=== PATIENT | male | born 1955 | race Caucasian/White ===

== ENCOUNTER 2020-08-22 10:14 | Emergency (ER) | payer MEDICARE, MEDICAID, SELFPAY ==
[2020-08-22 10:22] VITALS: BP 129/76; PULSE 95; RESP 18; TEMP 37.1; O2SAT 95; BMI 20.4
--- NOTE | 2020-08-22 10:44 | ED_ITS ---
HPI - Male Genitourinary General Chief complaint: Urogenital-Male Stated complaint: urinary problems Time Seen by Provider: 08/22/20 10:36 Source: patient Mode of arrival: ambulatory Limitations: other (poor historian ) History of Present Illness HPI Narrative: 65 y/o male presenting with acute on chronic urinary in continence. He states he has had issues with being incontinent for years but his brother brought him in for evaluation because he keeps accidentally urinating at night at it is soaking into his mattress. He denies dysuria, urinary frequency, hematuria, urinary hestinancy or incomplete emptying. Denies fever, chills, abdominal pain. MD Complaint: other (urinary incontinence ) Related Data Previous Rx's Medication Instructions Recorded levofloxacin 250 mg PO DAILY #3 tab 08/22/20 Allergies Allergy/AdvReac Type Severity Reaction Status Date / Time No Known Allergies Allergy Verified 08/22/20 10:43 Review of Systems Review of Systems: Constitutional: No Fever, No Chills ENT/Mouth: No sore throat, No Rhinorrhea, No Swallowing Difficulty Eyes: No Eye Pain, No Swelling, No Redness Cardiovascular: No Chest Pain, No SOB, No Orthopnea, No Edema Respiratory: No Cough, No Sputum, No Wheezing, No dyspnea Gastrointestinal: No Nausea, No Vomiting, No Diarrhea, No abdominal Pain, No Hematochezia, No Melena Genitourinary: No Dysuria, No Urinary Frequency, No Hematuria, + urinary frequency Musculoskeletal: No joint pain, No Myalgias Skin: No Skin Lesions, + rash (chronic) Neuro: No Weakness, No Numbness, No Dizziness, No Headache Psych: + Anxiety/Panic, No Depression Heme/Lymph: No Bruising, No Lymphadenopathy Endocrine: No Polyuria, No [facility]ydipsia [facility] Past Medical History Attestation statement: The following information was validated with the patient. Medical History Hernia Poor historian Social History Social History Alcohol intake: current Alcohol intake frequency: a few times a week Smoking Status: Current every day smoker Smoked in Last 30 Days: Yes Use of substances other than those prescribed or required for medical reasons: No Advance Directives: No Advance Directives Information Provided: Yes Physical Exam Vital Signs: Vital Signs: Vital Signs Temp Pulse Resp BP Pulse Ox 08/22/20 14:30 98.3 F 80 18 141/88 H 96 08/22/20 14:26 80 141/88 H 96 08/22/20 10:22 98.7 F 95 18 129/76 95 Body Mass Index 20.4 Appearance: Alert. Oriented X3. No acute distress. Eyes: Pupils equal, round and reactive to light. ENT: Pharynx normal. Neck: Normal inspection. Neck supple. CVS: Normal heart rate and rhythm. Pulses normal. Respiratory: No respiratory distress. Breath sounds normal. Abdomen: Soft and nontender. large non-tender mass central abdomen, non- pulsitile, not reducible, no skin changes. +BS x4 Skin: Skin warm and dry. Normal skin color. Normal skin turgor. No rashes. Extremities: mild LE edema, toe with onychomycosis Neuro: Oriented X 3. No motor deficit. No sensory deficit. Repeating questions without comprehending why he is in the ER. Course Course Course Narrative: 65 y/o here with chronic urinary incontinence - will f/u UTI. palpable mass in abd could be full bladder and significant urinary retention although it is not tender. He has a history of a hernia but is a very poor hi sotiran and not sure if fullness in his abdomen is new or old, it does not bother him. bladder scan pending. Reevaluation(s) Reevaluation #1: Bladder scan showing >999 cc in bladder. Unsuccessul catheterization attempted by nurse, manoj as well as Dr. Lee. Different size catheters and coude attempted without success. Now small amount of urethral bleeding. Dr. Tucker has been contacted at 11:51am who will come in to attempt after his next procedure. CT scan abd/pelvis ordered to assess for possible obstructing tumor. Reevaluation #2: Dr. Tucker was able to place a Madsen catheter with wire guidance. recommending follow up in 10 days in the office. Patient does not seem to comprehend or understand his diagnosis of BPH and urinary retention. Frequently agitated and repeating the same questions over and over. Question cognitive impairment. Do not feel he will be able to be adequately managed at home. Case management consult placed and PT consult placed as well for possible rehab placement. Reevaluation #3: Plan for evaluation tomorrow for possible SNF placement. Empirically treating for UTI given instrumentation today. Multiple WBC but this can be contaminant from blood. Consultations Consultation #1: Urology - Dr. Tucker MDM - Male Genitourinary Lab Data Result diagrams: 08/22/20 14:37 08/22/20 14:38 Labs: Lab Results 08/22/20 08/22/20 08/22/20 Range/Units 14:34 14:37 14:38 WBC 11.6 H (4.8-10.8) X10*3/uL RBC 3.75 L (4.60-5.80) X10*6/uL Hgb 11.8 L (14.0-18.0) g/dl Hct 37.1 L (42-52) % MCV 98.9 H (80-98) fL MCH 31.5 (27.0-33.0) pg MCHC 31.8 (31.0-36.0) g/dl RDW 14.6 (11.0-16.0) % Plt Count 313 (160-400) X10*3/uL MPV 8.8 L (9.4-12.4) fL Immature Gran % (Auto) 0.4 (0.0-0.4) % Neut % (Auto) 80.0 H (45-73) % Lymph % (Auto) 10.2 L (20-40) % [place] % (Auto) 8.4 (2-11) % Eos % (Auto) 0.7 (0-4) % Baso % (Auto) 0.3 (0-2) % Lymph # (Auto) 1.2 (1.2-4.9) X10*3/uL [place] # (Auto) 1.0 (0.1-1.2) X10*3/uL Eos # (Auto) 0.1 (0.0-0.4) X10*3/uL Baso # (Auto) 0.0 (0.0-0.2) X10*3/uL Abs Immat Gran (auto) 0.05 H (0.00-0.03) X10*3/uL Absolute Neuts (auto) 9.3 H (2.0-8.3) X10*3/uL Absolute Nucleated RBC 0.000 (0.0-0.012) X10*3/uL Nucleated RBC % (auto) 0.0 (0.0-0.2) /100WBC Sodium 143 (135-145) mmol/L Potassium 4.2 (3.3-5.1) mmol/l Chloride 108 (96-108) mmol/L Carbon Dioxide 27 (22-29) mmol/L Anion Gap 12 (12-20) BUN 20 H (9-16) mg/dL Creatinine 1.44 H (0.5-1.4) mg/dL Estim Creat Clear Calc 42.8 Estimated GFR 49 Random Glucose 95 (60-115) mg/dL Calcium 8.9 (8.4-10.2) mg/dL Urine Color PINK Urine Appearance CLOUDY Urine pH 6.0 (5.0-8.0) Ur Specific [place] 1.015 (1.005-1.025) Urine Protein TRACE (NEG-TRACE) MG/DL Urine Glucose (UA) NEG (NEG) MG/DL Urine Ketones NEG (NEG) MG/DL Urine Blood 3+ H (NEG) Urine Nitrite NEG (NEG) Ur Leukocyte Esterase 3+ H (NEG) Urine RBC TNTC H (0) /HPF Urine WBC 76-150 H (0-4) /HPF Ur Squamous Epith Cells NONE /LPF Urine Bacteria 1+ /LPF Discharge Plan Discharge Clinical Impression: Acute urinary retention, Enlarged prostate, Obstructive uropathy, LYNN (acute kidney injury) Prescriptions: New levofloxacin 250 mg tablet 250 mg PO DAILY Qty: 3 RF: 0
[2020-08-22] MEDS: Lidocaine HCl 2 % Urojet 10 ML JEL.PF.APP TOPICAL ×2 (11:28→14:56)
--- NOTE | 2020-08-22 11:45 | PC.NURSE ---
Addendum entered by Naomi Valentino 08/22/20 11:48: PT ATTEMPTED TO URINATE ON OWN, BUT UNABLE Original Note: PT'S BLADDER DISTENDED. BLADDER SCAN SHOWS >999ML. PROVIDER MADE AWARE AND DIRECTED THIS RN TO STRAIGHT CATH. THIS RN, HEALTHCARE FACILITY ADMINISTRATORARSLAN STAFFORD, PROVIDER KWADWO, AND DR CUELLAR ALL UNABLE TO INSERT HUERTA D/T RESISTANCE. BRIGHT RED BLEEDING FROM TIP OF PENIS. BLEEDING NOW CONTROLLED. UROLOGY CONSULTED
--- NOTE | 2020-08-22 11:52 | CT_ITS ---
EXAMINATION: CT ABDOMEN AND PELVIS WITHOUT CONTRAST CLINICAL INFORMATION: Urinary retention. Prostatomegaly. COMPARISON: None TECHNIQUE: Multidetector volumetric imaging was performed from the superior aspect of the liver through the pubic symphysis. Sagittal And coronal reformatted images were obtained on the technologist's workstation. This CT examination was performed using dose optimization techniques as appropriate, variously including the following: *Automated exposure control *Adjustment of mA and/or kV according to patient size (this includes techniques or standardized protocols for targeted exams where dose is matched to indication/reason for exam; i.e. extremities or head) *Use of iterative reconstruction technique DLP: 318 mGy-cm FINDINGS: LUNG BASES: There is some interstitial fibrosis seen about the lung bases bilaterally. No pleural effusion. There is a small pericardial effusion. Coronary artery calcifications noted. LIVER, GALLBLADDER, AND BILIARY TREE: The liver is normal in size, shape, and attenuation. No biliary ductal dilatation is present. There is a subcentimeter low-density lesion seen within segment 3 of the liver likely representing a cyst. The gallbladder is unremarkable with no evidence of radiopaque gallstones, gallbladder wall thickening, or obvious pericholecystic inflammatory changes. PANCREAS: Unremarkable. No focal mass is identified. No ductal dilatation. SPLEEN: Unremarkable. ADRENAL GLANDS: Unremarkable. KIDNEYS AND URETERS and bladder: There is moderate to severe bilateral hydronephrosis. No renal calculi are identified. Hydroureter is seen bilaterally down to a very distended urinary bladder. No definite bladder mass is seen. No significant bladder wall thickening is evident. No calcifications within the bladder are seen. GASTROINTESTINAL TRACT: No dilated loops of large or small bowel are seen. No free air or free fluid is noted. There is a large amount of stool seen throughout the colon. No evidence of acute appendicitis or acute diverticulitis. ABDOMINAL WALL: There is a left inguinal hernia containing a portion of descending colon. No evidence of strangulation. LYMPH NODES: No lymphadenopathy is appreciated. VASCULAR: There is mild calcific plaque within the aortoiliac arterial system. No abdominal aortic aneurysm. PELVIC VISCERA: The prostate gland is enlarged measuring approximately 5.8 x 6.8 x 5.5 cm in size. Prostatic calcifications are present. OSSEOUS STRUCTURES: No suspicious destructive bony lesions are identified. There is an old healed right posterior 10th rib fracture. There is multilevel degenerative disc disease seen throughout the lumbar spine. IMPRESSION: Obstructive uropathy with large prostate gland and distended urinary bladder with bilateral hydroureter and moderate to severe hydronephrosis. No definite intrinsic bladder lesion is seen on this noncontrast study. Small pericardial effusion. Small left inguinal hernia with knuckle of descending colon. This has the appearance of a direct inguinal hernia.
--- NOTE | 2020-08-22 12:26 | PC.NURSE ---
PT OFF TO CT
--- NOTE | 2020-08-22 13:20 | PC.NURSE ---
DR. MEJIA ABLE TO PLACE HUERTA CATHETER. HUERTA DRAINED 1800 ML RED TINTED URINE.
[2020-08-22 14:26] VITALS: BP 141/88; PULSE 80; O2SAT 96
--- NOTE | 2020-08-22 14:27 | PC.NURSE ---
PHYSICAL THERAPIST AT BEDSIDE FOR EVALUATION
[2020-08-22 14:30] VITALS: BP 141/88; PULSE 80; RESP 18; TEMP 36.8; O2SAT 96
[2020-08-22 14:42] LABS: MANUAL DIFF FLAG NO
[2020-08-22 14:46] LABS: Basophils Percent Auto 0.3 % (0-2); Eosinophils Absolute Auto 0.1 X10*3/uL (0.0-0.4); Eosinophils Percent Auto 0.7 % (0-4); Hematocrit 37.1 % (42-52); Hemoglobin 11.8 g/dl (14.0-18.0); Imm Gran Abs Auto 0.05 X10*3/uL (0.00-0.03); Imm Gran Pct Auto 0.4 % (0.0-0.4); Lymphocytes Absolute Auto 1.2 X10*3/uL (1.2-4.9); Lymphocytes Percent Auto 10.2 % (20-40); Mean Corpuscular HGB Conc 31.8 g/dl (31.0-36.0); Mean Corpuscular Hemoglobin 31.5 pg (27.0-33.0); Mean Corpuscular Volume 98.9 fL (80-98); Mean Platelet Volume 8.8 fL (9.4-12.4); Monocytes Percent Auto 8.4 % (2-11); Neutrophils Absolute Auto 9.3 X10*3/uL (2.0-8.3); Platelet Count 313 X10*3/uL (160-400); Red Blood Count 3.75 X10*6/uL (4.60-5.80); Red Cell Distribution Width 14.6 % (11.0-16.0); White Blood Count 11.6 X10*3/uL (4.8-10.8)
[2020-08-22 14:49] LABS: Glucose Urine UA NEG (NEG); Leukocyte Esterase Urine 3+ (NEG); Nitrite Urine NEG (NEG); Specific Gravity - Urine 1.015 (1.005-1.025); Urine Blood 3+ (NEG); Urine Ketones NEG (NEG); Urine Protein TRACE MG/DL (NEG-TRACE)
[2020-08-22 14:50] LABS: Appearance Urine CLOUDY; Color Urine PINK
[2020-08-22 14:57] LABS: Bacteria Urine 1+ /LPF; RBC Urine TNTC /HPF (0)
[2020-08-22 15:05] LABS: Anion Gap 12 (12-20); Blood Urea Nitrogen 20 mg/dL (9-16); Calcium 8.9 mg/dL (8.4-10.2); Carbon Dioxide 27 mmol/L (22-29); Chloride 108 mmol/L (96-108); Creatinine Clr Calc Pharmacy 42.8; Estimated Glomerular Filt Rate 49; Glucose Random 95 mg/dL (60-115); Potassium 4.2 mmol/l (3.3-5.1); Sodium 143 mmol/L (135-145)
[2020-08-22] MEDS: levoFLOXacin 500 MG TABLET PO (16:45)
--- NOTE | 2020-08-22 17:33 | MHC.CM.ED ---
[facility]VERSATION WITH SISTER IN LAW. FACILITY FEELS PATIENT HAS NO SKILL TO ADMIT. PHONE CONVERSATION WITH LIAISON RESULTED IN A REVIEW TOMORROW AND A TALK WITH FACILITY DON. PATIENT IS UNABLE TO BE TAUGHT CATH CARE. FAMILY IS UNABLE TO ASSIST WITH CATH CARE. PATIENT COULD BENEFIT FROM SKILLED P.T. SERVICES WELL.
--- NOTE | 2020-08-22 17:47 | MHC.CM.ED ---
MESSAGE LEFT @ [phone] (BROTHERMARLON) TO RETURN CALL TO THIS GAS OPERATOR WITH UPDATES. NO CALL BACK OF THIS NOTE.
[2020-08-22 21:54] VITALS: BP 133/85; PULSE 95; RESP 20; TEMP 37.6; O2SAT 99
[2020-08-23] VITALS (8 sets, daily range): BP systolic 99–123; BP diastolic 59–81; PULSE 71–89; RESP 14–18; TEMP 36.3–36.9; O2SAT 95–98
--- NOTE | 2020-08-23 00:13 | PC.NURSE ---
PT GIVEN A SANDWHICH AND GINGERALE AND CRACKERS. PT HAS MOMENTS OF TALKING OUT LOUD. NEEDS MET AT BEDSIDE. PT DENIES PAIN AND STATES HE FEELS OK.
--- NOTE | 2020-08-23 06:37 | PC.NURSE ---
fernando emptied for 1100 cc of blood tinged urine, no clots present, pt denies pain, abd soft flat and nontender.
--- NOTE | 2020-08-23 07:00 | PC.NURSE ---
PT SLEEPING RESP EVEN AND UNLABORBED. HOB UP, PT REPOSITIONED
--- NOTE | 2020-08-23 08:36 | PM.OP ---
Brief Operative Note Date of procedure: 08/23/20 Pre-op diagnosis: Difficult fernando catheter placement Post-op diagnosis: same Procedure: Difficult fernando catheter placement Surgeon: Aurelio Tucker MD Anesthesia: none Estimated blood loss (mL): 0 Pathology: none sent Condition: stable Disposition: same day
--- NOTE | 2020-08-23 08:37 | W.PM.OPN ---
Operative Note Operative Note Narrative: PreOperative Diagnosis: Difficult Catheter Placement Post Operative Diagnosis: Difficult Catheter Placement Procedure: Madsen catheter placement Surgeon: Dr Aurelio Tucker Anesthesia: Local Indications for procedure: hospital staff unable to place Madesn catheter Prw in outpatiente: penis prepped Lidocaine jelly placed per urethra Sensor guidewire placed Twenty Chinese coude catheter placed 10 cc placed in the balloon Good urine output 1250 cc in bag Can follow in outpatient
--- NOTE | 2020-08-23 08:55 | PC.NURSE ---
pt seen by case management (susan) pt aware of plan of care.
[2020-08-23] MEDS: levoFLOXacin 750 MG TABLET PO (09:57)
[2020-08-23 13:21] LABS: SARS COV2 PCR INHOUSE NEGATIVE (Negative)
[2020-08-23] MEDS: Nicotine 14 MG PATCH.TD24 TRANSDERMA (13:28)
--- NOTE | 2020-08-23 14:22 | MHC.CM.ED ---
pt has requested to go to [facility], ref. has been, patient accepted. pt is leaving [facility] at 330 pm. family notified of dc plan and time. all e.d. staff made aware of dc plan and time. cm to cont. to follow.
--- NOTE | 2020-08-23 14:26 | PC.NURSE ---
pt fernando cath is patent and draining oli red blood no clots noted. sue (mlp) at bedside. pt aware of plan of care.
--- NOTE | 2020-08-23 14:38 | PC.NURSE ---
PT'S HUERTA CATH EMPTIED FOR 1000ML JANEE RED BLOOD OF URINE, ANGELES (MLP) AT BEDSIDE, PT STATES THAT HE MAY HAVE PULLED AT HUERTA BECAUSE EARLIER ON HUERTA CATH CONTENTS WERE PINK IN COLOR.
--- NOTE | 2020-08-23 14:39 | PC.NURSE ---
NO BLOOD CLOTS NOT FROM HUERTA CATHANGELES (MLP) AWARE/.
--- NOTE | 2020-08-23 15:10 | MHC.CM.ED ---
pt's dc is cancelled d/t hematuria. dr. burt to see pt in the e.d. dc to snf may happen tomorrow. all e.d. staff aware of this new information. pt's family called to notify of dc. cm to cont. to follow.
--- NOTE | 2020-08-23 15:22 | PC.NURSE ---
REPORT FROM AGNES BARRERA
--- NOTE | 2020-08-23 16:09 | PC.NURSE ---
HUERTA DRAINING BLOODY URINE, NO CLOTS NOTED IRRIGATED WITH EASE, NO CLOTS PT YELLING AND SWEARING AT STAFF BECAUSE HE IS NOTE GOING TO THE SNF
--- NOTE | 2020-08-23 17:43 | PC.NURSE ---
BLOODY URINE NOTED, NO CLOTS PT SLEEPING, RESPIRATIONS EASY AND EVEN
--- NOTE | 2020-08-23 18:54 | PC.NURSE ---
100% OF DINNER TAKEN WELL PT IS VERY COOPERATIVE
--- NOTE | 2020-08-23 23:50 | PC.NURSE ---
RECIVED REPORT FROM HOLLY ALBERTO PT IS CURRENTLY ASLEEP, RESPIRATIONS EVEN AND UNLABORED, IN NO APPARENT DISTRESS AT THIS TIME
--- NOTE | 2020-08-24 00:10 | PC.NURSE ---
PT IS CURRENTLY ASLEEP, RESPIRATIONS EVEN AND UNLABORED, HUERTA IN PLACE, DRAINING MEDIUM CRANBERRY IN COLOR, SPOKE TO DR BEE ABOUT THE HEMATURIA, THIS RN RECOMMENDED THAT WE REPEAT LABD, H+H AND KIDNEY FUNCTIONS AND MAYBE CONSULT WITH DR. MEJIA WELL. THIS RN WAS REPORTED THAT SNIFF TRANSFER WAS PUT ON HOLD DUE TO THE HEMATURIA. HUERTA DARNING AROUND 1600CC
[2020-08-24 00:54] VITALS: BP 115/67; PULSE 75; RESP 16; O2SAT 95
--- NOTE | 2020-08-24 02:05 | PC.NURSE ---
pt continuos on sleeping, respirations even and unlabored, fernando emptied of 1500cc of red blood urin
[2020-08-24 02:19] VITALS: RESP 16
[2020-08-24 05:50] VITALS: BP 126/78; PULSE 68; RESP 14; O2SAT 93
[2020-08-24 06:04] LABS: MANUAL DIFF FLAG NO
[2020-08-24 06:14] LABS: Basophils Percent Auto 0.2 % (0-2); Eosinophils Absolute Auto 0.4 X10*3/uL (0.0-0.4); Eosinophils Percent Auto 3.2 % (0-4); Hematocrit 37.1 % (42-52); Imm Gran Abs Auto 0.06 X10*3/uL (0.00-0.03); Imm Gran Pct Auto 0.5 % (0.0-0.4); Lymphocytes Absolute Auto 1.2 X10*3/uL (1.2-4.9); Lymphocytes Percent Auto 9.2 % (20-40); Mean Corpuscular HGB Conc 32.3 g/dl (31.0-36.0); Mean Corpuscular Hemoglobin 32.1 pg (27.0-33.0); Mean Corpuscular Volume 99.2 fL (80-98); Mean Platelet Volume 9.1 fL (9.4-12.4); Monocytes Absolute Auto 1.3 X10*3/uL (0.1-1.2); Monocytes Percent Auto 10.2 % (2-11); Neutrophils Absolute Auto 9.9 X10*3/uL (2.0-8.3); Neutrophils Percent Auto 76.7 % (45-73); Platelet Count 291 X10*3/uL (160-400); Red Blood Count 3.74 X10*6/uL (4.60-5.80); Red Cell Distribution Width 14.6 % (11.0-16.0); White Blood Count 12.9 X10*3/uL (4.8-10.8)
[2020-08-24 06:34] LABS: Alanine Aminotransferase 7 U/L (0-40); Alkaline Phosphatase 96 U/L (39-117); Anion Gap 11 (12-20); Aspartate Amino Transferase 10 U/L (5-37); Bilirubin Total 0.3 mg/dL (0.0-1.0); Blood Urea Nitrogen 21 mg/dL (9-16); Carbon Dioxide 26 mmol/L (22-29); Chloride 105 mmol/L (96-108); Creatinine Clr Calc Pharmacy 52.7; Estimated Glomerular Filt Rate > 60; Glucose Random 107 mg/dL (60-115); Potassium 4.2 mmol/l (3.3-5.1); Sodium 138 mmol/L (135-145); Total Protein 5.9 g/dL (6.5-8.0)
[2020-08-24 08:41] VITALS: BP 126/79; PULSE 79; RESP 18
--- NOTE | 2020-08-24 08:50 | MHC.CM.ED ---
pt has a bed at [facility] , however pt is not medically cleared at this time. pa has a call into urology to address hematuria. once urology sees pt then he can be medically cleared and go to str or require further attention here. cm is on hold waiting for direction from wilmar XIE . cm is cont. to follow patient.
[2020-08-24] MEDS: levoFLOXacin 750 MG TABLET PO (09:13)
[2020-08-24 10:10] VITALS: BP 111/60; PULSE 111; RESP 22
--- NOTE | 2020-08-24 12:02 | PC.NURSE ---
provider ordering another consult with dr messina
--- NOTE | 2020-08-24 13:42 | MHC.CM.ED ---
pt has been seen by urologist today. pa has medically cleared patient. he is dc'ing to [facility] today at 330 pm . all e.d. staff is aware of this dc plan. cm to cont. to follow.
[2020-08-24 17:52] VITALS: BP 105/81; PULSE 84; RESP 16
--- NOTE | 2020-08-24 17:53 | PC.NURSE ---
patient to go to [facility], Transportation is behind (action).
== END 2020-08-24 18:51 ==
PROVIDERS: Physician Assistant; Student in an Organized Health Care Education/Training Program; Emergency Provider Emergency Medicine
DX: R33.9 Retention of urine, unspecified (principal); Z20.828 Contact with and (suspected) exposure to other viral communicable diseases; N40.0 Benign prostatic hyperplasia without lower urinary tract symptoms; N13.9 Obstructive and reflux uropathy, unspecified; N17.9 Acute kidney failure, unspecified
CPT/HCPCS: 51702; 36415; 51798; 74176; 80048; 80053; 81001; 85025; 87086; 87088; 87186; 87635; 97162; 99285

== ENCOUNTER → 2020-09-04 10:19 | Outpatient (BNVA) | payer MEDICARE, MEDICAID, SELFPAY | PROVIDERS: Visit Provider Urology | DX: Z76.89 Persons encountering health services in other specified circumstances (principal) | CPT/HCPCS: 51701; 99212 ==

== ENCOUNTER 2020-09-21 18:06 | Inpatient (IN) | payer MEDICARE, MEDICAID, SELFPAY ==
[2020-09-21 19:10] VITALS: BP 99/80; PULSE 106; RESP 20; TEMP 36.5; O2SAT 98; BMI 20.1
--- NOTE | 2020-09-21 19:16 | PC.NURSE ---
CRAB BUTCHER at bedside for primary eval. Plan for UA, labwork and fernando change.
--- NOTE | 2020-09-21 19:20 | XR_ITS ---
EXAMINATION: XR CHEST CLINICAL INFORMATION: Baseline COMPARISON: None TECHNIQUE: Frontal view of the chest was obtained. 7:27 PM FINDINGS: Lungs are clear. No pulmonary vascular congestion. There is no pleural effusion. The heart size is normal. The cardiac and mediastinal contours are normal. There are multilevel degenerative changes of dorsal spine. XR/XR chest 1V IMPRESSION: Unremarkable examination.
--- NOTE | 2020-09-21 19:20 | ECG_ITS ---
Test Reason : AMS Blood Pressure : / mmHG Vent. Rate : 088 BPM Atrial Rate : 088 BPM P-R Int : 158 ms QRS Dur : 098 ms QT Int : 402 ms P-R-T Axes : 061 -17 060 degrees QTc Int : 486 ms Sinus rhythm with Premature atrial complexes Intra-ventricular conduction delay Abnormal ECG No previous ECGs available Referred By: Regina Delvalle Electronically Signed By:JANEE MOSQUEDA MD
--- NOTE | 2020-09-21 19:24 | PC.NURSE ---
PT ARRIVES TO ED VIA AMBULANCE FROM [facility] HE PRESENTS WITH NO FACILITY REPORT, AND NO EMS PATCH. HE IS IN NO OUTWARD DISTRESS AND IS ABLE TO STATE HIS NAME AND WHERE HE WAS. HE ALSO STATES HIS BROTHER IS HIS GUARDIAN AND THAT HE MOVED HIM HERE TO [facility]-HIS BROTHER IS IN [place] CURRENTLY. THIS RN CALLED AND SPOKE TO MARY BARRERA AT [facility] AND SHE STATES THE SOCIAL WORK TEAM AT [facility] HAD ARRANGED FOR HIS TRANSPORT BACK TO THIS ED, FOR PLACEMENT REQUESTED BY HIS BROTHER. INCLUDED IN HIS PAPERS IS THE PERMANENT DECREE OF GUARDIANSHIP STATING HIS BROTHER IN[employer] FOOTE IS HIS LEGALLY APPOINTED GUARDIAN. HE WAS ADMITTED ON 08/24/20 TO [facility] FROM THIS FACILITY. NURSING GAS CHECK PAD MAKER IS AWARE OF THIS PT AND ORTHOPEDIC SHOES SALESPERSON YOLANDA HINES WAS CONTACTED AND AWARE WELL,.ACCORDING TO THE REPORT BACK,THE HOSPITAL ADMINISTRATION IS AWARE OF THIS CASE AND PLAN IS TO HOLD HIM HERE FOR THE WEEKEND AND THE SITUATION WILL BE ADDRESSED FURTHER ON THURSDAY PROVIDER LIEN ORDONEZ IS AWARE AND PT WILL BE MEDICALLY CLEARED WHILE HOLDING IN ED.
--- NOTE | 2020-09-21 19:33 | PC.NURSE ---
XRay at bedside.
--- NOTE | 2020-09-21 19:53 | PC.NURSE ---
IV established, all labs including BCX x 2 and lactic obtained and sent. Urine obtained and sent. shampoo technician at bedside for EKG and fernando change. Awaiting labwork results.
--- NOTE | 2020-09-21 19:53 | ED.GENADULT ---
HPI - General Adult General Chief complaint: General Medical Stated complaint: PSYCH EVAL Time Seen by Provider: 09/21/20 19:20 Source: EMS Mode of arrival: EMS Limitations: altered mental status History of Present Illness HPI narrative: 65-year-old male with altered mental status, chronic Madsen presents for evaluation. Patient was transported to this facility from [facility] via EMS for his brother's request. Brother is the guardian, in [place] at this time, guardian is dissatisfied with [facility], and wants him placed in a different facility. Patient's urine is blood tinged with sediment, he is pleasantly confused, compliant with care, and does not have any complaints at this time. Onset (ago): unknown Related Data Previous Rx's Medication Instructions Recorded levofloxacin 250 mg PO DAILY #3 tab 08/22/20 Allergies Allergy/AdvReac Type Severity Reaction Status Date / Time No Known Allergies Allergy Verified 08/22/20 10:43 Review of Systems Review of Systems: ROS unable to be obtained due to altered mental status Yes all other systems are reviewed and are negative [facility] Past Medical History Source: old records reviewed Medical History Hernia Poor historian Social History Social History Alcohol intake: current Alcohol intake frequency: a few times a week Smoking Status: Current every day smoker Advance Directives: No Advance Directives Information Provided: No Physical Exam Vital Signs: Vital Signs: Last Vital Signs Temp 97.8 F 09/22/20 00:00 Pulse 75 09/22/20 00:00 Resp 18 09/22/20 00:00 BP 114/64 09/22/20 00:00 Pulse Ox 97 09/22/20 00:00 Body Mass Index 20.1 Appearance: Alert. Oriented To self. No acute distress. Eyes: Pupils equal, round and reactive to light. ENT: Pharynx normal. Neck: Normal inspection. Neck supple. CVS: Normal heart rate and rhythm. Pulses normal. Respiratory: No respiratory distress. Breath sounds normal. Abdomen: Soft and nontender. : chronic Madsen with sediment and blood tinged urine. Skin: Skin warm and dry. Normal skin color. Normal skin turgor. Extremities: No lower extremity edema. Neuro: No motor deficit. No sensory deficit. Course Course Course Narrative: 65-year-old male under guardianship of his brother, presents for a social insurance specialist hold. He was patient in this facility on 08/22/2020 and was placed at [facility]. His brother, who is guardian, found out that he was at this facility, brother disapproval of this facility and requested that patient be transferred to [facility]. This patient had a [facility] order in place however does not have 1 at present. Our case management Sylvester Robertson is aware of this situation, nursing telephone order supervisor was updated by charge nurse upon patient's arrival. [facility]'s legal team will meet on Thursday for placement of this patient. Given the condition of patient's Madsen, will order urinalysis, Madsen change, CBC, Chem 7, EKG, troponin. urinalysis positive for UTI, order for IV ceftriaxone. BUN mildly elevated at 17, however patient is eating and drinking without difficulty. Plan of care is for case management social insurance specialist for placement. Medical Decision Making Differential Diagnosis Differential Diagnosis: UTI, urinary retention Medical Records Medical records reviewed: Yes I reviewed the patient's medical records. Lab Data Lab results reviewed: Yes I reviewed the patient's lab results. Result diagrams: 09/21/20 19:47 09/21/20 19:47 Labs: Lab Results 09/21/20 09/21/20 09/21/20 Range/Units 19:47 19:47 19:47 WBC 9.1 (4.8-10.8) X10*3/uL RBC 3.80 L (4.60-5.80) X10*6/uL Hgb 12.0 L (14.0-18.0) g/dl Hct 37.2 L (42-52) % MCV 97.9 (80-98) fL MCH 31.6 (27.0-33.0) pg MCHC 32.3 (31.0-36.0) g/dl RDW 13.6 (11.0-16.0) % Plt Count 381 (160-400) X10*3/uL MPV 8.8 L (9.4-12.4) fL Immature Gran % (Auto) 0.5 H (0.0-0.4) % Neut % (Auto) 76.6 H (45-73) % Lymph % (Auto) 10.2 L (20-40) % Freestone % (Auto) 8.5 (2-11) % Eos % (Auto) 4.0 (0-4) % Baso % (Auto) 0.2 (0-2) % Lymph # (Auto) 0.9 L (1.2-4.9) X10*3/uL Freestone # (Auto) 0.8 (0.1-1.2) X10*3/uL Eos # (Auto) 0.4 (0.0-0.4) X10*3/uL Baso # (Auto) 0.0 (0.0-0.2) X10*3/uL Abs Immat Gran (auto) 0.05 H (0.00-0.03) X10*3/uL Absolute Neuts (auto) 7.0 (2.0-8.3) X10*3/uL Absolute Nucleated RBC 0.000 (0.0-0.012) X10*3/uL Nucleated RBC % (auto) 0.0 (0.0-0.2) /100WBC PT 12.5 (10.8-13.0) SEC INR 1.1 (0.9-1.1) APTT 37.0 (24.1-38.0) SEC Sodium 141 (135-145) mmol/L Potassium 4.0 (3.3-5.1) mmol/l Chloride 104 (96-108) mmol/L Carbon Dioxide 27 (22-29) mmol/L Anion Gap 14 (12-20) BUN 17 H (9-16) mg/dL Creatinine 0.76 (0.5-1.4) mg/dL Estim Creat Clear Calc 77.7 Estimated GFR > 60 Random Glucose 101 (60-115) mg/dL Lactic Acid (0.5-2.0) mmol/L Calcium 8.4 (8.4-10.2) mg/dL Magnesium 2.0 (1.6-2.6) mg/dL Troponin I High Sens (<3.5-35.0) ng/L Urine Color Urine Appearance Urine pH (5.0-8.0) Ur Specific Woodbury (1.005-1.025) Urine Protein (NEG-TRACE) MG/DL Urine Glucose (UA) (NEG) MG/DL Urine Ketones (NEG) MG/DL Urine Blood (NEG) Urine Nitrite (NEG) Ur Leukocyte Esterase (NEG) Urine RBC (0) /HPF Urine WBC (0-4) /HPF Ur Squamous Epith Cells /LPF Triple Phos Crystals /LPF Urine Bacteria /LPF 09/21/20 09/21/20 09/21/20 Range/Units 19:47 19:47 19:48 WBC (4.8-10.8) X10*3/uL RBC (4.60-5.80) X10*6/uL Hgb (14.0-18.0) g/dl Hct (42-52) % MCV (80-98) fL MCH (27.0-33.0) pg MCHC (31.0-36.0) g/dl RDW (11.0-16.0) % Plt Count (160-400) X10*3/uL MPV (9.4-12.4) fL Immature Gran % (Auto) (0.0-0.4) % Neut % (Auto) (45-73) % Lymph % (Auto) (20-40) % Freestone % (Auto) (2-11) % Eos % (Auto) (0-4) % Baso % (Auto) (0-2) % Lymph # (Auto) (1.2-4.9) X10*3/uL Freestone # (Auto) (0.1-1.2) X10*3/uL Eos # (Auto) (0.0-0.4) X10*3/uL Baso # (Auto) (0.0-0.2) X10*3/uL Abs Immat Gran (auto) (0.00-0.03) X10*3/uL Absolute Neuts (auto) (2.0-8.3) X10*3/uL Absolute Nucleated RBC (0.0-0.012) X10*3/uL Nucleated RBC % (auto) (0.0-0.2) /100WBC PT (10.8-13.0) SEC INR (0.9-1.1) APTT (24.1-38.0) SEC Sodium (135-145) mmol/L Potassium (3.3-5.1) mmol/l Chloride (96-108) mmol/L Carbon Dioxide (22-29) mmol/L Anion Gap (12-20) BUN (9-16) mg/dL Creatinine (0.5-1.4) mg/dL Estim Creat Clear Calc Estimated GFR Random Glucose (60-115) mg/dL Lactic Acid 1.5 (0.5-2.0) mmol/L Calcium (8.4-10.2) mg/dL Magnesium (1.6-2.6) mg/dL Troponin I High Sens < 3.5 (<3.5-35.0) ng/L Urine Color MAGDALENA Urine Appearance CLOUDY Urine pH >= 9.0 H (5.0-8.0) Ur Specific Woodbury <= 1.005 (1.005-1.025) Urine Protein 3+ H (NEG-TRACE) MG/DL Urine Glucose (UA) NEG (NEG) MG/DL Urine Ketones NEG (NEG) MG/DL Urine Blood 3+ H (NEG) Urine Nitrite POS H (NEG) Ur Leukocyte Esterase 3+ H (NEG) Urine RBC 50-75 H (0) /HPF Urine WBC 5-9 H (0-4) /HPF Ur Squamous Epith Cells NONE /LPF Triple Phos Crystals 1+ /LPF Urine Bacteria 3+ /LPF Imaging Data Chest x-ray: Attestation: I personally reviewed and interpreted this imaging study as follows: Radiologist's impression: EXAMINATION: XR CHEST CLINICAL INFORMATION: Baseline COMPARISON: None TECHNIQUE: Frontal view of the chest was obtained. 7:27 PM FINDINGS: Lungs are clear. No pulmonary vascular congestion. There is no pleural effusion. The heart size is normal. The cardiac and mediastinal contours are normal. There are multilevel degenerative changes of dorsal spine. XR/XR chest 1V IMPRESSION: Unremarkable examination. ECG Data Attestation: I personally reviewed and interpreted this ECG as follows: Prior ECG tracings: not available for review Interpretation: Vent. Rate : 088 BPM Atrial Rate : 088 BPM P-R Int : 158 ms QRS Dur : 098 ms QT Int : 402 ms P-R-T Axes : 061 -17 060 degrees QTc Int : 486 ms Sinus rhythm with Premature atrial complexes Prolonged QT Abnormal ECG No previous ECGs available date 09/21/2020 time 7:53 p.m. Discharge Plan Discharge Prescriptions: No Action levofloxacin 250 mg tablet 250 mg PO DAILY Qty: 3 RF: 0
[2020-09-21 19:56] LABS: MANUAL DIFF FLAG NO
[2020-09-21 19:58] LABS: Glucose Urine UA NEG (NEG); Leukocyte Esterase Urine 3+ (NEG); Nitrite Urine POS (NEG); PH >= 9.0 (5.0-8.0); Specific Gravity - Urine <= 1.005 (1.005-1.025); Urine Blood 3+ (NEG); Urine Ketones NEG (NEG)
[2020-09-21 19:59] LABS: Appearance Urine CLOUDY; Color Urine AMBER; Urine Protein 3+ MG/DL (NEG-TRACE)
[2020-09-21 20:00] LABS: Basophils Percent Auto 0.2 % (0-2); Eosinophils Absolute Auto 0.4 X10*3/uL (0.0-0.4); Hematocrit 37.2 % (42-52); Imm Gran Abs Auto 0.05 X10*3/uL (0.00-0.03); Imm Gran Pct Auto 0.5 % (0.0-0.4); Lymphocytes Absolute Auto 0.9 X10*3/uL (1.2-4.9); Lymphocytes Percent Auto 10.2 % (20-40); Mean Corpuscular HGB Conc 32.3 g/dl (31.0-36.0); Mean Corpuscular Hemoglobin 31.6 pg (27.0-33.0); Mean Corpuscular Volume 97.9 fL (80-98); Mean Platelet Volume 8.8 fL (9.4-12.4); Monocytes Absolute Auto 0.8 X10*3/uL (0.1-1.2); Monocytes Percent Auto 8.5 % (2-11); Neutrophils Percent Auto 76.6 % (45-73); Platelet Count 381 X10*3/uL (160-400); Red Cell Distribution Width 13.6 % (11.0-16.0); White Blood Count 9.1 X10*3/uL (4.8-10.8)
[2020-09-21 20:02] LABS: INTERNATIONAL NORM RATIO 1.1 (0.9-1.1); Prothrombin Time 12.5 SEC (10.8-13.0)
[2020-09-21 20:05] LABS: Bacteria Urine 3+ /LPF; RBC Urine 50-75 /HPF (0); Triple Phosphate Crystal Urine 1+ /LPF
--- NOTE | 2020-09-21 20:20 | PC.NURSE ---
Pt requesting food, given a sandwich and jello. Sitter at bedside.
[2020-09-21 20:24] LABS: Lactic Acid 1.5 mmol/L (0.5-2.0)
[2020-09-21 20:28] LABS: Anion Gap 14 (12-20); Blood Urea Nitrogen 17 mg/dL (9-16); Calcium 8.4 mg/dL (8.4-10.2); Carbon Dioxide 27 mmol/L (22-29); Chloride 104 mmol/L (96-108); Creatinine Clr Calc Pharmacy 77.7; Estimated Glomerular Filt Rate > 60; Glucose Random 101 mg/dL (60-115); Sodium 141 mmol/L (135-145)
[2020-09-21 20:35] LABS: Troponin-I High Sensitivity < 3.5 ng/L (<3.5-35.0)
--- NOTE | 2020-09-21 20:40 | PC.NURSE ---
Pt transferred into hospital bed with tech via drawsheet, into POC.
[2020-09-21] MEDS: cefTRIAXone sodium 1 GM in 0.9 % Sodium Chloride 50 ML IV (20:50)
--- NOTE | 2020-09-21 20:50 | PC.NURSE ---
Pt medicated per EMAR. Pt resting in bed, watching TV.
[2020-09-21 20:51] VITALS: BP 136/79; PULSE 80; RESP 16; O2SAT 98
[2020-09-21 23:08] VITALS: BP 124/74; PULSE 74; RESP 16
--- NOTE | 2020-09-21 23:41 | PC.NURSE ---
CALL PLACED TO [facility]. NO COPY OF CURRENT MED LIST OR MAR IS ON CHART TO COMPLETE MED REC. STAFF WILL ATTEMPT TO FAX TO US.
[2020-09-22] VITALS (12 sets, daily range): BP systolic 112–136; BP diastolic 64–86; PULSE 70–90; RESP 16–18; TEMP 36.4–36.9; O2SAT 96–100
--- NOTE | 2020-09-22 05:58 | PC.NURSE ---
Addendum entered by Elsa Keen 09/22/20 05:59: Pt scheduled for ABX q24h. Original Note: This RN discussing treatment for UTI with MD due to CM throughout the weekend. Pt scheduled for ABX q12h.
--- NOTE | 2020-09-22 06:14 | PC.NURSE ---
Pt awake and alert, requesting PO. Pt provided with crackers and apple juice per request, awaiting breakfast, watching TV. VSS. 1000 ml of urine emptied from fernando bag. Continue to monitor.
[2020-09-22] MEDS: cefTRIAXone sodium 1 GM in 0.9 % Sodium Chloride 50 ML IV (08:40)
[2020-09-22] MEDS: Tamsulosin HCL 0.4 MG CAPSULE PO (11:12)
[2020-09-22] MEDS: Nicotine 14 MG PATCH.TD24 TRANSDERMA (11:12)
[2020-09-22] MEDS: Baclofen 10 MG TABLET PO ×2 (11:12→21:19)
[2020-09-22] MEDS: Atorvastatin Calcium 10 MG TABLET PO (11:12)
--- NOTE | 2020-09-22 11:37 | PC.NURSE ---
patient woke to verbal stimulus, vitals obtained, pt medicated per order-swallows pills whole, fernando cath patient/draining, will continue to monitor.
--- NOTE | 2020-09-22 14:20 | PC.NURSE ---
pt currently sleeping, will continue to monitor
--- NOTE | 2020-09-22 15:39 | MHC.CM.ED ---
Pt from [facility]: [facility] [place] but will require [facility] legal intervention on Thursday, 09/24 to address his [facility] order for the administration of psych medications. Director of and associated senior management personnel aware of pt's situation. Pt will hold in our ED until Thursday, 09/24 when risk/legal can assist CM with Gram[facility] order/placement issues. ED staff aware of pt's hold
--- NOTE | 2020-09-22 16:39 | PC.NURSE ---
patient is currently sleeping, rr 18, will continue to monitor and obtain a set of vitals when he wakes
--- NOTE | 2020-09-22 20:19 | PC.NURSE ---
PT ATE DINNER 100% AND NOW RESTING QUIETLY AND DENIES ANY COMPLAINTS. WILL CONTINUE TO MONITOR PT.
--- NOTE | 2020-09-22 21:19 | SUR.OPER ---
PT SLEEPING IN STRETCHER, WAKES TO VERBAL STIMULI, RESPIRATIONS EASY, N/L. PT MEDICATED PER EMAR. WILL CONTINUE TO MONITOR PT.
[2020-09-23] VITALS (10 sets, daily range): BP systolic 102–136; BP diastolic 63–86; PULSE 75–97; RESP 16–18; O2SAT 97–99
--- NOTE | 2020-09-23 03:48 | PC.NURSE ---
PT SLEEPING, WAKES TO VERBAL STIMULI, RESPIRATIONS EASY, N/L. PT AWAITING FOR BED PLACEMENT.
--- NOTE | 2020-09-23 06:03 | PC.NURSE ---
PT REMAINS SLEEPING, PT YELLS OUT DURING HIS SLEEP. PT WAKES TO VERBAL STIMULI. EMPTIED 600ML OF YELLOW URINE FROM [facility]A. WILL CONTINUE TO MONITOR PT.
[2020-09-23] MEDS: levoFLOXacin 250 MG TABLET PO (08:23)
[2020-09-23] MEDS: Tamsulosin HCL 0.4 MG CAPSULE PO (08:24)
[2020-09-23] MEDS: Nicotine 14 MG PATCH.TD24 TRANSDERMA (08:24)
[2020-09-23] MEDS: Baclofen 10 MG TABLET PO ×2 (08:24→22:13)
--- NOTE | 2020-09-23 10:17 | PC.NURSE ---
Pt alert/oriented x 3. Will ask questions about plan and at times can be abrupt but then apologetic. Will shout phrases and statements not related to current situation but easily redirected. Has indwelling cath, dark yellow urine noted, fernando is patent. Ceftriaxone D/C'd and will continue on PO Levaquin for ordered course for chronic UTI. Pt denies pain/discomfort. Able to adjust self in bed. Vitals are stable. Ate breakfast well without assist. Able to make needs known. Call bernardo within reach.
--- NOTE | 2020-09-23 21:18 | PC.NURSE ---
PATIENT BABBLING TO SELF REGARDING VARIOUS TOPICS. DENIES COMPLAINTS AT THIS TIME. WILL CONTINUE TO MONITOR.
[2020-09-23] MEDS: cloZAPine 100 MG TABLET 400 MG PO (22:13)
--- NOTE | 2020-09-23 22:14 | PC.NURSE ---
PATIENT MEDICATED WITH SCHEDULED MEDICATIONS. DENIES COMPLAINTS AT THIS TIME. WILL CONTINUE TO MONITOR.
[2020-09-24] VITALS (9 sets, daily range): BP systolic 98–148; BP diastolic 69–82; PULSE 78–107; RESP 14–20; TEMP 36.3–36.9; O2SAT 96–99
--- NOTE | 2020-09-24 | PC.NURSE ---
PATIENT REQUESTED AND GIVEN WATER. NO ACUTE DISTRESS NOTED. CALL MACARIO WITHIN REACH. LARGE BOWEL MOVEMENT IN BEDSIDE COMMODE. WILL CONTINUE TO MONITOR. CASE MANAGEMENT IN THE MORNING PLANNED.
--- NOTE | 2020-09-24 04:36 | PC.NURSE ---
PATIENT SLEEPING AT THIS TIME. RESPIRATIONS EVEN & UNLABORED. SKIN PINK WARM & DRY. NO ACUTE DISTRESS NOTED AT THIS TIME. WILL CONTINUE TO MONITOR.
[2020-09-24] MEDS: Baclofen 10 MG TABLET PO ×2 (09:00→21:46)
[2020-09-24] MEDS: levoFLOXacin 250 MG TABLET PO (09:00)
[2020-09-24] MEDS: Nicotine 14 MG PATCH.TD24 TRANSDERMA (09:01)
[2020-09-24] MEDS: Tamsulosin HCL 0.4 MG CAPSULE PO (09:01)
--- NOTE | 2020-09-24 09:29 | PC.NURSE ---
Report received form HOLLY John. Pt is alert/oriented x 3, speaks in full sentences, skin is pwdi, and he is nad. Medicated per emar with AM scheduled meds, and provided with a bed bath. He offers no complaints at this time. Plan at this time is for case management to coordinate next steps. Will continue to monitor.
--- NOTE | 2020-09-24 10:14 | MHC.CM.PN ---
This typewriter repairer placed call to additional petitioner on patient's guardianship- Viry Summers. She confirmed that she lives with Beto Summers and Hair Summers prior to his admission to [facility]. She also stated that pt has been prescribed antipsychotics for several years due to PTSD from his years of service. She reports Beto Summers will be returning from [facility] on ThursdaySeptember 27. Beto is not aware that the pt is currently at [facility] [place] to [place] out of the [place] with no form of contact, Viry has also confirmed there is no way to contact Beto. In discussion with the Senior team, we have discussed a plan to bring the patient to the medical floor for a social admission. Paulina Patterson, [facility] immigration attorney, has been notified to initiate process for petitioning the courts for a stephanie's order. Once Beto returns we will discuss the next steps for discharge planning for the patient.
[2020-09-24 11:25] LABS: IDNOW Serial# 9DD0AD1C
[2020-09-24 11:26] LABS: COVID-19 Test Negative (Negative)
--- NOTE | 2020-09-24 11:29 | PC.NURSE ---
Plan is to admit pt. Pre-admission rapid covid swab performed as ordered.
--- NOTE | 2020-09-24 13:49 | P.HPHOSP_ITS ---
History of Present Illness Date of Service: 09/24/20 Chief Complaint: Social issue , placement problem a 65 years old male with PMH of psychiatric disorder under guardianship of his brother presents to the hospital from a facility for social issue. The patient was primarily sent to [facility] on August 22. Upon reviewing his status last week the facility noticed that the patient has a guardianship who day contacted and requested them to send the patient back to the hospital as he does not want him to be at [facility]. The patient was sent back from the facility and has been staying in the emergency since then. Found to have urine infection treated with oral antibiotics. After discussing with high school social science teacher and medical imaging technologist decision was to admit the patient until placement issue is fixed. Review of Systems Review of Systems: No fever, chills or weakness No chest pain, palpitation No shortness of breath or coughing No abdominal pain, nausea or vomiting chronic Madsen's catheter No any rash or wounds PMFSH Medical History Hernia Poor historian Social History Alcohol intake: current Alcohol intake frequency: does not drink Smoking Status: Current every day smoker Use of substances other than those prescribed or required for medical reasons: No Advance Directives: No Advance Directives Information Provided: No Meds Allergies Allergy/AdvReac Type Severity Reaction Status Date / Time No Known Allergies Allergy Verified 08/22/20 10:43 Home Medications Medication Instructions Recorded Confirmed Type baclofen 10 mg PO BID 09/22/20 09/22/20 History bisacodyl [Dulcolax (bisacodyl)] 10 mg MO DAILY PRN 09/22/20 09/22/20 History clotrimazole [Clotrimazole 1 applic TOPICAL TID PRN 09/22/20 09/22/20 History Anti-Fungal] clozapine 400 mg PO BEDTIME 09/22/20 09/22/20 History magnesium hydroxide [Milk of 30 ml PO DAILY PRN 09/22/20 09/22/20 History Magnesia] nicotine [Nicoderm CQ] 1 patch TRANSDERMAL DAILY 09/22/20 09/22/20 History simvastatin 10 mg PO DAILY 09/22/20 09/22/20 History tamsulosin [Flomax] 0.4 mg PO DAILY 09/22/20 09/22/20 History Physical Exam Vital Signs and Narrative: Vital Signs: Last Vital Signs Temp 97.3 F 09/24/20 08:58 Pulse 107 H 09/24/20 12:23 Resp 14 09/24/20 12:23 BP 107/76 09/24/20 12:23 Pulse Ox 98 09/24/20 12:23 Body Mass Index 20.1 Constitutional : Alert, oriented to place only, not in distress Neck : Normal inspection, Supple Cardiovascular : RRR, S1 S2, no lower extremity edema Respiratory : Good bilateral air entry, no crackles, wheezes or rhonchi Gastrointestinal: soft, lax, Normal bowel sounds, Non tender Skin : Warm/Dry, No rash Neurological : Alert & oriented to place only, No focal deficit Results Labs CBC and Chem 7: 09/21/20 19:47 09/21/20 19:47 Labs: Laboratory Results - last 24 hr 09/24/20 10:58 COVID-19 (ZAN) Negative COVID-19 Clin Com See Note Assessment and Plan (1) Social problem: Status: Acute (2) Urinary tract infection: Status: Acute a 65 years old male with PMH of psychiatric disorder under guardianship of his brother presents to the hospital from a facility for social issue. UTI Urine culture growing sensitive bacteria next Lyme continue Levaquin for 3 more days Social problem Guardianship under his brother, brother in [place] at this point Will come back on Thursday Looking for placement [facility] Psychiatry problem Continue clozapine BPH continue tamsulosin On chronic Madsen at this point Supposed to follow up with Dr. Tucker in the office as outpatient DVT PPX Lovenox
--- NOTE | 2020-09-24 15:03 | PC.NURSE ---
Call placed to give report on pt transferring to the floor. Awaiting RN call back.
[2020-09-24] MEDS: Enoxaparin Sodium 40 MG/0.4 ML SYRINGE SUBCUT (17:33)
[2020-09-24] MEDS: 0.9 % Sodium Chloride Flush 3 ML SYRINGE IVFLUSH ×2 (17:35→21:47)
[2020-09-24] MEDS: cloZAPine 100 MG TABLET 400 MG PO (21:46)
[2020-09-25 03:47] VITALS: BP 115/79; PULSE 92; RESP 19; TEMP 36.4; O2SAT 100
[2020-09-25 07:08] LABS: Hematocrit 39.9 % (42-52); Hemoglobin 12.6 g/dl (14.0-18.0); Mean Corpuscular HGB Conc 31.6 g/dl (31.0-36.0); Mean Corpuscular Hemoglobin 30.9 pg (27.0-33.0); Mean Corpuscular Volume 97.8 fL (80-98); Platelet Count 411 X10*3/uL (160-400); Red Blood Count 4.08 X10*6/uL (4.60-5.80); Red Cell Distribution Width 13.9 % (11.0-16.0)
[2020-09-25 07:39] LABS: Anion Gap 14 (12-20); Blood Urea Nitrogen 24 mg/dL (9-16); Calcium 8.9 mg/dL (8.4-10.2); Carbon Dioxide 27 mmol/L (22-29); Chloride 104 mmol/L (96-108); Estimated Glomerular Filt Rate > 60; Glucose Random 103 mg/dL (60-115); Potassium 4.5 mmol/l (3.3-5.1); Sodium 140 mmol/L (135-145)
[2020-09-25 08:00] VITALS: BP 111/84; PULSE 72; RESP 18; TEMP 36.1; O2SAT 100
[2020-09-25] MEDS: 0.9 % Sodium Chloride Flush 3 ML SYRINGE IVFLUSH ×3 (09:18→23:35)
[2020-09-25] MEDS: Tamsulosin HCL 0.4 MG CAPSULE PO (09:18)
[2020-09-25] MEDS: levoFLOXacin 250 MG TABLET PO (09:18)
[2020-09-25] MEDS: Baclofen 10 MG TABLET PO ×2 (09:19→19:38)
[2020-09-25] MEDS: Nicotine 14 MG PATCH.TD24 TRANSDERMA (09:19)
--- NOTE | 2020-09-25 09:55 | P.CDIC_ITS ---
CDI Concurrent Query Service Date: 09/25/20 Documentation Clarification: Please clarify if you are treating a proba ble/suspected/likely or confirmed: Urinary tract infection Urinary tract infection due to chronic fernando catheter Please specify if known Provider Response: Other Other Diagnosis: UTI on chronic fernando. PLEASE DO NOT DELETE/MODIFY EXISTING CONTENT Additional information is needed in order to code to the highest accuracy and appropriate Severity of Illness (SOI). Please clarify the information noted below in your progress notes and discharge summary. Risk Factors/Clinical Indicators/Treatments UTI - urine culture growing sensitive bacteria next Lyme continue Levaquin for 3 more days. History of UTI Chronic fernando catheter BPH CDS: Cami Michel CCS, CDIS Contact Number: [phone] Please Review the information above and exercise your independent professional judgment in responding to the query. If you concur, pleas document in the PROGRESS NOTES and DISCHARGE SUMMARY. If you do not agree with the query, please document in the query above. THIS QUERY IS PART OF THE PERMANENT MEDICAL RECORD
--- NOTE | 2020-09-25 10:25 | HO.PM.IMPN ---
Subjective Subjective Date of Service: 09/25/20 Interval History: the patient was seen and evaluated this morning Laying in bed, feels comfortable Denies any fever, chills or shortness of breath No reported other overnight events. Systemic review: No fever, chills or weakness No chest pain, palpitation No shortness of breath or coughing No abdominal pain, nausea or vomiting No urinary symptoms, Fernando in place No any rash or wounds Physical Exam Vital Signs: Vital Signs: Last Vital Signs Temp 97.0 F 09/25/20 08:00 Pulse 72 09/25/20 08:00 Resp 18 09/25/20 08:00 BP 111/84 09/25/20 08:00 Pulse Ox 100 09/25/20 08:00 Body Mass Index 20.1 Constitutional : Alert, oriented to self and place, not in distress Neck : Normal inspection, Supple Cardiovascular : RRR, S1 S2, no lower extremity edema Respiratory : Good bilateral air entry, no crackles, wheezes or rhonchi Gastrointestinal: soft, lax, Normal bowel sounds, Non tender Skin : Warm/Dry, No rash, fernando in place Neurological : Alert & oriented x3, No focal deficit Objective Data Current Medications Generic Name Dose Route Start Last Admin Trade Name Freq PRN Reason Stop Dose Admin Acetaminophen 650 mg 09/24/20 15:40 Acetaminophen 325 Mg Tablet PO Q6H PRN Pain, Mild (Pain Scale 1-3) Al Hydroxide/Mg Hydroxide 30 ml 09/24/20 15:40 Magnesium Hydrox/Alum Hydrox 30 Ml Oral.Susp PO Q4H PRN Heartburn/Nausea Baclofen 10 mg 09/22/20 10:30 09/25/20 09:19 Baclofen 10 Mg Tablet PO 10 mg BID BARBIE Administration Bisacodyl 10 mg 09/22/20 10:28 Bisacodyl 10 Mg Supp.Rect AK DAILY PRN Constipation Clotrimazole 1 appl 09/22/20 10:28 Clotrimazole 1 % Cream 15 Gm Tube TOPICAL TID PRN Rash Clozapine 400 mg 09/22/20 21:00 09/24/20 21:46 Clozapine 100 Mg Tablet PO 400 mg BEDTIME BARBIE Administration Enoxaparin Sodium 40 mg 09/24/20 18:00 09/24/20 17:33 Enoxaparin Sodium 40 Mg/0.4 Ml Syringe SUBCUT 40 mg Q24H BARBIE Administration Levofloxacin 250 mg 09/23/20 09:00 09/25/20 09:18 Levofloxacin 250 Mg Tablet PO 09/27/20 09:01 250 mg DAILY BARBIE Administration Magnesium Hydroxide 30 ml 09/22/20 10:28 Milk Of Magnesia 30 Ml Oral.Susp PO DAILY PRN Constipation Nicotine 14 mg 09/22/20 11:00 09/25/20 09:19 Nicotine 14 Mg Patch.Td24 TRANSDERMA 14 mg DAILY BARBIE Administration Ondansetron HCl 4 mg 09/24/20 15:40 Ondansetron Hcl 4 Mg/2 Ml Vial IVPUSH Q8H PRN Nausea and Vomiting Sodium Chloride 3 ml 09/24/20 16:00 09/25/20 09:18 0.9 % Sodium Chloride Flush 3 Ml Syringe IVFLUSH 3 ml QSHIFT BARBIE Administration Tamsulosin HCl 0.4 mg 09/22/20 10:30 09/25/20 09:18 Tamsulosin Hcl 0.4 Mg Capsule PO 0.4 mg DAILY BARBIE Administration Labs CBC & Chem 7: 09/25/20 06:30 09/25/20 06:30 Microbiology Microbiology Results: Microbiology 09/21/20 20:01 Urine clean catch - Clean Catch Midstream Urine Culture - Final Providencia rettgeri 09/21/20 19:47 Blood - Venous Blood Culture - Preliminary No growth after 48 hours. 09/21/20 19:47 Blood - Venous Blood Culture - Preliminary No growth after 48 hours. Assessment and Plan (1) Social problem: Status: Acute (2) Urinary tract infection: Status: Acute Assessment and Plan: a 65 years old male with PMH of psychiatric disorder under guardianship of his brother presents to the hospital from a facility for social issue. UTI Urine culture growing sensitive bacteria continue Levaquin for 2 more days Social problem Guardianship under his brother, brother in [place] at this point will come back on Thursday Looking for placement by CM Psychiatry problem Continue clozapine BPH continue tamsulosin On chronic Fernando at this point Supposed to follow up with Dr. Tucker in the office as outpatient DVT PPX Lovenox
[2020-09-25 11:57] VITALS: BP 107/78; PULSE 84; RESP 18; TEMP 36.2; O2SAT 99
--- NOTE | 2020-09-25 13:34 | MHC.CM.PN ---
Addendum entered by Summer Martin 09/25/20 14:55: Beto, brother and guardian out of the country until Thursday. Spoke to Beto's ex- about needing to contact him about the IMM, his brothers rights under Medicare. Will mail IMM to her emailing address, at [place], [address], [facility] [place]. [id number]. State mail is constantly stolen at [address] in [place]. IMM sent today 09/15 at 1500 by certified mail Original Note: Met with pt. Somewhat cooperative. Orientated to person and place. Has guardian, who is his brother, Beto ([phone]) who is out of the country and unreachable. [place] to [place]. Unable to complete IMM at this time.
[2020-09-25 16:00] VITALS: BP 106/73; PULSE 82; RESP 17; TEMP 36.3; O2SAT 99
[2020-09-25] MEDS: Enoxaparin Sodium 40 MG/0.4 ML SYRINGE SUBCUT (17:31)
[2020-09-25 19:39] VITALS: BP 100/68; PULSE 93; RESP 18; TEMP 36.1; O2SAT 98
[2020-09-25] MEDS: cloZAPine 100 MG TABLET 400 MG PO (19:39)
[2020-09-25 23:11] VITALS: BP 101/72; PULSE 99; RESP 19; TEMP 36.7; O2SAT 97
[2020-09-26 04:00] VITALS: BP 113/74; PULSE 83; RESP 19; TEMP 36.7; O2SAT 98
[2020-09-26] MEDS: Nicotine 14 MG PATCH.TD24 TRANSDERMA (07:53)
[2020-09-26] MEDS: Tamsulosin HCL 0.4 MG CAPSULE PO (07:54)
[2020-09-26] MEDS: Baclofen 10 MG TABLET PO ×2 (07:55→20:43)
[2020-09-26] MEDS: levoFLOXacin 250 MG TABLET PO (07:55)
[2020-09-26] MEDS: 0.9 % Sodium Chloride Flush 3 ML SYRINGE IVFLUSH ×3 (07:59→20:43)
[2020-09-26 08:00] VITALS: BP 126/83; PULSE 95; RESP 19; TEMP 36.6; O2SAT 97
[2020-09-26 11:51] VITALS: BP 118/76; PULSE 90; RESP 18; TEMP 36.8; O2SAT 99
--- NOTE | 2020-09-26 13:27 | HO.PM.IMPN ---
Subjective Subjective Date of Service: 09/26/20 Interval History: the patient was seen and evaluated this morning Laying in bed, feels comfortable Denies any fever, chills or shortness of breath No reported other overnight events. Systemic review: No fever, chills or weakness No chest pain, palpitation No shortness of breath or coughing No abdominal pain, nausea or vomiting No urinary symptoms, Madsen in place No any rash or wounds Physical Exam Vital Signs: Vital Signs: Last Vital Signs Temp 98.2 F 09/26/20 11:51 Pulse 90 09/26/20 11:51 Resp 18 09/26/20 11:51 BP 118/76 09/26/20 11:51 Pulse Ox 99 09/26/20 11:51 Body Mass Index 20.1 Constitutional : Alert, oriented to self and place, not in distress Neck : Normal inspection, Supple Cardiovascular : RRR, S1 S2, no lower extremity edema Respiratory : Good bilateral air entry, no crackles, wheezes or rhonchi Gastrointestinal: soft, lax, Normal bowel sounds, Non tender Skin : Warm/Dry, No rash Neurological : Alert & oriented to self, No focal deficit Objective Data Current Medications Generic Name Dose Route Start Last Admin Trade Name Freq PRN Reason Stop Dose Admin Acetaminophen 650 mg 09/24/20 15:40 Acetaminophen 325 Mg Tablet PO Q6H PRN Pain, Mild (Pain Scale 1-3) Al Hydroxide/Mg Hydroxide 30 ml 09/24/20 15:40 Magnesium Hydrox/Alum Hydrox 30 Ml Oral.Susp PO Q4H PRN Heartburn/Nausea Baclofen 10 mg 09/22/20 10:30 09/26/20 07:55 Baclofen 10 Mg Tablet PO 10 mg BID BARBIE Administration Bisacodyl 10 mg 09/22/20 10:28 Bisacodyl 10 Mg Supp.Rect SD DAILY PRN Constipation Clotrimazole 1 appl 09/22/20 10:28 Clotrimazole 1 % Cream 15 Gm Tube TOPICAL TID PRN Rash Clozapine 400 mg 09/22/20 21:00 09/25/20 19:39 Clozapine 100 Mg Tablet PO 400 mg BEDTIME BARBIE Administration Enoxaparin Sodium 40 mg 09/24/20 18:00 09/25/20 17:31 Enoxaparin Sodium 40 Mg/0.4 Ml Syringe SUBCUT 40 mg Q24H BARBIE Administration Levofloxacin 250 mg 09/23/20 09:00 09/26/20 07:55 Levofloxacin 250 Mg Tablet PO 09/27/20 09:01 250 mg DAILY BARBIE Administration Magnesium Hydroxide 30 ml 09/22/20 10:28 Milk Of Magnesia 30 Ml Oral.Susp PO DAILY PRN Constipation Nicotine 14 mg 09/22/20 11:00 09/26/20 07:53 Nicotine 14 Mg Patch.Td24 TRANSDERMA 14 mg DAILY BARBIE Administration Ondansetron HCl 4 mg 09/24/20 15:40 Ondansetron Hcl 4 Mg/2 Ml Vial IVPUSH Q8H PRN Nausea and Vomiting Sodium Chloride 3 ml 09/24/20 16:00 09/26/20 07:59 0.9 % Sodium Chloride Flush 3 Ml Syringe IVFLUSH 3 ml QSHIFT BARBIE Administration Tamsulosin HCl 0.4 mg 09/22/20 10:30 09/26/20 07:54 Tamsulosin Hcl 0.4 Mg Capsule PO 0.4 mg DAILY BARBIE Administration Labs CBC & Chem 7: 09/25/20 06:30 09/25/20 06:30 Microbiology Microbiology Results: Microbiology 09/21/20 20:01 Urine clean catch - Clean Catch Midstream Urine Culture - Final Providencia rettgeri 09/21/20 19:47 Blood - Venous Blood Culture - Preliminary No growth after 48 hours. 09/21/20 19:47 Blood - Venous Blood Culture - Preliminary No growth after 48 hours. Assessment and Plan (1) Social problem: Status: Acute (2) Urinary tract infection: Status: Acute Assessment and Plan: a 65 years old male with PMH of psychiatric disorder under guardianship of his brother presents to the hospital from a facility for social issue. UTI Urine culture growing sensitive bacteria continue Levaquin for 1 more day Social problem Guardianship under his brother, brother in [place] at this point will come back on Thursday Looking for placement by CM Psychiatry problem Continue clozapine BPH continue tamsulosin On chronic Madsen at this point Supposed to follow up with Dr. Tucker in the office as outpatient DVT PPX Lovenox
--- NOTE | 2020-09-26 13:52 | MHC.CM.PN ---
Pt continues as a social admission pending brotherBeto (guardian), [place] to [place] Thursday. Will need [facility] order for pt to return to SNF. Will follow for d/c needs
[2020-09-26 15:31] VITALS: BP 101/62; PULSE 78; RESP 18; TEMP 36.9; O2SAT 95
[2020-09-26] MEDS: Enoxaparin Sodium 40 MG/0.4 ML SYRINGE SUBCUT (17:28)
[2020-09-26 19:59] VITALS: BP 92/60; PULSE 83; RESP 17; TEMP 36.6; O2SAT 97
[2020-09-26] MEDS: cloZAPine 100 MG TABLET 400 MG PO (20:43)
[2020-09-26 23:24] VITALS: BP 107/77; PULSE 87; RESP 19; TEMP 36.7; O2SAT 97
[2020-09-27 03:31] VITALS: BP 113/65; PULSE 84; RESP 19; TEMP 37; O2SAT 94
[2020-09-27 08:00] VITALS: BP 97/83; PULSE 101; RESP 18; TEMP 36.5; O2SAT 100
[2020-09-27] MEDS: Baclofen 10 MG TABLET PO ×2 (08:22→19:58)
[2020-09-27] MEDS: Tamsulosin HCL 0.4 MG CAPSULE PO (08:22)
[2020-09-27] MEDS: levoFLOXacin 250 MG TABLET PO (08:23)
[2020-09-27] MEDS: Nicotine 14 MG PATCH.TD24 TRANSDERMA (08:23)
[2020-09-27] MEDS: 0.9 % Sodium Chloride Flush 3 ML SYRINGE IVFLUSH ×2 (08:25→15:58)
[2020-09-27 11:48] VITALS: BP 105/75; PULSE 92; RESP 16; TEMP 36.1; O2SAT 97
--- NOTE | 2020-09-27 12:02 | P.PNIM_ITS ---
Subjective Subjective Date of Service: 09/27/20 Interval History: the patient was seen and evaluated this morning Laying in bed, feels comfortable Denies any fever, chills or shortness of breath No reported other overnight events. Systemic review: No fever, chills or weakness No chest pain, palpitation No shortness of breath or coughing No abdominal pain, nausea or vomiting No urinary symptoms No any rash or wounds Physical Exam 2 Vital Signs: Vital Signs: Last Vital Signs Temp 96.9 F 09/27/20 11:48 Pulse 92 09/27/20 11:48 Resp 16 09/27/20 11:48 BP 105/75 09/27/20 11:48 Pulse Ox 97 09/27/20 11:48 Body Mass Index 20.1 Constitutional : Alert, oriented, not in distress Neck : Normal inspection, Supple Cardiovascular : RRR, S1 S2, no lower extremity edema Respiratory : Good bilateral air entry, no crackles, wheezes or rhonchi Gastrointestinal: soft, lax, Normal bowel sounds, Non tender Skin : Warm/Dry, No rash Neurological : Alert & oriented x3, No focal deficit Objective Data Current Medications Generic Name Dose Route Start Last Admin Trade Name Freq PRN Reason Stop Dose Admin Acetaminophen 650 mg 09/24/20 15:40 Acetaminophen 325 Mg Tablet PO Q6H PRN Pain, Mild (Pain Scale 1-3) Al Hydroxide/Mg Hydroxide 30 ml 09/24/20 15:40 Magnesium Hydrox/Alum Hydrox 30 Ml Oral.Susp PO Q4H PRN Heartburn/Nausea Baclofen 10 mg 09/22/20 10:30 09/27/20 08:22 Baclofen 10 Mg Tablet PO 10 mg BID BARBIE Administration Bisacodyl 10 mg 09/22/20 10:28 Bisacodyl 10 Mg Supp.Rect [place] DAILY PRN Constipation Clotrimazole 1 appl 09/22/20 10:28 Clotrimazole 1 % Cream 15 Gm Tube TOPICAL TID PRN Rash Clozapine 400 mg 09/22/20 21:00 09/26/20 20:43 Clozapine 100 Mg Tablet PO 400 mg BEDTIME BARBIE Administration Enoxaparin Sodium 40 mg 09/24/20 18:00 09/26/20 17:28 Enoxaparin Sodium 40 Mg/0.4 Ml Syringe SUBCUT 40 mg Q24H BARBIE Administration Magnesium Hydroxide 30 ml 11/21/20 10:28 Milk Of Magnesia 30 Ml Oral.Susp PO DAILY PRN Constipation Nicotine 14 mg 09/22/20 11:00 09/27/20 08:23 Nicotine 14 Mg Patch.Td24 TRANSDERMA 14 mg DAILY BARBIE Administration Ondansetron HCl 4 mg 09/24/20 15:40 Ondansetron Hcl 4 Mg/2 Ml Vial IVPUSH Q8H PRN Nausea and Vomiting Sodium Chloride 3 ml 09/24/20 16:00 09/27/20 08:25 0.9 % Sodium Chloride Flush 3 Ml Syringe IVFLUSH 3 ml QSHIFT BARBIE Administration Tamsulosin HCl 0.4 mg 09/22/20 10:30 09/27/20 08:22 Tamsulosin Hcl 0.4 Mg Capsule PO 0.4 mg DAILY BARBIE Administration Labs CBC & Chem 7: 09/25/20 06:30 09/25/20 06:30 Microbiology Microbiology Results: Microbiology 09/21/20 19:47 Blood - Venous Blood Culture - Final No growth after 5 days. 09/21/20 19:47 Blood - Venous Blood Culture - Final No growth after 5 days. 09/21/20 20:01 Urine clean catch - Clean Catch Midstream Urine Culture - Final Providencia rettgeri Assessment and Plan (1) Social problem: Status: Acute (2) Urinary tract infection: Status: Acute Assessment and Plan: a 65 years old male with PMH of psychiatric disorder under guardianship of his brother presents to the hospital from a facility for social issue. UTI Urine culture growing sensitive bacteria Continue Ceftin for 2 more days Social problem Guardianship under his brother, brother in [place] at this point will come back on Thursday Looking for placement by CM Psychiatry problem Continue clozapine BPH continue tamsulosin On chronic Madsen at this point Supposed to follow up with Dr. Tucker in the office as outpatient DVT PPX Lovenox
[2020-09-27 15:36] VITALS: BP 107/65; PULSE 95; RESP 18; TEMP 36.6; O2SAT 97
[2020-09-27] MEDS: Enoxaparin Sodium 40 MG/0.4 ML SYRINGE SUBCUT (19:57)
[2020-09-27] MEDS: cloZAPine 100 MG TABLET 400 MG PO (19:57)
[2020-09-27 20:00] VITALS: BP 97/63; PULSE 84; RESP 18; TEMP 36.5; O2SAT 97
[2020-09-27 23:36] VITALS: BP 104/65; PULSE 94; RESP 16; TEMP 36.6; O2SAT 97
[2020-09-28] MEDS: 0.9 % Sodium Chloride Flush 3 ML SYRINGE IVFLUSH ×3 (00:46→16:43)
[2020-09-28 04:00] VITALS: BP 98/64; PULSE 86; RESP 16; TEMP 36.2; O2SAT 95
[2020-09-28 07:28] VITALS: BP 113/80; PULSE 89; RESP 18; TEMP 36.1; O2SAT 98
[2020-09-28] MEDS: Baclofen 10 MG TABLET PO ×2 (08:03→20:25)
[2020-09-28] MEDS: Tamsulosin HCL 0.4 MG CAPSULE PO (08:04)
[2020-09-28] MEDS: Nicotine 14 MG PATCH.TD24 TRANSDERMA (08:04)
[2020-09-28 11:31] VITALS: BP 114/72; PULSE 90; RESP 18; TEMP 36.4; O2SAT 98
--- NOTE | 2020-09-28 11:50 | P.PNIM_ITS ---
Subjective Subjective Date of Service: 09/28/20 Interval History: the patient was seen and evaluated this morning Laying in bed, feels comfortable Denies any fever, chills or shortness of breath No reported other overnight events. Systemic review: No fever, chills or weakness No chest pain, palpitation No shortness of breath or coughing No abdominal pain, nausea or vomiting No urinary symptoms No any rash or wounds Physical Exam 2 Vital Signs: Vital Signs: Last Vital Signs Temp 97.6 F 09/28/20 11:31 Pulse 90 09/28/20 11:31 Resp 18 09/28/20 11:31 BP 114/72 09/28/20 11:31 Pulse Ox 98 09/28/20 11:31 Body Mass Index 20.1 Constitutional : Alert, oriented, not in distress Neck : Normal inspection, Supple Cardiovascular : RRR, S1 S2, no lower extremity edema Respiratory : Good bilateral air entry, no crackles, wheezes or rhonchi Gastrointestinal: soft, lax, Normal bowel sounds, Non tender Skin : Warm/Dry, No rash Urinary, Madsen catheter in place Neurological : Alert & oriented x3, No focal deficit Objective Data Current Medications Generic Name Dose Route Start Last Admin Trade Name Freq PRN Reason Stop Dose Admin Acetaminophen 650 mg 09/24/20 15:40 Acetaminophen 325 Mg Tablet PO Q6H PRN Pain, Mild (Pain Scale 1-3) Al Hydroxide/Mg Hydroxide 30 ml 09/24/20 15:40 Magnesium Hydrox/Alum Hydrox 30 Ml Oral.Susp PO Q4H PRN Heartburn/Nausea Baclofen 10 mg 09/22/20 10:30 09/28/20 08:03 Baclofen 10 Mg Tablet PO 10 mg BID BARBIE Administration Bisacodyl 10 mg 09/22/20 10:28 Bisacodyl 10 Mg Supp.Rect [place] DAILY PRN Constipation Cefuroxime Axetil 250 mg 09/27/20 13:00 09/28/20 00:47 Cefuroxime Axetil 250 Mg Tablet PO 09/29/20 12:59 250 mg Q12H BARBIE Administration Clotrimazole 1 appl 09/22/20 10:28 Clotrimazole 1 % Cream 15 Gm Tube TOPICAL TID PRN Rash Clozapine 400 mg 09/22/20 21:00 09/27/20 19:57 Clozapine 100 Mg Tablet PO 400 mg BEDTIME BARBIE Administration Enoxaparin Sodium 40 mg 09/24/20 18:00 09/27/20 19:57 Enoxaparin Sodium 40 Mg/0.4 Ml Syringe SUBCUT 40 mg Q24H BARBIE Administration Magnesium Hydroxide 30 ml 09/22/20 10:28 Milk Of Magnesia 30 Ml Oral.Susp PO DAILY PRN Constipation Nicotine 14 mg 09/22/20 11:00 09/28/20 08:04 Nicotine 14 Mg Patch.Td24 TRANSDERMA 14 mg DAILY BARBIE Administration Ondansetron HCl 4 mg 09/24/20 15:40 Ondansetron Hcl 4 Mg/2 Ml Vial IVPUSH Q8H PRN Nausea and Vomiting Sodium Chloride 3 ml 09/24/20 16:00 09/28/20 08:05 0.9 % Sodium Chloride Flush 3 Ml Syringe IVFLUSH 3 ml QSHIFT BARBIE Administration Tamsulosin HCl 0.4 mg 09/22/20 10:30 09/28/20 08:04 Tamsulosin Hcl 0.4 Mg Capsule PO 0.4 mg DAILY BARBIE Administration Labs CBC & Chem 7: 09/25/20 06:30 09/25/20 06:30 Microbiology Microbiology Results: Microbiology 09/21/20 19:47 Blood - Venous Blood Culture - Final No growth after 5 days. 09/21/20 19:47 Blood - Venous Blood Culture - Final No growth after 5 days. 09/21/20 20:01 Urine clean catch - Clean Catch Midstream Urine Culture - Final Providencia rettgeri Assessment and Plan (1) Social problem: Status: Acute (2) Urinary tract infection: Status: Acute Assessment and Plan: a 65 years old male with PMH of psychiatric disorder under guardianship of his brother presents to the hospital from a facility for social issue. UTI Urine culture growing sensitive bacteria Continue Ceftin for 1 more day Social problem Guardianship under his brother, brother in [place] at this point will come back today Looking for placement by CM Psychiatry problem Continue clozapine BPH continue tamsulosin On chronic Madsen at this point Supposed to follow up with Dr. Tucker in the office as outpatient DVT PPX Lovenox
--- NOTE | 2020-09-28 14:43 | MHC.CM.PN ---
No changes. Waiting HCP Beto(brother) return. WIll need [facility]. Spoke with Shanita. Here for weekend
[2020-09-28 15:59] VITALS: BP 113/72; PULSE 80; RESP 18; TEMP 36.3; O2SAT 97
[2020-09-28] MEDS: Enoxaparin Sodium 40 MG/0.4 ML SYRINGE SUBCUT (17:21)
[2020-09-28 19:21] VITALS: BP 98/51; PULSE 76; RESP 18; TEMP 36.5; O2SAT 97
[2020-09-28] MEDS: cloZAPine 100 MG TABLET 400 MG PO (20:25)
[2020-09-28 22:56] VITALS: BP 101/71; PULSE 87; RESP 19; TEMP 36.7; O2SAT 97
[2020-09-29] MEDS: 0.9 % Sodium Chloride Flush 3 ML SYRINGE IVFLUSH ×4 (00:55→21:15)
[2020-09-29 03:02] VITALS: BP 111/68; RESP 16; TEMP 36.1; O2SAT 96
[2020-09-29 07:33] VITALS: BP 122/74; PULSE 84; RESP 18; TEMP 36.3; O2SAT 99
[2020-09-29] MEDS: Baclofen 10 MG TABLET PO ×2 (08:45→21:14)
[2020-09-29] MEDS: Nicotine 14 MG PATCH.TD24 TRANSDERMA (08:45)
[2020-09-29] MEDS: Tamsulosin HCL 0.4 MG CAPSULE PO (08:45)
--- NOTE | 2020-09-29 11:04 | P.PNIM_ITS ---
Subjective Subjective Date of Service: 09/29/20 Interval History: the patient was seen and evaluated this morning Laying in bed, feels comfortable Denies any fever, chills or shortness of breath No reported other overnight events. Systemic review: No fever, chills or weakness No chest pain, palpitation No shortness of breath or coughing No abdominal pain, nausea or vomiting No urinary symptoms No any rash or wounds Physical Exam 2 Vital Signs: Vital Signs: Last Vital Signs Temp 97.3 F 09/29/20 07:33 Pulse 84 09/29/20 07:33 Resp 18 09/29/20 07:33 BP 122/74 09/29/20 07:33 Pulse Ox 99 09/29/20 07:33 Body Mass Index 20.1 Constitutional : Alert, oriented, not in distress Neck : Normal inspection, Supple Cardiovascular : RRR, S1 S2, no lower extremity edema Respiratory : Good bilateral air entry, no crackles, wheezes or rhonchi Gastrointestinal: soft, lax, Normal bowel sounds, Non tender Skin : Warm/Dry, No rash, fernando in place Neurological : Alert & oriented arlyn self and place, No focal deficit Objective Data Current Medications Generic Name Dose Route Start Last Admin Trade Name Freq PRN Reason Stop Dose Admin Acetaminophen 650 mg 09/24/20 15:40 Acetaminophen 325 Mg Tablet PO Q6H PRN Pain, Mild (Pain Scale 1-3) Al Hydroxide/Mg Hydroxide 30 ml 09/24/20 15:40 Magnesium Hydrox/Alum Hydrox 30 Ml Oral.Susp PO Q4H PRN Heartburn/Nausea Baclofen 10 mg 09/22/20 10:30 09/29/20 08:45 Baclofen 10 Mg Tablet PO 10 mg BID BARBIE Administration Bisacodyl 10 mg 09/22/20 10:28 Bisacodyl 10 Mg Supp.Rect [place] DAILY PRN Constipation Cefuroxime Axetil 250 mg 09/27/20 13:00 09/29/20 00:53 Cefuroxime Axetil 250 Mg Tablet PO 09/29/20 12:59 250 mg Q12H BARBIE Administration Clotrimazole 1 appl 09/22/20 10:28 Clotrimazole 1 % Cream 15 Gm Tube TOPICAL TID PRN Rash Clozapine 400 mg 09/22/20 21:00 09/28/20 20:25 Clozapine 100 Mg Tablet PO 400 mg BEDTIME BARBIE Administration Enoxaparin Sodium 40 mg 09/24/20 18:00 09/28/20 17:21 Enoxaparin Sodium 40 Mg/0.4 Ml Syringe SUBCUT 40 mg Q24H BARBIE Administration Magnesium Hydroxide 30 ml 09/22/20 10:28 Milk Of Magnesia 30 Ml Oral.Susp PO DAILY PRN Constipation Nicotine 14 mg 09/22/20 11:00 09/29/20 08:45 Nicotine 14 Mg Patch.Td24 TRANSDERMA 14 mg DAILY BARBIE Administration Ondansetron HCl 4 mg 09/24/20 15:40 Ondansetron Hcl 4 Mg/2 Ml Vial IVPUSH Q8H PRN Nausea and Vomiting Sodium Chloride 3 ml 09/24/20 16:00 09/29/20 00:55 0.9 % Sodium Chloride Flush 3 Ml Syringe IVFLUSH 3 ml QSHIFT BARBIE Administration Tamsulosin HCl 0.4 mg 09/22/20 10:30 09/29/20 08:45 Tamsulosin Hcl 0.4 Mg Capsule PO 0.4 mg DAILY BARBIE Administration Labs CBC & Chem 7: 09/25/20 06:30 09/25/20 06:30 Microbiology Microbiology Results: Microbiology 09/21/20 19:47 Blood - Venous Blood Culture - Final No growth after 5 days. 09/21/20 19:47 Blood - Venous Blood Culture - Final No growth after 5 days. 09/21/20 20:01 Urine clean catch - Clean Catch Midstream Urine Culture - Final Providencia rettgeri Assessment and Plan (1) Social problem: Status: Acute (2) Urinary tract infection: Status: Acute Assessment and Plan: a 65 years old male with PMH of psychiatric disorder under guardianship of his brother presents to the hospital from a facility for social issue. UTI Urine culture growing sensitive bacteria To finish 5 days tx with Abx Social problem Guardianship under his brother Looking for placement by Psychiatry problem Continue clozapine BPH continue tamsulosin On chronic Fernando at this point Supposed to follow up with Dr. Tucker in the office as outpatient DVT PPX Lovenox
[2020-09-29 11:41] VITALS: BP 110/72; PULSE 68; RESP 16; TEMP 36.5; O2SAT 97
[2020-09-29 15:19] VITALS: BP 117/74; PULSE 81; RESP 19; TEMP 36; O2SAT 98
[2020-09-29] MEDS: Enoxaparin Sodium 40 MG/0.4 ML SYRINGE SUBCUT (18:03)
[2020-09-29 19:36] VITALS: BP 122/72; PULSE 81; RESP 19; TEMP 36.9; O2SAT 97
[2020-09-29] MEDS: cloZAPine 100 MG TABLET 400 MG PO (21:14)
[2020-09-29 23:55] VITALS: BP 112/73; PULSE 82; RESP 20; TEMP 36.4; O2SAT 96
[2020-09-30 03:40] VITALS: BP 101/69; PULSE 83; RESP 18; TEMP 36.3; O2SAT 99
[2020-09-30 07:14] VITALS: BP 120/82; PULSE 96; RESP 18; TEMP 36.4; O2SAT 98
[2020-09-30] MEDS: Nicotine 14 MG PATCH.TD24 TRANSDERMA (08:14)
[2020-09-30] MEDS: Baclofen 10 MG TABLET PO ×2 (08:15→21:25)
[2020-09-30] MEDS: 0.9 % Sodium Chloride Flush 3 ML SYRINGE IVFLUSH ×3 (08:15→21:29)
[2020-09-30] MEDS: Tamsulosin HCL 0.4 MG CAPSULE PO (08:15)
--- NOTE | 2020-09-30 11:09 | P.PNIM_ITS ---
Subjective Subjective Date of Service: 09/30/20 Interval History: the patient was seen and evaluated this morning Laying in bed, feels comfortable Denies any fever, chills or shortness of breath No reported other overnight events. Systemic review: No fever, chills or weakness No chest pain, palpitation No shortness of breath or coughing No abdominal pain, nausea or vomiting No urinary symptoms No any rash or wounds Physical Exam 2 Vital Signs: Vital Signs: Last Vital Signs Temp 97.6 F 09/30/20 07:14 Pulse 96 09/30/20 07:14 Resp 18 09/30/20 07:14 BP 120/82 09/30/20 07:14 Pulse Ox 98 09/30/20 07:14 Body Mass Index 20.1 Constitutional : Alert, oriented to self and place, not in distress Neck : Normal inspection, Supple Cardiovascular : RRR, S1 S2, no lower extremity edema Respiratory : Good bilateral air entry, no crackles, wheezes or rhonchi Gastrointestinal: soft, lax, Normal bowel sounds, Non tender Skin : Warm/Dry, No rash Urine catheter in place, no hematuria Neurological : Alert & oriented to self and place, No focal deficit Objective Data Current Medications Generic Name Dose Route Start Last Admin Trade Name Freq PRN Reason Stop Dose Admin Acetaminophen 650 mg 09/24/20 15:40 Acetaminophen 325 Mg Tablet PO Q6H PRN Pain, Mild (Pain Scale 1-3) Al Hydroxide/Mg Hydroxide 30 ml 09/24/20 15:40 Magnesium Hydrox/Alum Hydrox 30 Ml Oral.Susp PO Q4H PRN Heartburn/Nausea Baclofen 10 mg 09/22/20 10:30 09/30/20 08:15 Baclofen 10 Mg Tablet PO 10 mg BID BARBIE Administration Bisacodyl 10 mg 09/22/20 10:28 Bisacodyl 10 Mg Supp.Rect [place] DAILY PRN Constipation Clotrimazole 1 appl 09/22/20 10:28 Clotrimazole 1 % Cream 15 Gm Tube TOPICAL TID PRN Rash Clozapine 400 mg 09/22/20 21:00 09/29/20 21:14 Clozapine 100 Mg Tablet PO 400 mg BEDTIME BARBIE Administration Enoxaparin Sodium 40 mg 09/24/20 18:00 09/29/20 18:03 Enoxaparin Sodium 40 Mg/0.4 Ml Syringe SUBCUT 40 mg Q24H BARBIE Administration Magnesium Hydroxide 30 ml 09/22/20 10:28 Milk Of Magnesia 30 Ml Oral.Susp PO DAILY PRN Constipation Nicotine 14 mg 09/22/20 11:00 09/30/20 08:14 Nicotine 14 Mg Patch.Td24 TRANSDERMA 14 mg DAILY BARBIE Administration Ondansetron HCl 4 mg 09/24/20 15:40 Ondansetron Hcl 4 Mg/2 Ml Vial IVPUSH Q8H PRN Nausea and Vomiting Sodium Chloride 3 ml 09/24/20 16:00 09/30/20 08:15 0.9 % Sodium Chloride Flush 3 Ml Syringe IVFLUSH 3 ml QSHIFT BARBIE Administration Tamsulosin HCl 0.4 mg 09/22/20 10:30 09/30/20 08:15 Tamsulosin Hcl 0.4 Mg Capsule PO 0.4 mg DAILY BARBIE Administration Labs CBC & Chem 7: 09/25/20 06:30 09/25/20 06:30 Microbiology Microbiology Results: Microbiology 09/21/20 19:47 Blood - Venous Blood Culture - Final No growth after 5 days. 09/21/20 19:47 Blood - Venous Blood Culture - Final No growth after 5 days. 09/21/20 20:01 Urine clean catch - Clean Catch Midstream Urine Culture - Final Providencia rettgeri Assessment and Plan (1) Social problem: Status: Acute (2) Urinary tract infection: Status: Acute Assessment and Plan: a 65 years old male with PMH of psychiatric disorder under guardianship of his brother presents to the hospital from a facility for social issue. UTI Urine culture growing sensitive bacteria finished 5 days tx with Abx Social problem Guardianship under his brother Looking for placement by Psychiatry problem Continue clozapine BPH On chronic Madsen at this point for history of for a urine retention continue tamsulosin Supposed to follow up with Dr. Tucker in the office as outpatient DVT PPX Lovenox
[2020-09-30 11:53] VITALS: BP 119/77; PULSE 74; RESP 18; TEMP 36; O2SAT 99
[2020-09-30 15:22] VITALS: BP 109/66; PULSE 88; RESP 18; TEMP 36.6; O2SAT 98
[2020-09-30] MEDS: Enoxaparin Sodium 40 MG/0.4 ML SYRINGE SUBCUT (18:02)
[2020-09-30 19:22] VITALS: BP 107/69; PULSE 89; RESP 19; TEMP 36.9; O2SAT 98
[2020-09-30] MEDS: cloZAPine 100 MG TABLET 400 MG PO (21:25)
[2020-09-30 23:15] VITALS: BP 110/59; PULSE 66; RESP 18; TEMP 37; O2SAT 98
[2020-10-01 04:00] VITALS: BP 110/58; PULSE 88; RESP 20; TEMP 37.1; O2SAT 98
[2020-10-01 08:00] VITALS: BP 120/79; PULSE 86; RESP 20; TEMP 36.1; O2SAT 99
[2020-10-01] MEDS: Nicotine 14 MG PATCH.TD24 TRANSDERMA (08:17)
[2020-10-01] MEDS: Baclofen 10 MG TABLET PO ×2 (08:18→20:04)
[2020-10-01] MEDS: 0.9 % Sodium Chloride Flush 3 ML SYRINGE IVFLUSH ×3 (08:18→20:07)
[2020-10-01] MEDS: Tamsulosin HCL 0.4 MG CAPSULE PO (08:18)
[2020-10-01 08:39] LABS: Neut%MD 67.5 %; Neutrophils Absolute Auto 6.3 X10*3/uL (2.0-8.3); WBCANC 9.4 X10*3/uL
--- NOTE | 2020-10-01 11:26 | HO.PM.IMPN ---
Subjective Subjective Date of Service: 10/01/20 Interval History: patient seen and examined at bedside denies any complaint Systemic review: No fever, chills or weakness No chest pain, palpitation No shortness of breath or coughing No abdominal pain, nausea or vomiting No urinary symptoms No any rash or wounds Review of Systems No fever, chills or weakness No chest pain, palpitation No shortness of breath or coughing No abdominal pain, nausea or vomiting chronic Madsen's catheter No any rash or wounds Physical Exam Vital Signs: Vital Signs: Last Vital Signs Temp 96.9 F 10/01/20 08:00 Pulse 86 10/01/20 08:00 Resp 20 10/01/20 08:00 BP 120/79 10/01/20 08:00 Pulse Ox 99 10/01/20 08:00 Body Mass Index 20.1 Objective Data Current Medications Generic Name Dose Route Start Last Admin Trade Name Freq PRN Reason Stop Dose Admin Acetaminophen 650 mg 09/24/20 15:40 Acetaminophen 325 Mg Tablet PO Q6H PRN Pain, Mild (Pain Scale 1-3) Al Hydroxide/Mg Hydroxide 30 ml 09/24/20 15:40 Magnesium Hydrox/Alum Hydrox 30 Ml Oral.Susp PO Q4H PRN Heartburn/Nausea Baclofen 10 mg 09/22/20 10:30 10/01/20 08:18 Baclofen 10 Mg Tablet PO 10 mg BID BARBIE Administration Bisacodyl 10 mg 09/22/20 10:28 Bisacodyl 10 Mg Supp.Rect [place] DAILY PRN Constipation Clotrimazole 1 appl 09/22/20 10:28 Clotrimazole 1 % Cream 15 Gm Tube TOPICAL TID PRN Rash Clozapine 400 mg 09/22/20 21:00 09/30/20 21:25 Clozapine 100 Mg Tablet PO 400 mg BEDTIME BARBIE Administration Enoxaparin Sodium 40 mg 09/24/20 18:00 09/30/20 18:02 Enoxaparin Sodium 40 Mg/0.4 Ml Syringe SUBCUT 40 mg Q24H BARBIE Administration Magnesium Hydroxide 30 ml 09/22/20 10:28 Milk Of Magnesia 30 Ml Oral.Susp PO DAILY PRN Constipation Nicotine 14 mg 09/22/20 11:00 10/01/20 08:17 Nicotine 14 Mg Patch.Td24 TRANSDERMA 14 mg DAILY BARBIE Administration Ondansetron HCl 4 mg 09/24/20 15:40 Ondansetron Hcl 4 Mg/2 Ml Vial IVPUSH Q8H PRN Nausea and Vomiting Sodium Chloride 3 ml 09/24/20 16:00 10/01/20 08:18 0.9 % Sodium Chloride Flush 3 Ml Syringe IVFLUSH 3 ml QSHIFT BARBIE Administration Tamsulosin HCl 0.4 mg 09/22/20 10:30 10/01/20 08:18 Tamsulosin Hcl 0.4 Mg Capsule PO 0.4 mg DAILY BARBIE Administration Labs CBC & Chem 7: 09/25/20 06:30 09/25/20 06:30 Microbiology Microbiology Results: Microbiology 09/21/20 19:47 Blood - Venous Blood Culture - Final No growth after 5 days. 09/21/20 19:47 Blood - Venous Blood Culture - Final No growth after 5 days. 09/21/20 20:01 Urine clean catch - Clean Catch Midstream Urine Culture - Final Providencia rettgeri Assessment and Plan (1) Social problem: Status: Acute (2) Urinary tract infection: Status: Acute Assessment and Plan: a 65 years old male with PMH of psychiatric disorder under guardianship of his brother presents to the hospital from a facility for social issue. UTI Urine culture growing sensitive bacteria finished 5 days tx with Abx Social problem Guardianship under his brother cm working on placement Psychiatry problem Continue clozapine BPH On chronic Madsen continue tamsulosin follow up with Dr. Tucker in the office as outpatient DVT PPX Lovenox awaiting placement
[2020-10-01 11:59] VITALS: BP 109/68; PULSE 98; RESP 20; TEMP 36.4; O2SAT 99
--- NOTE | 2020-10-01 14:00 | MHC.CM.PN ---
Spoke with Beto(brother and guardian [phone]). Reviewed with him his brother's recent hospitalization to [facility], the need for a [facility] order, so he takes his medicines at the longterm, and if pt can go back home with him. Beto tells CM that if his brother is mentally and physically okay, he could possible come back home with him. Has not made any concrete decision regarding this. Above reported to Paulina Robertson. Spoke with Dr. Steven. Will order PT eval to reassess need for SNF.
--- NOTE | 2020-10-01 14:05 | MHC.CM.PN ---
Brother, Beto, aware that [facility] in the process of petitioning for a [facility] order and that Pt cannot go to a SNF without one. Paulina Robertson aware of this conversation. Told Beto that CM would call him tomorrow to discuss d/c plans
[2020-10-01 15:16] VITALS: BP 108/84; PULSE 93; RESP 18; TEMP 36.1; O2SAT 100
--- NOTE | 2020-10-01 16:05 | P.CNPS_ITS ---
History of Present Illness Date of Service: 10/01/2020 Chief Complaint: social Reason for Consult: Request for Mikel's Guardianship. Pt has a guardian in place, brother, Beto Summers [phone]. Requesting physician: Haider Steven Discussed with referring provider: Yes Sources of Information: patient interviewed (brief introduction per team request) and chart reviewed Additional Sources of Information: Brother/Guardian Herve [phone]. Message left at [phone] Dr. Diaz, [facility] [phone]. Message left at [phone]. HPI Narrative: 65 yo male, hx of PTSD with psychosis after many years of service and Schizophrenia, followed by [facility] Dr. Diaz. Pt has a guardian in place, his brother, Herve and was recently at [facility], however, had no Mikel's Guardianship in place to allow him to continue longstanding treatment with antipsychotic medication (Clozapine 400 mg HS), which has been stabilizing for him. Past Psychiatric History: Guardian reports a 30+ year history of illness Dr. Diaz reports half-way stabilization with Clozapine. Medical Evaluation Reviewed: Yes Personal & Social History: , long history of mental illness Review of Systems Psychiatric: Reports other (lying in bed, calm, asking about discharge today.) [facility] Medical History Hernia Poor historian Post traumatic stress disorder (PTSD) Psychosis Diagnostics Vital Signs (24Hr): Vital Signs - 24 hr 09/30/20 19:22 09/30/20 23:15 10/01/20 04:00 Temperature 98.5 F 98.6 F 98.7 F Pulse Rate 89 66 88 Respiratory Rate 19 18 20 Blood Pressure 107/69 110/59 L 110/58 L Pulse Oximetry 98 98 98 10/01/20 08:00 10/01/20 11:59 10/01/20 15:16 Temperature 96.9 F 97.6 F 96.9 F Pulse Rate 86 98 93 Respiratory Rate 20 20 18 Blood Pressure 120/79 109/68 108/84 Pulse Oximetry 99 99 100 Body Mass Index 20.1 Labs Results: 09/25/20 06:30 09/25/20 06:30 Labs: Laboratory Results - last 48 hr 10/01/20 08:11 Absolute Neuts (auto) 6.3 Imaging Radiology Impressions: ITS Impressions Chest X-Ray 09/21/20 19:20 IMPRESSION: Unremarkable examination. Mental Status Exam Mental Status Exam Patient Appearance: Well Grooomed and Appropriate Patient Orientation: Person and Place Level of Consciousness: Awake and Alert Patient Behavior: Appropriate and Talkative Mood Description: Calm Affect Description: Calm Patient Cognition Impaired: Yes Ability to Follow Directions: Fair Speech Pattern: Clear, Impoverished, Appropriate and Spontaneous Speech Memory Description: Immediate Impaired Hallucinations: None (no evidence of acute sx.) Delusions: Not Present (no evidence of current sx.) Thought Process: Distracted Thought Content: positive for [place] and positive for Circumstantial Judgement: Poor (Guardian in place) Medications Medications Current Medications Generic Name Dose Route Start Last Admin Trade Name Freq PRN Reason Stop Dose Admin Acetaminophen 650 mg 09/24/20 15:40 Acetaminophen 325 Mg Tablet PO Q6H PRN Pain, Mild (Pain Scale 1-3) Al Hydroxide/Mg Hydroxide 30 ml 09/24/20 15:40 Magnesium Hydrox/Alum Hydrox 30 Ml Oral.Susp PO Q4H PRN Heartburn/Nausea Baclofen 10 mg 09/22/20 10:30 10/01/20 08:18 Baclofen 10 Mg Tablet PO 10 mg BID BARBIE Administration Bisacodyl 10 mg 09/22/20 10:28 Bisacodyl 10 Mg Supp.Rect [place] DAILY PRN Constipation Clotrimazole 1 appl 09/22/20 10:28 Clotrimazole 1 % Cream 15 Gm Tube TOPICAL TID PRN Rash Clozapine 400 mg 09/22/20 21:00 09/30/20 21:25 Clozapine 100 Mg Tablet PO 400 mg BEDTIME BARBIE Administration Enoxaparin Sodium 40 mg 09/24/20 18:00 09/30/20 18:02 Enoxaparin Sodium 40 Mg/0.4 Ml Syringe SUBCUT 40 mg Q24H BARBIE Administration Magnesium Hydroxide 30 ml 09/22/20 10:28 Milk Of Magnesia 30 Ml Oral.Susp PO DAILY PRN Constipation Nicotine 14 mg 09/22/20 11:00 10/01/20 08:17 Nicotine 14 Mg Patch.Td24 TRANSDERMA 14 mg DAILY BARBIE Administration Ondansetron HCl 4 mg 09/24/20 15:40 Ondansetron Hcl 4 Mg/2 Ml Vial IVPUSH Q8H PRN Nausea and Vomiting Sodium Chloride 3 ml 09/24/20 16:00 10/01/20 15:30 0.9 % Sodium Chloride Flush 3 Ml Syringe IVFLUSH 3 ml QSHIFT BARBIE Administration Tamsulosin HCl 0.4 mg 09/22/20 10:30 10/01/20 08:18 Tamsulosin Hcl 0.4 Mg Capsule PO 0.4 mg DAILY BARBIE Administration Allergies Allergies Allergy/AdvReac Type Severity Reaction Status Date / Time No Known Allergies Allergy Verified 08/22/20 10:43 Assessment & Plan Assessment & Plan (1) Schizophrenia: Status: Acute Code(s): F20.9 - Schizophrenia, unspecified Recommendations: -Care discussed with pt's guardian, brother, Beto Summers [phone] who concurs with Mikel's petition. Beto gave history of pt's stabilization and ability to be in community when taking medicine along with his long history of mental illness. - Care discussed with out patient psychiatrist, Dr. Diaz who reports lobsterman stabilization with Clozapine. Stable dosage usually at 200 mg/ day. He suggests we initiate a gradual dosage reduction. We discussed medication alternatives for Mikel's petition-Risperdal and Seroquel were decided upon. Discussed pt's UTI/BPH and gait issues-he hopes with ongoing GDR gait will improve, however it does not appear it has been a side effect of Clozapine for this pt. - Suggest Clozapine decrease to 350 mg daily. Greater than 50% of the session was spent on counseling and/or coordination of care Informed Consent: does not understand
--- NOTE | 2020-10-01 16:07 | MHC.CM.PN ---
Carol XIE from psych here to evaluate pt for Mikel's order. Spoke with Paulina Robertson
[2020-10-01] MEDS: Enoxaparin Sodium 40 MG/0.4 ML SYRINGE SUBCUT (17:44)
[2020-10-01 19:40] VITALS: BP 102/67; PULSE 78; RESP 19; TEMP 36.3; O2SAT 96
[2020-10-01] MEDS: cloZAPine 100 MG TABLET 400 MG PO (20:04)
[2020-10-01 23:49] VITALS: BP 102/77; PULSE 78; RESP 20; TEMP 36.9; O2SAT 98
[2020-10-02] VITALS (7 sets, daily range): BP systolic 104–131; BP diastolic 63–86; PULSE 74–93; RESP 16–19; TEMP 36.2–36.7; O2SAT 96–99
[2020-10-02] MEDS: Nicotine 14 MG PATCH.TD24 TRANSDERMA (08:08)
[2020-10-02] MEDS: Tamsulosin HCL 0.4 MG CAPSULE PO (08:08)
[2020-10-02] MEDS: Baclofen 10 MG TABLET PO ×2 (08:08→20:05)
[2020-10-02] MEDS: 0.9 % Sodium Chloride Flush 3 ML SYRINGE IVFLUSH ×3 (08:10→20:06)
--- NOTE | 2020-10-02 13:44 | MHC.CM.PN ---
Mikel's Order has been submitted to [facility]. Awaiting court date @ this time.
--- NOTE | 2020-10-02 13:44 | MHC.CM.ED ---
Spoke with Beto ([phone]) and gave him an update on his brothers condition, including recent PT evaluation that recommends STR vs home PT. Made brother aware that [facility] will accept patient back with Mikel's order in place. Brother aware that this may take weeks and that he can call for updates whenever he wants. Gave him CM telephone number. Will touch base with Beto on Thursday. Pt remains cooperative with staff. Offers no complaints. D/C plan is to [facility] when [facility] complete.
--- NOTE | 2020-10-02 14:29 | HO.PM.IMPN ---
Subjective Subjective Date of Service: 10/02/20 Interval History: Patient seen and examined at bedside Denies any complaint Review of Systems No fever, chills or weakness No chest pain, palpitation No shortness of breath or coughing No abdominal pain, nausea or vomiting chronic Madsen's catheter No any rash or wounds Physical Exam Vital Signs: Vital Signs: Last Vital Signs Temp 98.0 F 10/02/20 11:28 Pulse 90 10/02/20 11:28 Resp 19 10/02/20 11:28 BP 104/68 10/02/20 11:28 Pulse Ox 99 10/02/20 11:28 Body Mass Index 20.1 Const: General: no acute distress Resp: Effort & Inspection: normal respiratory effort Cardio: Jugular venous distension: no JVD Rhythm: regular rhythm Objective Data Current Medications Generic Name Dose Route Start Last Admin Trade Name Freq PRN Reason Stop Dose Admin Acetaminophen 650 mg 09/24/20 15:40 Acetaminophen 325 Mg Tablet PO Q6H PRN Pain, Mild (Pain Scale 1-3) Al Hydroxide/Mg Hydroxide 30 ml 09/24/20 15:40 Magnesium Hydrox/Alum Hydrox 30 Ml Oral.Susp PO Q4H PRN Heartburn/Nausea Baclofen 10 mg 09/22/20 10:30 10/02/20 08:08 Baclofen 10 Mg Tablet PO 10 mg BID BARBIE Administration Bisacodyl 10 mg 09/22/20 10:28 Bisacodyl 10 Mg Supp.Rect [place] DAILY PRN Constipation Clotrimazole 1 appl 09/22/20 10:28 Clotrimazole 1 % Cream 15 Gm Tube TOPICAL TID PRN Rash Clozapine 400 mg 09/22/20 21:00 10/01/20 20:04 Clozapine 100 Mg Tablet PO 400 mg BEDTIME BARBIE Administration Enoxaparin Sodium 40 mg 09/24/20 18:00 10/01/20 17:44 Enoxaparin Sodium 40 Mg/0.4 Ml Syringe SUBCUT 40 mg Q24H BARBIE Administration Magnesium Hydroxide 30 ml 09/22/20 10:28 Milk Of Magnesia 30 Ml Oral.Susp PO DAILY PRN Constipation Nicotine 14 mg 09/22/20 11:00 10/02/20 08:08 Nicotine 14 Mg Patch.Td24 TRANSDERMA 14 mg DAILY BARBIE Administration Ondansetron HCl 4 mg 09/24/20 15:40 Ondansetron Hcl 4 Mg/2 Ml Vial IVPUSH Q8H PRN Nausea and Vomiting Sodium Chloride 3 ml 09/24/20 16:00 10/02/20 08:10 0.9 % Sodium Chloride Flush 3 Ml Syringe IVFLUSH 3 ml QSHIFT BARBIE Administration Tamsulosin HCl 0.4 mg 09/22/20 10:30 10/02/20 08:08 Tamsulosin Hcl 0.4 Mg Capsule PO 0.4 mg DAILY BARBIE Administration Labs CBC & Chem 7: 09/25/20 06:30 09/25/20 06:30 Microbiology Microbiology Results: Microbiology 09/21/20 19:47 Blood - Venous Blood Culture - Final No growth after 5 days. 09/21/20 19:47 Blood - Venous Blood Culture - Final No growth after 5 days. 09/21/20 20:01 Urine clean catch - Clean Catch Midstream Urine Culture - Final Providencia rettgeri Assessment and Plan (1) Social problem: Status: Acute (2) Urinary tract infection: Status: Acute Assessment and Plan: 65 years old male with PMH of psychiatric disorder under guardianship of his brother presents to the hospital from a facility for social issue. UTI Urine culture growing sensitive bacteria finished 5 days tx with Abx Social problem Guardianship under his brother cm working on placement h/o psych disorder Continue clozapine BPH On chronic Madsen continue tamsulosin follow up with Dr. Tucker in the office as outpatient DVT PPX Lovenox awaiting placement
[2020-10-02] MEDS: Enoxaparin Sodium 40 MG/0.4 ML SYRINGE SUBCUT (17:58)
[2020-10-02] MEDS: cloZAPine 100 MG TABLET 400 MG PO (20:05)
[2020-10-03 03:40] VITALS: BP 109/74; PULSE 80; RESP 16; TEMP 35.8; O2SAT 98
[2020-10-03 07:44] VITALS: BP 133/82; PULSE 85; RESP 18; TEMP 36.1; O2SAT 98
[2020-10-03] MEDS: Tamsulosin HCL 0.4 MG CAPSULE PO (08:21)
[2020-10-03] MEDS: Baclofen 10 MG TABLET PO ×2 (08:21→20:35)
[2020-10-03] MEDS: Nicotine 14 MG PATCH.TD24 TRANSDERMA (08:21)
[2020-10-03] MEDS: 0.9 % Sodium Chloride Flush 3 ML SYRINGE IVFLUSH ×3 (08:22→23:24)
[2020-10-03 11:23] VITALS: BP 128/65; PULSE 98; RESP 18; TEMP 36.5; O2SAT 100
--- NOTE | 2020-10-03 14:23 | HO.PM.IMPN ---
Subjective Subjective Date of Service: 10/03/20 Interval History: Patient seen and examined at bedside Denies any complaint Review of Systems No fever, chills or weakness No chest pain, palpitation No shortness of breath or coughing No abdominal pain, nausea or vomiting chronic Madsen's catheter No any rash or wounds Physical Exam Vital Signs: Vital Signs: Last Vital Signs Temp 97.7 F 10/03/20 11:23 Pulse 98 10/03/20 11:23 Resp 18 10/03/20 11:23 BP 128/65 10/03/20 11:23 Pulse Ox 100 10/03/20 11:23 Body Mass Index 20.1 Const: General: no acute distress Resp: Effort & Inspection: normal respiratory effort Cardio: Jugular venous distension: no JVD Rhythm: regular rhythm Objective Data Current Medications Generic Name Dose Route Start Last Admin Trade Name Freq PRN Reason Stop Dose Admin Acetaminophen 650 mg 09/24/20 15:40 Acetaminophen 325 Mg Tablet PO Q6H PRN Pain, Mild (Pain Scale 1-3) Al Hydroxide/Mg Hydroxide 30 ml 09/24/20 15:40 Magnesium Hydrox/Alum Hydrox 30 Ml Oral.Susp PO Q4H PRN Heartburn/Nausea Baclofen 10 mg 09/22/20 10:30 10/03/20 08:21 Baclofen 10 Mg Tablet PO 10 mg BID BARBIE Administration Bisacodyl 10 mg 09/22/20 10:28 Bisacodyl [address] DAILY PRN Constipation Clotrimazole 1 appl 09/22/20 10:28 Clotrimazole 1 % Cream 15 Gm Tube TOPICAL TID PRN Rash Clozapine 400 mg 09/22/20 21:00 10/02/20 20:05 Clozapine 100 Mg Tablet PO 400 mg BEDTIME BARBIE Administration Enoxaparin Sodium 40 mg 09/24/20 18:00 10/02/20 17:58 Enoxaparin Sodium 40 Mg/0.4 Ml Syringe SUBCUT 40 mg Q24H BARBIE Administration Magnesium Hydroxide 30 ml 09/22/20 10:28 Milk Of Magnesia 30 Ml Oral.Susp PO DAILY PRN Constipation Nicotine 14 mg 09/22/20 11:00 10/03/20 08:21 Nicotine 14 Mg Patch.Td24 TRANSDERMA 14 mg DAILY BARBIE Administration Ondansetron HCl 4 mg 09/24/20 15:40 Ondansetron Hcl 4 Mg/2 Ml Vial IVPUSH Q8H PRN Nausea and Vomiting Sodium Chloride 3 ml 09/24/20 16:00 10/03/20 08:22 0.9 % Sodium Chloride Flush 3 Ml Syringe IVFLUSH 3 ml QSHIFT BARBIE Administration Tamsulosin HCl 0.4 mg 09/22/20 10:30 10/03/20 08:21 Tamsulosin Hcl 0.4 Mg Capsule PO 0.4 mg DAILY BARBIE Administration Labs CBC & Chem 7: 09/25/20 06:30 09/25/20 06:30 Microbiology Microbiology Results: Microbiology 09/21/20 19:47 Blood - Venous Blood Culture - Final No growth after 5 days. 09/21/20 19:47 Blood - Venous Blood Culture - Final No growth after 5 days. 09/21/20 20:01 Urine clean catch - Clean Catch Midstream Urine Culture - Final Providencia rettgeri Assessment and Plan (1) Social problem: Status: Acute (2) Urinary tract infection: Status: Acute Assessment and Plan: 65 years old male with PMH of psychiatric disorder under guardianship of his brother presents to the hospital from a facility for social issue. UTI Urine culture growing sensitive bacteria finished 5 days tx with Abx Social problem Guardianship under his brother cm working on placement h/o psych disorder Continue clozapine BPH On chronic Madsen continue tamsulosin follow up with Dr. Tucker in the office as outpatient DVT PPX Lovenox awaiting placement awaiting bond order from court
--- NOTE | 2020-10-03 14:47 | MHC.CM.PN ---
Per MD rounds, waiting for court date for [place] order. Pt remains cooperative
[2020-10-03 15:33] VITALS: BP 122/76; PULSE 83; RESP 18; TEMP 36.4; O2SAT 99
[2020-10-03] MEDS: Enoxaparin Sodium 40 MG/0.4 ML SYRINGE SUBCUT (18:30)
[2020-10-03 19:59] VITALS: BP 106/87; PULSE 93; RESP 18; TEMP 36.6; O2SAT 98
[2020-10-03] MEDS: cloZAPine 100 MG TABLET 400 MG PO (20:35)
[2020-10-03 23:11] VITALS: BP 111/73; PULSE 83; RESP 16; TEMP 36.1; O2SAT 98
[2020-10-04 04:00] VITALS: BP 116/69; PULSE 71; RESP 16; TEMP 35.9; O2SAT 97
[2020-10-04 07:25] VITALS: BP 121/83; PULSE 85; RESP 18; TEMP 36.2; O2SAT 98
[2020-10-04] MEDS: Nicotine 14 MG PATCH.TD24 TRANSDERMA (08:05)
[2020-10-04] MEDS: Baclofen 10 MG TABLET PO ×2 (08:06→20:45)
[2020-10-04] MEDS: 0.9 % Sodium Chloride Flush 3 ML SYRINGE IVFLUSH ×2 (08:06→15:46)
[2020-10-04] MEDS: Tamsulosin HCL 0.4 MG CAPSULE PO (08:06)
[2020-10-04 08:25] LABS: MANUAL DIFF FLAG NO
[2020-10-04 08:26] LABS: Basophils Percent Auto 0.3 % (0-2); Eosinophils Absolute Auto 0.2 X10*3/uL (0.0-0.4); Eosinophils Percent Auto 2.3 % (0-4); Hemoglobin 13.5 g/dl (14.0-18.0); Imm Gran Abs Auto 0.03 X10*3/uL (0.00-0.03); Imm Gran Pct Auto 0.3 % (0.0-0.4); Lymphocytes Absolute Auto 1.7 X10*3/uL (1.2-4.9); Lymphocytes Percent Auto 16.3 % (20-40); Mean Corpuscular HGB Conc 32.1 g/dl (31.0-36.0); Mean Corpuscular Hemoglobin 31.5 pg (27.0-33.0); Mean Corpuscular Volume 97.9 fL (80-98); Mean Platelet Volume 8.8 fL (9.4-12.4); Monocytes Absolute Auto 0.7 X10*3/uL (0.1-1.2); Monocytes Percent Auto 6.8 % (2-11); Neutrophils Absolute Auto 7.5 X10*3/uL (2.0-8.3); Platelet Count 362 X10*3/uL (160-400); Red Blood Count 4.29 X10*6/uL (4.60-5.80); Red Cell Distribution Width 14.3 % (11.0-16.0); White Blood Count 10.2 X10*3/uL (4.8-10.8)
[2020-10-04 08:53] LABS: Anion Gap 10 (12-20); Blood Urea Nitrogen 25 mg/dL (9-16); Carbon Dioxide 29 mmol/L (22-29); Chloride 104 mmol/L (96-108); Estimated Glomerular Filt Rate > 60; Glucose Random 103 mg/dL (60-115); Potassium 4.4 mmol/l (3.3-5.1); Sodium 139 mmol/L (135-145)
[2020-10-04 11:27] VITALS: BP 104/72; PULSE 83; RESP 18; TEMP 36.4; O2SAT 99
--- NOTE | 2020-10-04 11:48 | HO.PM.IMPN ---
Subjective Subjective Date of Service: 10/04/20 Interval History: Patient seen and examined at bedside Denies any complaint Review of Systems No fever, chills or weakness No chest pain, palpitation No shortness of breath or coughing No abdominal pain, nausea or vomiting chronic Madsen's catheter No any rash or wounds Physical Exam Vital Signs: Vital Signs: Last Vital Signs Temp 97.6 F 10/04/20 11:27 Pulse 83 10/04/20 11:27 Resp 18 10/04/20 11:27 BP 104/72 10/04/20 11:27 Pulse Ox 99 10/04/20 11:27 Body Mass Index 20.1 Const: General: no acute distress Resp: Effort & Inspection: normal respiratory effort Cardio: Jugular venous distension: no JVD Rhythm: regular rhythm Objective Data Current Medications Generic Name Dose Route Start Last Admin Trade Name Freq PRN Reason Stop Dose Admin Acetaminophen 650 mg 09/24/20 15:40 Acetaminophen 325 Mg Tablet PO Q6H PRN Pain, Mild (Pain Scale 1-3) Al Hydroxide/Mg Hydroxide 30 ml 09/24/20 15:40 Magnesium Hydrox/Alum Hydrox 30 Ml Oral.Susp PO Q4H PRN Heartburn/Nausea Baclofen 10 mg 09/22/20 10:30 10/04/20 08:06 Baclofen 10 Mg Tablet PO 10 mg BID BARBIE Administration Bisacodyl 10 mg 09/22/20 10:28 Bisacodyl 10 Mg Supp.Rect [place] DAILY PRN Constipation Clotrimazole 1 appl 09/22/20 10:28 Clotrimazole 1 % Cream 15 Gm Tube TOPICAL TID PRN Rash Clozapine 400 mg 09/22/20 21:00 10/03/20 20:35 Clozapine 100 Mg Tablet PO 400 mg BEDTIME BARBIE Administration Enoxaparin Sodium 40 mg 09/24/20 18:00 10/03/20 18:30 Enoxaparin Sodium 40 Mg/0.4 Ml Syringe SUBCUT 40 mg Q24H BARBIE Administration Magnesium Hydroxide 30 ml 09/22/20 10:28 Milk Of Magnesia 30 Ml Oral.Susp PO DAILY PRN Constipation Nicotine 14 mg 09/22/20 11:00 10/04/20 08:05 Nicotine 14 Mg Patch.Td24 TRANSDERMA 14 mg DAILY BARBIE Administration Ondansetron HCl 4 mg 09/24/20 15:40 Ondansetron Hcl 4 Mg/2 Ml Vial IVPUSH Q8H PRN Nausea and Vomiting Sodium Chloride 3 ml 09/24/20 16:00 10/04/20 08:06 0.9 % Sodium Chloride Flush 3 Ml Syringe IVFLUSH 3 ml QSHIFT BARBIE Administration Tamsulosin HCl 0.4 mg 09/22/20 10:30 10/04/20 08:06 Tamsulosin Hcl 0.4 Mg Capsule PO 0.4 mg DAILY BARBIE Administration Labs CBC & Chem 7: 10/04/20 08:03 10/04/20 08:03 Microbiology Microbiology Results: Microbiology 09/21/20 19:47 Blood - Venous Blood Culture - Final No growth after 5 days. 09/21/20 19:47 Blood - Venous Blood Culture - Final No growth after 5 days. 09/21/20 20:01 Urine clean catch - Clean Catch Midstream Urine Culture - Final Providencia rettgeri Assessment and Plan (1) Social problem: Status: Acute (2) Urinary tract infection: Status: Acute Assessment and Plan: 65 years old male with PMH of psychiatric disorder under guardianship of his brother presents to the hospital from a facility for social issue. UTI Urine culture growing sensitive bacteria finished 5 days tx with Abx Social problem Guardianship under his brother cm working on placement h/o psych disorder Continue clozapine BPH On chronic Madsen continue tamsulosin follow up with Dr. Tucker in the office as outpatient DVT PPX Lovenox awaiting placement awaiting varun order from court hearing on thursday
[2020-10-04 15:27] VITALS: BP 105/72; PULSE 86; RESP 18; TEMP 36.3; O2SAT 99
--- NOTE | 2020-10-04 15:35 | MHC.CM.PN ---
Stable and cooperative.. Social hospitalization. Awaiting court date for Mikel's Order. Has bed at [facility]
[2020-10-04 19:45] VITALS: BP 116/84; PULSE 115; RESP 18; TEMP 36.7; O2SAT 100
[2020-10-04 20:45] VITALS: BP 105/78; PULSE 101; RESP 18; TEMP 36.7; O2SAT 99
[2020-10-04] MEDS: cloZAPine 100 MG TABLET 400 MG PO (20:45)
[2020-10-04] MEDS: Enoxaparin Sodium 40 MG/0.4 ML SYRINGE SUBCUT (20:45)
--- NOTE | 2020-10-04 20:45 | PC.NURSE ---
2030 PRICE CLERK notified this RN that pt had a fall in his room. Report that pt was transferring from recliner to bed using his walker and 1 assist. Aid states that pt's legs gave out and pt was assisted to his knees, and then into bed. Pt denies injury. Denies MITCHELL, dizziness, lightheadedness, CP, SOB, N/V. Peripheral pulses are intact. Capillary refill <2 secs. Bilateral knees have no redness or deformities. Pt laying comfortably in bed. Meat Clerk and covering Hospitalist notified. VS 105/78, HR 101, RR 18, 99%RA 98.1F. High fall precautions in place. Continue to monitor
[2020-10-05] VITALS (7 sets, daily range): BP systolic 109–127; BP diastolic 68–80; PULSE 85–102; RESP 14–18; TEMP 36–36.8; O2SAT 97–99
[2020-10-05] MEDS: 0.9 % Sodium Chloride Flush 3 ML SYRINGE IVFLUSH ×4 (01:14→23:11)
[2020-10-05] MEDS: Nicotine 14 MG PATCH.TD24 TRANSDERMA (07:55)
[2020-10-05] MEDS: Baclofen 10 MG TABLET PO ×2 (07:55→19:35)
[2020-10-05] MEDS: Tamsulosin HCL 0.4 MG CAPSULE PO (07:55)
--- NOTE | 2020-10-05 09:47 | MHC.CM.PN ---
Hearing to expand guardianship scheduled for 10/11/2020 at 10 AM. Atty. Renaldo Morgan has been appointed by the court to represent Richard Zaragozaer.
--- NOTE | 2020-10-05 14:06 | MHC.CM.PN ---
Addendum entered by Summer Martin 10/05/20 15:38: [facility] agreeable to pt returning to facility with [facility] Order Original Note: CM gave Hair his legal documents regarding hearing date. Hearing for [facility] order scheduled for 10/11/2020 at 10:00am. Renaldo Morgan will represent pt. Pt feels well and offers no complaints
--- NOTE | 2020-10-05 15:54 | HO.PM.IMPN ---
Subjective Subjective Date of Service: 10/05/20 Interval History: Patient seen and examined at bedside Denies any complaint Review of Systems No fever, chills or weakness No chest pain, palpitation No shortness of breath or coughing No abdominal pain, nausea or vomiting chronic Madsen's catheter No any rash or wounds Physical Exam Vital Signs: Vital Signs: Last Vital Signs Temp 97.4 F 10/05/20 11:44 Pulse 85 10/05/20 11:44 Resp 18 10/05/20 11:44 BP 109/73 10/05/20 11:44 Pulse Ox 98 10/05/20 11:44 Body Mass Index 20.1 Const: General: no acute distress Resp: Effort & Inspection: normal respiratory effort Cardio: Jugular venous distension: no JVD Rhythm: regular rhythm GI: Inspection: Yes normal to inspection Objective Data Current Medications Generic Name Dose Route Start Last Admin Trade Name Freq PRN Reason Stop Dose Admin Acetaminophen 650 mg 09/24/20 15:40 Acetaminophen 325 Mg Tablet PO Q6H PRN Pain, Mild (Pain Scale 1-3) Al Hydroxide/Mg Hydroxide 30 ml 09/24/20 15:40 Magnesium Hydrox/Alum Hydrox 30 Ml Oral.Susp PO Q4H PRN Heartburn/Nausea Baclofen 10 mg 09/22/20 10:30 10/05/20 07:55 Baclofen 10 Mg Tablet PO 10 mg BID BARBIE Administration Bisacodyl 10 mg 09/22/20 10:28 Bisacodyl 10 Mg Supp.Rect [place] DAILY PRN Constipation Clotrimazole 1 appl 09/22/20 10:28 Clotrimazole 1 % Cream 15 Gm Tube TOPICAL TID PRN Rash Clozapine 400 mg 09/22/20 21:00 10/04/20 20:45 Clozapine 100 Mg Tablet PO 400 mg BEDTIME BARBIE Administration Enoxaparin Sodium 40 mg 09/24/20 18:00 10/04/20 20:45 Enoxaparin Sodium 40 Mg/0.4 Ml Syringe SUBCUT 40 mg Q24H BARBIE Administration Magnesium Hydroxide 30 ml 09/22/20 10:28 Milk Of Magnesia 30 Ml Oral.Susp PO DAILY PRN Constipation Nicotine 14 mg 09/22/20 11:00 10/05/20 07:55 Nicotine 14 Mg Patch.Td24 TRANSDERMA 14 mg DAILY BARBIE Administration Ondansetron HCl 4 mg 09/24/20 15:40 Ondansetron Hcl 4 Mg/2 Ml Vial IVPUSH Q8H PRN Nausea and Vomiting Sodium Chloride 3 ml 09/24/20 16:00 10/05/20 07:55 0.9 % Sodium Chloride Flush 3 Ml Syringe IVFLUSH 3 ml QSHIFT BARBIE Administration Tamsulosin HCl 0.4 mg 09/22/20 10:30 10/05/20 07:55 Tamsulosin Hcl 0.4 Mg Capsule PO 0.4 mg DAILY BARBIE Administration Labs CBC & Chem 7: 10/04/20 08:03 10/04/20 08:03 Microbiology Microbiology Results: Microbiology 09/21/20 19:47 Blood - Venous Blood Culture - Final No growth after 5 days. 09/21/20 19:47 Blood - Venous Blood Culture - Final No growth after 5 days. 09/21/20 20:01 Urine clean catch - Clean Catch Midstream Urine Culture - Final Providencia rettgeri Assessment and Plan (1) Social problem: Status: Acute (2) Urinary tract infection: Status: Acute Assessment and Plan: 65 years old male with PMH of psychiatric disorder under guardianship of his brother presents to the hospital from a facility for social issue. UTI Urine culture growing sensitive bacteria finished 5 days tx with Abx Social problem Guardianship under his brother cm working on placement H/o psych disorder Continue clozapine BPH On chronic Madsen continue tamsulosin follow up with Dr. Tucker in the office as outpatient DVT PPX Lovenox Awaiting placement awaiting bond order from court hearing on 10/11/20
[2020-10-05] MEDS: Enoxaparin Sodium 40 MG/0.4 ML SYRINGE SUBCUT (18:10)
[2020-10-05] MEDS: cloZAPine 100 MG TABLET 400 MG PO (19:36)
[2020-10-06 03:54] VITALS: BP 125/78; PULSE 79; RESP 16; TEMP 36.1; O2SAT 95
[2020-10-06] MEDS: Nicotine 14 MG PATCH.TD24 TRANSDERMA (07:56)
[2020-10-06] MEDS: Tamsulosin HCL 0.4 MG CAPSULE PO (07:56)
[2020-10-06] MEDS: 0.9 % Sodium Chloride Flush 3 ML SYRINGE IVFLUSH ×3 (07:56→23:08)
[2020-10-06] MEDS: Baclofen 10 MG TABLET PO ×2 (07:56→20:35)
[2020-10-06 08:00] VITALS: BP 127/78; PULSE 96; RESP 17; TEMP 36.6; O2SAT 96
--- NOTE | 2020-10-06 11:19 | HO.PM.IMPN ---
Subjective Subjective Date of Service: 10/06/20 Interval History: Patient seen and examined at bedside Denies any complaint Review of Systems No fever, chills or weakness No chest pain, palpitation No shortness of breath or coughing No abdominal pain, nausea or vomiting chronic Madsen's catheter No any rash or wounds Physical Exam Vital Signs: Vital Signs: Last Vital Signs Temp 97.9 F 10/06/20 08:00 Pulse 96 10/06/20 08:00 Resp 17 10/06/20 08:00 BP 127/78 10/06/20 08:00 Pulse Ox 96 10/06/20 08:00 Body Mass Index 20.1 Const: General: no acute distress Resp: Effort & Inspection: normal respiratory effort Cardio: Jugular venous distension: no JVD Rhythm: regular rhythm GI: Inspection: Yes normal to inspection Objective Data Current Medications Generic Name Dose Route Start Last Admin Trade Name Freq PRN Reason Stop Dose Admin Acetaminophen 650 mg 09/24/20 15:40 Acetaminophen 325 Mg Tablet PO Q6H PRN Pain, Mild (Pain Scale 1-3) Al Hydroxide/Mg Hydroxide 30 ml 09/24/20 15:40 Magnesium Hydrox/Alum Hydrox 30 Ml Oral.Susp PO Q4H PRN Heartburn/Nausea Baclofen 10 mg 09/22/20 10:30 10/06/20 07:56 Baclofen 10 Mg Tablet PO 10 mg BID BARBIE Administration Bisacodyl 10 mg 09/22/20 10:28 Bisacodyl 10 Mg Supp.Rect [place] DAILY PRN Constipation Clotrimazole 1 appl 09/22/20 10:28 Clotrimazole 1 % Cream 15 Gm Tube TOPICAL TID PRN Rash Clozapine 400 mg 09/22/20 21:00 10/05/20 19:36 Clozapine 100 Mg Tablet PO 400 mg BEDTIME BARBIE Administration Enoxaparin Sodium 40 mg 09/24/20 18:00 10/05/20 18:10 Enoxaparin Sodium 40 Mg/0.4 Ml Syringe SUBCUT 40 mg Q24H BARBIE Administration Magnesium Hydroxide 30 ml 09/22/20 10:28 Milk Of Magnesia 30 Ml Oral.Susp PO DAILY PRN Constipation Nicotine 14 mg 09/22/20 11:00 10/06/20 07:56 Nicotine 14 Mg Patch.Td24 TRANSDERMA 14 mg DAILY BARBIE Administration Ondansetron HCl 4 mg 09/24/20 15:40 Ondansetron Hcl 4 Mg/2 Ml Vial IVPUSH Q8H PRN Nausea and Vomiting Sodium Chloride 3 ml 09/24/20 16:00 10/06/20 07:56 0.9 % Sodium Chloride Flush 3 Ml Syringe IVFLUSH 3 ml QSHIFT BARBIE Administration Tamsulosin HCl 0.4 mg 09/22/20 10:30 10/06/20 07:56 Tamsulosin Hcl 0.4 Mg Capsule PO 0.4 mg DAILY BARBIE Administration Labs CBC & Chem 7: 10/04/20 08:03 10/04/20 08:03 Microbiology Microbiology Results: Microbiology 09/21/20 19:47 Blood - Venous Blood Culture - Final No growth after 5 days. 09/21/20 19:47 Blood - Venous Blood Culture - Final No growth after 5 days. 09/21/20 20:01 Urine clean catch - Clean Catch Midstream Urine Culture - Final Providencia rettgeri Assessment and Plan (1) Social problem: Status: Acute (2) Urinary tract infection: Status: Acute Assessment and Plan: 65 years old male with PMH of psychiatric disorder under guardianship of his brother presents to the hospital from a facility for social issue. UTI Urine culture growing sensitive bacteria finished 5 days tx with Abx Social problem Guardianship under his brother cm working on placement H/o psych disorder Continue clozapine BPH On chronic Madsen continue tamsulosin follow up with Dr. Tucker in the office as outpatient DVT PPX Lovenox Awaiting placement awaiting bond order from court hearing on 10/11/20
[2020-10-06 11:34] VITALS: BP 117/81; PULSE 102; RESP 16; TEMP 36.4; O2SAT 99
[2020-10-06 15:38] VITALS: BP 127/82; PULSE 98; RESP 18; TEMP 36.9; O2SAT 96
[2020-10-06] MEDS: Enoxaparin Sodium 40 MG/0.4 ML SYRINGE SUBCUT (17:46)
[2020-10-06 20:00] VITALS: BP 119/76; PULSE 96; RESP 18; TEMP 36.8; O2SAT 97
[2020-10-06] MEDS: cloZAPine 100 MG TABLET 400 MG PO (20:34)
[2020-10-06 23:21] VITALS: BP 101/70; PULSE 102; RESP 16; TEMP 36.2; O2SAT 95
[2020-10-07 03:44] VITALS: BP 101/76; PULSE 86; RESP 16; TEMP 36.1; O2SAT 96
[2020-10-07 07:27] VITALS: BP 118/81; PULSE 100; RESP 19; TEMP 36.6; O2SAT 97
[2020-10-07] MEDS: Baclofen 10 MG TABLET PO ×2 (09:11→21:32)
[2020-10-07] MEDS: Tamsulosin HCL 0.4 MG CAPSULE PO (09:11)
[2020-10-07] MEDS: 0.9 % Sodium Chloride Flush 3 ML SYRINGE IVFLUSH ×3 (09:11→21:32)
[2020-10-07] MEDS: Nicotine 14 MG PATCH.TD24 TRANSDERMA (09:11)
[2020-10-07 11:34] VITALS: BP 103/81; PULSE 98; RESP 19; TEMP 36.8; O2SAT 99
--- NOTE | 2020-10-07 12:15 | HO.PM.IMPN ---
Subjective Subjective Date of Service: 10/07/20 Interval History: no new events; awaiting [place] guardianship hearing 10/11/20 no fever/chills no nausea/vomiting no abd pain Physical Exam Vital Signs: Vital Signs: Last Vital Signs Temp 98.2 F 10/07/20 11:34 Pulse 98 10/07/20 11:34 Resp 19 10/07/20 11:34 BP 103/81 10/07/20 11:34 Pulse Ox 99 10/07/20 11:34 Body Mass Index 20.1 Const: General: cooperative; No acute distress Resp: Effort & Inspection: normal respiratory effort : Other: Madsen in place Objective Data Current Medications Generic Name Dose Route Start Last Admin Trade Name Freq PRN Reason Stop Dose Admin Acetaminophen 650 mg 09/24/20 15:40 Acetaminophen 325 Mg Tablet PO Q6H PRN Pain, Mild (Pain Scale 1-3) Al Hydroxide/Mg Hydroxide 30 ml 09/24/20 15:40 Magnesium Hydrox/Alum Hydrox 30 Ml Oral.Susp PO Q4H PRN Heartburn/Nausea Baclofen 10 mg 09/22/20 10:30 10/07/20 09:11 Baclofen 10 Mg Tablet PO 10 mg BID BARBIE Administration Bisacodyl 10 mg 09/22/20 10:28 Bisacodyl 10 Mg Supp.Rect ID DAILY PRN Constipation Clotrimazole 1 appl 09/22/20 10:28 Clotrimazole 1 % Cream 15 Gm Tube TOPICAL TID PRN Rash Clozapine 400 mg 09/22/20 21:00 10/06/20 20:34 Clozapine 100 Mg Tablet PO 400 mg BEDTIME BARBIE Administration Enoxaparin Sodium 40 mg 09/24/20 18:00 10/06/20 17:46 Enoxaparin Sodium 40 Mg/0.4 Ml Syringe SUBCUT 40 mg Q24H BARBIE Administration Magnesium Hydroxide 30 ml 09/22/20 10:28 Milk Of Magnesia 30 Ml Oral.Susp PO DAILY PRN Constipation Nicotine 14 mg 09/22/20 11:00 10/07/20 09:11 Nicotine 14 Mg Patch.Td24 TRANSDERMA 14 mg DAILY BARBIE Administration Ondansetron HCl 4 mg 09/24/20 15:40 Ondansetron Hcl 4 Mg/2 Ml Vial IVPUSH Q8H PRN Nausea and Vomiting Sodium Chloride 3 ml 09/24/20 16:00 10/07/20 09:11 0.9 % Sodium Chloride Flush 3 Ml Syringe IVFLUSH 3 ml QSHIFT BARBIE Administration Tamsulosin HCl 0.4 mg 09/22/20 10:30 10/07/20 09:11 Tamsulosin Hcl 0.4 Mg Capsule PO 0.4 mg DAILY BARBIE Administration Labs CBC & Chem 7: 10/04/20 08:03 10/04/20 08:03 Microbiology Microbiology Results: Microbiology 09/21/20 19:47 Blood - Venous Blood Culture - Final No growth after 5 days. 09/21/20 19:47 Blood - Venous Blood Culture - Final No growth after 5 days. 09/21/20 20:01 Urine clean catch - Clean Catch Midstream Urine Culture - Final Providencia rettgeri Assessment and Plan (1) Social problem: Status: Acute (2) Urinary tract infection: Status: Acute Assessment and Plan: hospital day #14 65yo M resident of SNF with schizophrenia on clozapine admitted for social issue (had no [place] guardianship to allow ongoing use of longstanding antipsychotic) # UTI - treated with 5d of ceftriaxone -> cefuroxime for Providencia rettgeri # schizophrenia - continue clozapine # BPH with chronic prostatism - continue tamsulosin, Madsen, Urology outpt follow-up # social problem - [place] guardianship hearing 10/11/20 followed by SNF placement # tobacco abuse - NRT # VTE ppx - LMWH
[2020-10-07 16:00] VITALS: BP 122/76; PULSE 97; RESP 18; TEMP 36.8; O2SAT 99
[2020-10-07] MEDS: Enoxaparin Sodium 40 MG/0.4 ML SYRINGE SUBCUT (17:46)
[2020-10-07 20:00] VITALS: BP 111/72; PULSE 71; RESP 18; TEMP 36.7; O2SAT 96
[2020-10-07] MEDS: cloZAPine 100 MG TABLET 400 MG PO (21:32)
[2020-10-08] VITALS (7 sets, daily range): BP systolic 99–143; BP diastolic 65–85; PULSE 90–106; RESP 14–20; TEMP 36.2–36.7; O2SAT 94–98
[2020-10-08 06:46] LABS: Neut%MD 72.4 %; Neutrophils Absolute Auto 7.3 X10*3/uL (2.0-8.3); WBCANC 10.1 X10*3/uL
[2020-10-08] MEDS: Tamsulosin HCL 0.4 MG CAPSULE PO (10:20)
[2020-10-08] MEDS: Baclofen 10 MG TABLET PO ×2 (10:21→20:27)
[2020-10-08] MEDS: Nicotine 14 MG PATCH.TD24 TRANSDERMA (10:21)
[2020-10-08] MEDS: 0.9 % Sodium Chloride Flush 3 ML SYRINGE IVFLUSH ×3 (10:21→23:57)
--- NOTE | 2020-10-08 12:45 | HO.PM.IMPN ---
Subjective Subjective Date of Service: 10/08/20 Interval History: no new events awaiting guardianship hearing 10/11/20 Physical Exam Vital Signs: Vital Signs: Last Vital Signs Temp 98.1 F 10/08/20 11:37 Pulse 90 10/08/20 11:37 Resp 18 10/08/20 11:37 BP 99/68 10/08/20 11:37 Pulse Ox 97 10/08/20 11:37 Body Mass Index 20.1 Const: General: cooperative; No acute distress Resp: Effort & Inspection: normal respiratory effort : Other: Madsen in place Objective Data Current Medications Generic Name Dose Route Start Last Admin Trade Name Freq PRN Reason Stop Dose Admin Acetaminophen 650 mg 09/24/20 15:40 Acetaminophen 325 Mg Tablet PO Q6H PRN Pain, Mild (Pain Scale 1-3) Al Hydroxide/Mg Hydroxide 30 ml 09/24/20 15:40 Magnesium Hydrox/Alum Hydrox 30 Ml Oral.Susp PO Q4H PRN Heartburn/Nausea Baclofen 10 mg 09/22/20 10:30 10/08/20 10:21 Baclofen 10 Mg Tablet PO 10 mg BID BARBIE Administration Bisacodyl 10 mg 09/22/20 10:28 Bisacodyl 10 Mg Supp.Rect [place] DAILY PRN Constipation Clotrimazole 1 appl 09/22/20 10:28 Clotrimazole 1 % Cream 15 Gm Tube TOPICAL TID PRN Rash Clozapine 400 mg 09/22/20 21:00 10/07/20 21:32 Clozapine 100 Mg Tablet PO 400 mg BEDTIME BARBIE Administration Enoxaparin Sodium 40 mg 09/24/20 18:00 10/07/20 17:46 Enoxaparin Sodium 40 Mg/0.4 Ml Syringe SUBCUT 40 mg Q24H BARBIE Administration Magnesium Hydroxide 30 ml 09/22/20 10:28 Milk Of Magnesia 30 Ml Oral.Susp PO DAILY PRN Constipation Nicotine 14 mg 09/22/20 11:00 10/08/20 10:21 Nicotine 14 Mg Patch.Td24 TRANSDERMA 14 mg DAILY BARBIE Administration Ondansetron HCl 4 mg 09/24/20 15:40 Ondansetron Hcl 4 Mg/2 Ml Vial IVPUSH Q8H PRN Nausea and Vomiting Sodium Chloride 3 ml 09/24/20 16:00 10/08/20 10:21 0.9 % Sodium Chloride Flush 3 Ml Syringe IVFLUSH 3 ml QSHIFT BARBIE Administration Labs CBC & Chem 7: 10/04/20 08:03 10/04/20 08:03 Microbiology Microbiology Results: Microbiology 09/21/20 19:47 Blood - Venous Blood Culture - Final No growth after 5 days. 09/21/20 19:47 Blood - Venous Blood Culture - Final No growth after 5 days. 09/21/20 20:01 Urine clean catch - Clean Catch Midstream Urine Culture - Final Providencia rettgeri Assessment and Plan (1) Social problem: Status: Acute (2) Urinary tract infection: Status: Acute Assessment and Plan: hospital day #15 65yo M resident of SNF with schizophrenia on clozapine admitted for social issue (had no [place] guardianship to allow ongoing use of longstanding antipsychotic) # UTI, resolved - treated with 5d of ceftriaxone -> cefuroxime for Providencia rettgeri # schizophrenia - continue clozapine # BPH with chronic prostatism - continue tamsulosin - has chronic Madsen - Urology outpt follow-up # social problem - [place] guardianship hearing 10/11/20 followed by SNF placement # tobacco abuse - NRT # VTE ppx - LMWH
[2020-10-08] MEDS: Enoxaparin Sodium 40 MG/0.4 ML SYRINGE SUBCUT (18:27)
[2020-10-08] MEDS: cloZAPine 100 MG TABLET 400 MG PO (20:27)
[2020-10-09 03:49] VITALS: BP 122/82; PULSE 92; RESP 18; TEMP 36; O2SAT 97
[2020-10-09 07:40] VITALS: BP 122/85; PULSE 96; RESP 18; TEMP 36.3; O2SAT 97
[2020-10-09] MEDS: Nicotine 14 MG PATCH.TD24 TRANSDERMA (07:41)
[2020-10-09] MEDS: 0.9 % Sodium Chloride Flush 3 ML SYRINGE IVFLUSH (07:41)
[2020-10-09] MEDS: Baclofen 10 MG TABLET PO ×2 (07:42→20:06)
--- NOTE | 2020-10-09 11:04 | HO.PM.IMPN ---
Subjective Subjective Date of Service: 10/09/20 Interval History: no new events no fever/chills/nausea/vomiting/abd pain Physical Exam Vital Signs: Vital Signs: Last Vital Signs Temp 97.4 F 10/09/20 07:40 Pulse 96 10/09/20 07:40 Resp 18 10/09/20 07:40 BP 122/85 10/09/20 07:40 Pulse Ox 97 10/09/20 07:40 Body Mass Index 20.1 Const: General: cooperative; No acute distress Resp: Effort & Inspection: normal respiratory effort : Other: Madsen in place Objective Data Current Medications Generic Name Dose Route Start Last Admin Trade Name Freq PRN Reason Stop Dose Admin Acetaminophen 650 mg 09/24/20 15:40 Acetaminophen 325 Mg Tablet PO Q6H PRN Pain, Mild (Pain Scale 1-3) Al Hydroxide/Mg Hydroxide 30 ml 09/24/20 15:40 Magnesium Hydrox/Alum Hydrox 30 Ml Oral.Susp PO Q4H PRN Heartburn/Nausea Baclofen 10 mg 09/22/20 10:30 10/09/20 07:42 Baclofen 10 Mg Tablet PO 10 mg BID BARBIE Administration Bisacodyl 10 mg 09/22/20 10:28 Bisacodyl 10 Mg Supp.Rect UT DAILY PRN Constipation Clotrimazole 1 appl 09/22/20 10:28 Clotrimazole 1 % Cream 15 Gm Tube TOPICAL TID PRN Rash Clozapine 400 mg 09/22/20 21:00 10/08/20 20:27 Clozapine 100 Mg Tablet PO 400 mg BEDTIME BARBIE Administration Enoxaparin Sodium 40 mg 09/24/20 18:00 10/08/20 18:27 Enoxaparin Sodium 40 Mg/0.4 Ml Syringe SUBCUT 40 mg Q24H BARBIE Administration Magnesium Hydroxide 30 ml 09/22/20 10:28 Milk Of Magnesia 30 Ml Oral.Susp PO DAILY PRN Constipation Nicotine 14 mg 09/22/20 11:00 10/09/20 07:41 Nicotine 14 Mg Patch.Td24 TRANSDERMA 14 mg DAILY BARBIE Administration Ondansetron HCl 4 mg 09/24/20 15:40 Ondansetron Hcl 4 Mg/2 Ml Vial IVPUSH Q8H PRN Nausea and Vomiting Sodium Chloride 3 ml 09/24/20 16:00 10/09/20 07:41 0.9 % Sodium Chloride Flush 3 Ml Syringe IVFLUSH 3 ml QSHIFT BARBIE Administration Labs CBC & Chem 7: 10/04/20 08:03 10/04/20 08:03 Microbiology Microbiology Results: Microbiology 09/21/20 19:47 Blood - Venous Blood Culture - Final No growth after 5 days. 09/21/20 19:47 Blood - Venous Blood Culture - Final No growth after 5 days. 09/21/20 20:01 Urine clean catch - Clean Catch Midstream Urine Culture - Final Providencia rettgeri Assessment and Plan (1) Social problem: Status: Acute (2) Urinary tract infection: Status: Acute Assessment and Plan: hospital day #16 65yo M resident of SNF with schizophrenia on clozapine admitted for social issue (had no [place] guardianship to allow ongoing use of longstanding antipsychotic) # UTI, resolved - treated with 5d of ceftriaxone -> cefuroxime for Providencia rettgeri # schizophrenia - continue clozapine # BPH with chronic prostatism - continue tamsulosin - has chronic Madsen - Urology outpt follow-up # social problem - [place] guardianship hearing 10/11/20 followed by SNF placement # tobacco abuse - NRT # VTE ppx - LMWH
[2020-10-09 11:40] VITALS: BP 109/73; PULSE 94; RESP 18; TEMP 36.6; O2SAT 97
--- NOTE | 2020-10-09 13:40 | PC.NURSE ---
IV removed , md aware , states we do not need to put a new one in at this time
[2020-10-09 15:08] VITALS: BP 122/83; PULSE 92; RESP 18; TEMP 36.4; O2SAT 98
[2020-10-09] MEDS: Enoxaparin Sodium 40 MG/0.4 ML SYRINGE SUBCUT (17:33)
[2020-10-09 19:34] VITALS: BP 109/76; PULSE 66; RESP 18; TEMP 37; O2SAT 97
[2020-10-09] MEDS: cloZAPine 100 MG TABLET 400 MG PO (20:06)
[2020-10-09 23:50] VITALS: BP 121/82; PULSE 90; RESP 16; TEMP 36.5; O2SAT 95
[2020-10-10 04:00] VITALS: RESP 16
[2020-10-10 07:45] VITALS: BP 113/93; PULSE 94; RESP 18; TEMP 36.6; O2SAT 99
[2020-10-10] MEDS: Baclofen 10 MG TABLET PO ×2 (08:17→20:08)
[2020-10-10] MEDS: Nicotine 14 MG PATCH.TD24 TRANSDERMA (08:17)
--- NOTE | 2020-10-10 11:40 | MHC.CM.PN ---
Jm Diaz updated in allsdripts. [place] hearing scheduled for tomorrow @ 10:00. Case management following for return to facility.
--- NOTE | 2020-10-10 12:15 | P.PNIM_ITS ---
Subjective Subjective Date of Service: 10/10/20 Interval History: no new events Physical Exam Vital Signs: Vital Signs: Last Vital Signs Temp 97.9 F 10/10/20 07:45 Pulse 94 10/10/20 07:45 Resp 18 10/10/20 07:45 BP 113/93 H 10/10/20 07:45 Pulse Ox 99 10/10/20 07:45 Body Mass Index 20.1 Const: General: cooperative; No acute distress Resp: Effort & Inspection: normal respiratory effort : Other: Madsen in place Objective Data Current Medications Generic Name Dose Route Start Last Admin Trade Name Freq PRN Reason Stop Dose Admin Acetaminophen 650 mg 09/24/20 15:40 Acetaminophen 325 Mg Tablet PO Q6H PRN Pain, Mild (Pain Scale 1-3) Al Hydroxide/Mg Hydroxide 30 ml 09/24/20 15:40 Magnesium Hydrox/Alum Hydrox 30 Ml Oral.Susp PO Q4H PRN Heartburn/Nausea Baclofen 10 mg 09/22/20 10:30 10/10/20 08:17 Baclofen 10 Mg Tablet PO 10 mg BID BARBIE Administration Bisacodyl 10 mg 09/22/20 10:28 Bisacodyl 10 Mg Supp.Rect CA DAILY PRN Constipation Clotrimazole 1 appl 09/22/20 10:28 Clotrimazole 1 % Cream 15 Gm Tube TOPICAL TID PRN Rash Clozapine 400 mg 09/22/20 21:00 10/09/20 20:06 Clozapine 100 Mg Tablet PO 400 mg BEDTIME BARBIE Administration Enoxaparin Sodium 40 mg 09/24/20 18:00 10/09/20 17:33 Enoxaparin Sodium 40 Mg/0.4 Ml Syringe SUBCUT 40 mg Q24H BARBIE Administration Magnesium Hydroxide 30 ml 09/22/20 10:28 Milk Of Magnesia 30 Ml Oral.Susp PO DAILY PRN Constipation Nicotine 14 mg 09/22/20 11:00 10/10/20 08:17 Nicotine 14 Mg Patch.Td24 TRANSDERMA 14 mg DAILY BARBIE Administration Ondansetron HCl 4 mg 09/24/20 15:40 Ondansetron Hcl 4 Mg/2 Ml Vial IVPUSH Q8H PRN Nausea and Vomiting Sodium Chloride 3 ml 09/24/20 16:00 10/10/20 07:23 0.9 % Sodium Chloride Flush 3 Ml Syringe IVFLUSH Not Given QSHIFT [facility] Labs CBC & Chem 7: 10/04/20 08:03 10/04/20 08:03 Microbiology Microbiology Results: Microbiology 09/21/20 19:47 Blood - Venous Blood Culture - Final No growth after 5 days. 09/21/20 19:47 Blood - Venous Blood Culture - Final No growth after 5 days. 09/21/20 20:01 Urine clean catch - Clean Catch Midstream Urine Culture - Final Providencia rettgeri Assessment and Plan (1) Social problem: Status: Acute (2) Urinary tract infection: Status: Acute Assessment and Plan: hospital day #17 65yo M resident of SNF with schizophrenia on clozapine admitted for social issue (had no [place] guardianship to allow ongoing use of longstanding antipsychotic) # UTI, resolved - treated with 5d of ceftriaxone -> cefuroxime for Providencia rettgeri # schizophrenia - continue clozapine # BPH with chronic prostatism - continue tamsulosin - has chronic Madsen - Urology outpt follow-up # social problem - [place] guardianship hearing 10/11/20 followed by SNF placement # tobacco abuse - NRT # VTE ppx - LMWH
--- NOTE | 2020-10-10 14:51 | MHC.CM.PN ---
PURNIMA COHN UPDATED. REQUEST MADE OT HOSPITALIST FOR COVID TEST IN ANTICIPATION OF DC THURSDAY 10/11. IMM DISCUSSED WITH GUARDIAN/BROTHER, MARLON ([phone]) MARLON ASKS THAT IMM BE LEFT WITH PATIENT'S BELONGINGS. CONTACT CARD ATTACHED AND LEFT WITH PATIENT. PATIENT IS NOW AWARE OF POTENTIAL DC FOR Thursday10/11/2020, BUT POSSIBLY 10/12/2020. IMM AND ADDENDUM 10/11 IN CHART
[2020-10-10 15:20] VITALS: BP 101/73; PULSE 108; RESP 19; TEMP 36.2; O2SAT 98
[2020-10-10 15:49] LABS: COVID-19 Test Negative (Negative)
[2020-10-10] MEDS: Enoxaparin Sodium 40 MG/0.4 ML SYRINGE SUBCUT (17:38)
[2020-10-10] MEDS: cloZAPine 100 MG TABLET 400 MG PO (20:08)
[2020-10-10 23:58] VITALS: BP 161/79; PULSE 79; RESP 19; TEMP 36.7; O2SAT 95
[2020-10-11 07:16] VITALS: BP 122/80; PULSE 92; RESP 19; TEMP 36.5; O2SAT 97
[2020-10-11 07:19] VITALS: BP 122/80; PULSE 99; RESP 19; TEMP 36.1; O2SAT 97
[2020-10-11] MEDS: Nicotine 14 MG PATCH.TD24 TRANSDERMA (08:13)
[2020-10-11] MEDS: Baclofen 10 MG TABLET PO (08:13)
[2020-10-11 11:10] VITALS: BP 108/74; PULSE 88; RESP 20; TEMP 36.6; O2SAT 97
--- NOTE | 2020-10-11 11:22 | MHC.CM.PN ---
THIS DIRECTOR FINANCIAL PLANNING CONFIRMED THAT GUARDIAN/BROTHER, MARLON ([phone]) WANTS PATIENT TO DC TO [facility] TODAY. FACILITY OFFERING. PLAN IS TO HAVE PATIENT TRANSFER BY 16:00 TODAY VIA [facility]. ESTELA ORDER GRANTED AND IN ALLSCRIPTS IMM 10/10/2020 IN CHART
--- NOTE | 2020-10-11 12:21 | PM.DS ---
DS: Providers Provider Date of admission: 09/24/20 13:48 Primary care physician: Unknown Physician Consults: 10/01/20 12:41 Consult to Psychiatry Routine Consulting Provider: [facility] Reason for consultation: h/o schizophrenia on antiphychotic for medication reconcillation for stephanie DS: Diagnosis Discharge Diagnosis (1) Social problem: Status: Acute (2) Urinary tract infection: Status: Acute (3) Schizophrenia: Status: Acute DS: Medications Discharge Medications Home Medications: Home Medications Medication Instructions Recorded Confirmed baclofen 10 mg PO BID 09/22/20 09/22/20 bisacodyl [Dulcolax (bisacodyl)] 10 mg NM DAILY PRN 09/22/20 09/22/20 clotrimazole 1 applic TOPICAL TID PRN 09/22/20 09/22/20 clozapine 400 mg PO BEDTIME 09/22/20 09/22/20 magnesium hydroxide [Milk of 30 ml PO DAILY PRN 09/22/20 09/22/20 Magnesia] nicotine [Nicoderm CQ] 1 patch TRANSDERMAL DAILY 09/22/20 09/22/20 simvastatin 10 mg PO DAILY 09/22/20 09/22/20 tamsulosin [Flomax] 0.4 mg PO DAILY 09/22/20 09/22/20 DS: Summary Hospital Course Hospital Course: from admission history and physical by hospitalist Dr Dale Arana, 09/24/20: 65 years old male with PMH of psychiatric disorder under guardianship of his brother presents to the hospital from a facility for social issue. The patient was primarily sent to [facility] on August 22. Upon reviewing his status last week the facility noticed that the patient has a guardianship who day contacted and requested them to send the patient back to the hospital as he does not want him to be at [facility]. The patient was sent back from the facility and has been staying in the emergency since then. Found to have urine infection treated with oral antibiotics. After discussing with social media campaign manager and biomedical equipment tech decision was to admit the patient until placement issue is fixed. Mr Summers was admitted to the medical/surgical floor. He was diagnosed with UTI that grew out Providencia rettgeri and was treated with five days of ceftriaxone. Regarding BPH with chronic prostatism, tamsulosin and Madsen were continued and he will need outpatient follow-up with Urology in one to two weeks. Treatment of schizophrenia with clozapine was continued. He had a [place] guardianship hearing on 10/11/20 to allow ongoing use of antipsychotic and was discharged back to SNF. Time Spent with Patient Time attestation: Total time spent providing and/or coordinating discharge services: 35 Physical Exam Vital Signs: Vital Signs: Last Vital Signs Temp 97.8 F 10/11/20 11:10 Pulse 88 10/11/20 11:10 Resp 20 10/11/20 11:10 BP 108/74 10/11/20 11:10 Pulse Ox 97 10/11/20 11:10 Body Mass Index 20.1 Gen: in no acute distress HEENT: sclera anicteric, moist mucus membranes Neck: supple Lungs: clear to auscultation bilaterally Heart: regular rate and rhythm, no murmurs Abd: soft, non-tender, non-distended : Madsen draining clear yellow urine Ext: no edema Skin: warm/well-perfused Psych: tangential speech, inappropriate affect DS: Data Data Completed and Pending Labs on day of discharge: Laboratory Results WBC 10.2 X10*3/uL (4.8-10.8) 10/04/20 08:03 RBC 4.29 X10*6/uL (4.60-5.80) L 10/04/20 08:03 Hgb 13.5 g/dl (14.0-18.0) L 10/04/20 08:03 Hct 42.0 % (42-52) 10/04/20 08:03 MCV 97.9 fL (80-98) 10/04/20 08:03 MCH 31.5 pg (27.0-33.0) 10/04/20 08:03 MCHC 32.1 g/dl (31.0-36.0) 10/04/20 08:03 RDW 14.3 % (11.0-16.0) 10/04/20 08:03 Plt Count 362 X10*3/uL (160-400) 10/04/20 08:03 MPV 8.8 fL (9.4-12.4) L 10/04/20 08:03 Immature Gran % (Auto) 0.3 % (0.0-0.4) 10/04/20 08:03 Neut % (Auto) 74.0 % (45-73) H 10/04/20 08:03 Lymph % (Auto) 16.3 % (20-40) L 10/04/20 08:03 Cherry % (Auto) 6.8 % (2-11) 10/04/20 08:03 Eos % (Auto) 2.3 % (0-4) 10/04/20 08:03 Baso % (Auto) 0.3 % (0-2) 10/04/20 08:03 Lymph # (Auto) 1.7 X10*3/uL (1.2-4.9) 10/04/20 08:03 Cherry # (Auto) 0.7 X10*3/uL (0.1-1.2) 10/04/20 08:03 Eos # (Auto) 0.2 X10*3/uL (0.0-0.4) 10/04/20 08:03 Baso # (Auto) 0.0 X10*3/uL (0.0-0.2) 10/04/20 08:03 Abs Immat Gran (auto) 0.03 X10*3/uL (0.00-0.03) 10/04/20 08:03 Absolute Neuts (auto) 7.3 X10*3/uL (2.0-8.3) 10/08/20 06:06 Absolute Nucleated RBC 0.000 X10*3/uL (0.0-0.012) 10/04/20 08:03 Nucleated RBC % (auto) 0.0 /100WBC (0.0-0.2) 10/04/20 08:03 PT 12.5 SEC (10.8-13.0) 09/21/20 19:47 INR 1.1 (0.9-1.1) 09/21/20 19:47 APTT 37.0 SEC (24.1-38.0) 09/21/20 19:47 Sodium 139 mmol/L (135-145) 10/04/20 08:03 Potassium 4.4 mmol/l (3.3-5.1) 10/04/20 08:03 Chloride 104 mmol/L (96-108) 10/04/20 08:03 Carbon Dioxide 29 mmol/L (22-29) 10/04/20 08:03 Anion Gap 10 (12-20) L 10/04/20 08:03 BUN 25 mg/dL (9-16) H 10/04/20 08:03 Creatinine 0.72 mg/dL (0.5-1.4) 10/04/20 08:03 Estim Creat Clear Calc 82.0 10/04/20 08:03 Estimated GFR > 60 10/04/20 08:03 Random Glucose 103 mg/dL (60-115) 10/04/20 08:03 Lactic Acid 1.5 mmol/L (0.5-2.0) 09/21/20 19:48 Calcium 9.0 mg/dL (8.4-10.2) 10/04/20 08:03 Magnesium 2.0 mg/dL (1.6-2.6) 09/21/20 19:47 Troponin I High Sens < 3.5 ng/L (<3.5-35.0) 09/21/20 19:47 Urine Color MAGDALENA 09/21/20 19:47 Urine Appearance CLOUDY 09/21/20 19:47 Urine pH >= 9.0 (5.0-8.0) H 09/21/20 19:47 Ur Specific Kaplan <= 1.005 (1.005-1.025) 09/21/20 19:47 Urine Protein 3+ MG/DL (NEG-TRACE) H 09/21/20 19:47 Urine Glucose (UA) NEG MG/DL (NEG) 09/21/20 19:47 Urine Ketones NEG MG/DL (NEG) 09/21/20 19:47 Urine Blood 3+ (NEG) H 09/21/20 19:47 Urine Nitrite POS (NEG) H 09/21/20 19:47 Ur Leukocyte Esterase 3+ (NEG) H 09/21/20 19:47 Urine RBC 50-75 /HPF (0) H 09/21/20 19:47 Urine WBC 5-9 /HPF (0-4) H 09/21/20 19:47 Ur Squamous Epith Cells NONE /LPF 09/21/20 19:47 Triple Phos Crystals 1+ /LPF 09/21/20 19:47 Urine Bacteria 3+ /LPF 09/21/20 19:47 COVID-19 (ZAN) Negative (Negative) 10/10/20 15:27 COVID-19 Clin Com See Note 10/10/20 15:27 Impressions Chest X-Ray 09/21/20 19:20 IMPRESSION: Unremarkable examination. Discharge Plan Discharge Anticipated Discharge Date/Time: 10/11/20 11:54 Patient Disposition: Xfer [facility] Referrals: Aurelio Tucker MD [Physician] - (2 weeks) Physician,Unknown [Primary Care Provider] - Discharge Medications: Continued nicotine [Nicoderm CQ] 14 mg/24 hr Patch 24 Hour 1 patch TRANSDERMAL DAILY RF: 0 simvastatin 10 mg Tablet 10 mg PO DAILY RF: 0 magnesium hydroxide [Milk of Magnesia] 400 mg/5 mL Suspension 30 ml PO DAILY PRN (Reason: Constipation) RF: 0 tamsulosin [Flomax] 0.4 mg Capsule 0.4 mg PO DAILY RF: 0 baclofen 10 mg Tablet 10 mg PO BID RF: 0 bisacodyl [Dulcolax (bisacodyl)] 10 mg Suppository 10 mg NM DAILY PRN (Reason: Constipation) RF: 0 clotrimazole 1 % Cream 1 applic TOPICAL TID PRN (Reason: Rash) RF: 0 clozapine 200 mg Tablet 400 mg PO BEDTIME RF: 0 Discharge Orders: Discharge Order (Routine); Ordered 10/11/20 Ordered By: Aminata Wilkinson Diet: advance to usual diet Activity on Discharge: As tolerated Patient Instructions: Madsen Catheter Placement and Care (DC) Visit Report Forms: Patient Portal Discharge page Care Plan Goals: relief of urinary infection + retention Health Concerns: UTI, resolved chronic urinary retention, on Madsen catheter Plan of Treatment: follow up with Dr Aurelio Tucker, [facility], in 1-[address] [place] [address] , [address] [place] [address] [address], [address] [place], [place] [id number]
== END 2020-10-11 12:57 | disposition skilled nursing facility (03) | DRG 690 ==
LOC: HO.ED 09-24 09:47 → HO.S3 09-24 14:31
PROVIDERS: Internal Medicine; Nurse Practitioner Family; Admitting Provider Student in an Organized Health Care Education/Training Program; Emergency Provider Emergency Medicine; Visit Provider Family Medicine
DX: N39.0 Urinary tract infection, site not specified (principal); F43.10 Post-traumatic stress disorder, unspecified; F17.210 Nicotine dependence, cigarettes, uncomplicated; F20.9 Schizophrenia, unspecified; Z20.828 Contact with and (suspected) exposure to other viral communicable diseases; N40.0 Benign prostatic hyperplasia without lower urinary tract symptoms; Z96.0 Presence of urogenital implants; Z65.8 Other specified problems related to psychosocial circumstances; Z71.6 Tobacco abuse counseling; Z79.899 Other long term (current) drug therapy
CPT/HCPCS: 36415; 71045; 80048; 81001; 83605; 83735; 84484; 85025; 85027; 85610; 85730; 87040; 87086; 87088; 87186; 87635; 93005; 96365; 97116; 97162; 97530; 99222; 99285; J0696; J1650

== ENCOUNTER 2020-11-06 16:15 | Emergency (ER) | payer MEDICARE, MEDICAID, SELFPAY ==
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
--- NOTE | 2020-11-06 15:45 | ED.GENADULT ---
HPI - General Adult General Chief complaint: Failure to Thrive <Reji Connor NP - Last Filed: 11/06/20 21:11> Stated complaint: ams, ?uti <Reji Connor NP - Last Filed: 11/06/20 21:11> Time Seen by Provider: 11/06/20 19:37 <Reji Connor NP - Last Filed: 11/06/20 21:11> Source: EMS <Reji Connor NP - Last Filed: 11/06/20 21:11> Mode of arrival: EMS <Reji Connor NP - Last Filed: 11/06/20 21:11> History of Present Illness HPI narrative: This is a pleasant 65-year-old male with past medical history that is significant for schizophrenia, BPH, recurrent urinary tract infections who is under guardianship of his brother Herve Tabares who reports to me that at baseline patient is alert and oriented x3 but is somewhat poor historian and he has been primarily taking care of him for most of his life secondary to his schizophrenia who was here in this facility in September and discharged in beginning of October for urinary tract infection and deconditioning subsequently [facility] nurse [facility] from where he got discharged 3 days ago and has been at home and reports he has been not take care himself and question he has UTI again. There has not been any fevers, complaint of dysuria, nausea vomiting diarrhea or abdominal pain at home. <Reji Connor NP - Last Filed: 11/06/20 21:11> Related Data Home medications: Home Medications Medication Instructions Recorded Confirmed baclofen 10 mg PO BID 09/22/20 11/06/20 bisacodyl [Dulcolax (bisacodyl)] 10 mg NM DAILY PRN 09/22/20 11/06/20 clotrimazole 1 applic TOPICAL TID PRN 09/22/20 11/06/20 clozapine 400 mg PO BEDTIME 09/22/20 09/22/20 magnesium hydroxide [Milk of 30 ml PO DAILY PRN 09/22/20 11/06/20 Magnesia] nicotine [Nicoderm CQ] 1 patch TRANSDERMAL DAILY 09/22/20 11/06/20 simvastatin 10 mg PO DAILY 09/22/20 11/06/20 tamsulosin [Flomax] 0.4 mg PO DAILY 09/22/20 11/06/20 <Reji Connor NP - Last Filed: 11/06/20 21:11> Allergies/adverse reactions: Allergies Allergy/AdvReac Type Severity Reaction Status Date / Time No Known Allergies Allergy Verified 08/22/20 10:43 <Reji Connor NP - Last Filed: 11/06/20 21:11> Review of Systems Review of Systems: Constitutional: No Weight loss, No Fever, No Chills, No Night Sweats, No Fatigue, No Malaise ENT/Mouth: No Hearing loss, No Ear Pain, No Nasal Congestion, No Sinus Pain, No Hoarseness, No sore throat, No Rhinorrhea, No Swallowing Difficulty Eyes: No Eye Pain, No Swelling, No Redness, No Foreign Body, No Discharge, No Vision Changes Cardiovascular: No Chest Pain, No SOB, No Dyspnea on Exertion, No Orthopnea, No Edema, No Palpitations Respiratory: No Cough, No Sputum, No Wheezing, No Smoke Exposure, No Dyspnea Gastrointestinal: No Nausea, No Vomiting, No Diarrhea, No Constipation, No abdominal Pain, No Hematochezia, No Melena Genitourinary: no irregular bleeding, No Dysuria, No Urinary Frequency, No Hematuria, No Urinary Incontinence, No Urgency, No Flank Pain Musculoskeletal: No joint pain, No Myalgias, No Joint Swelling Skin: No Skin Lesions, No rash Neuro: No Weakness, No Numbness, No Paresthesias, No Loss of Consciousness, No Dizziness, No Headache Psych: No Anxiety/Panic, No Depression, No SI/HI/AH/VH Heme/Lymph: No Bruising, No Bleeding,No Lymphadenopathy Endocrine: No Polyuria, No Polydipsia, No Temperature Intolerance <Reji Connor NP - Last Filed: 11/06/20 21:11> Yes all other systems are reviewed and are negative <Reji Connor NP - Last Filed: 11/06/20 21:11> PMFSH Past Medical History Medical History: Medical History (Updated 11/06/20 @ 21:11 by Reji Connor NP) Hernia Poor historian Post traumatic stress disorder (PTSD) Psychosis Schizophrenia <Reji Connor NP - Last Filed: 11/06/20 21:11> Social History Social History: Social History Household Members: Family Housing: House Alcohol intake: unknown Smoking Status: Unknown if ever smoked Tobacco Type: Cigarette Packs Per Day: 1 Cigarettes Per Day: 20.0 Years Smoked: 45 Second Hand Smoke Exposure: No Use of substances other than those prescribed or required for medical reasons: No Advance Directives: No Advance Directives Information Provided: No service: Yes Current occupational status: employed <Reji Connor NP - Last Filed: 11/06/20 21:11> Physical Exam Vital Signs: Vital Signs: Last Vital Signs Temp 97.9 F 11/06/20 22:11 Pulse 84 11/07/20 06:00 Resp 16 11/07/20 06:00 BP 118/72 11/07/20 06:00 Pulse Ox 94 11/07/20 06:33 Body Mass Index 21.7 Reviewed <Reji Connor NP - Last Filed: 11/06/20 21:11> Vital Signs: Last Vital Signs Temp 97.9 F 11/06/20 22:11 Pulse 84 11/07/20 06:00 Resp 16 11/07/20 06:00 BP 118/72 11/07/20 06:00 Pulse Ox 94 11/07/20 06:33 Body Mass Index 21.7 <Idalia Lee DO - Last Filed: 11/07/20 06:54> Const: Other: Appears significantly older than stated age, ill-kempt, underweight. <Reji Connor NP - Last Filed: 11/06/20 21:11> General: cooperative and healthy appearing; No acute distress or intoxicated appearing <Reji Connor NP - Last Filed: 11/06/20 21:11> Nutritional Appearance: average body habitus <Reji Connor NP - Last Filed: 11/06/20 21:11> Orientation/consciousness: patient oriented x3 <Reji Connor NP - Last Filed: 11/06/20 21:11> HENMT: Head: Yes normal to inspection <Reji Connor NP - Last Filed: 11/06/20 21:11> Ears: hearing grossly normal bilaterally <Reji Connor NP - Last Filed: 11/06/20 21:11> Eyes: General: appearance normal, both eyes and all related structures <Reji Connor NP - Last Filed: 11/06/20 21:11> Visual Ellis: normal visual ellis by confrontation <Reji Connor NP - Last Filed: 11/06/20 21:11> Neck: Neck: Yes normal visual inspection, No positive Brudzinski's sign, No positive Kernig's sign and No tender <Rejiberny Connor NP - Last Filed: 11/06/20 21:11> Thyroid: Thyroid normal <Reji LIEN Connor - Last Filed: 11/06/20 21:11> Chest: Chest palpation & inspection: normal inspection of the chest <Reji Connor NP - Last Filed: 11/06/20 21:11> Resp: Effort & Inspection: normal respiratory effort <Reji Connor NP - Last Filed: 11/06/20 21:11> Cardio: Jugular venous distension: no JVD <Rejiberny Connor NP - Last Filed: 11/06/20 21:11> GI: Inspection: Yes normal to inspection <Rejiberny Connor NP - Last Filed: 11/06/20 21:11> Percussion: Yes normal to percussion <Rejiberny Connor NP - Last Filed: 11/06/20 21:11> Auscultation: normal bowel sounds <Reji Connor NP - Last Filed: 11/06/20 21:11> : General: Yes no CVA tenderness <Rejiberny Connor NP - Last Filed: 11/06/20 21:11> Back/Spine/Pelvis: Back: no CVA tenderness <Rejiberny Connor NP - Last Filed: 11/06/20 21:11> Skin: General skin exam: no rashes or lesions noted <Reji LIEN Connor - Last Filed: 11/06/20 21:11> Neuro: General: patient oriented x3 <Reji Connor NP - Last Filed: 11/06/20 21:11> Extrem: General: Yes normal to inspection <Rejiberny Connor NP - Last Filed: 11/06/20 21:11> Course Course Course Narrative: Interview 65-year-old male with history of schizophrenia under guardianship of brother with history of BPH, recurrent urine tract infections admitted at the end of September in to October urine culture grew out Providencia rettgeri sensitivity; ceftriaxone, gentamicin, levofloxacin, Bactrim - he was treated with ceftriaxone and subsequently discharged to rehab from where he got discharged 3 days ago inability care for himself question needing more time at Mom re per family. Patient upon arrival alert and oriented x3 states he thought he was going to memory and offers no real complaints. He does appear older than stated age appears ill kempt. He is hemodynamically stable. Offers no complaints. Given his history will get basic labs and UA and consult ED case management staff should PT for input. <Reji Connor NP - Last Filed: 11/06/20 21:11> Reevaluation(s) Reevaluation #1: Case discussed with ED case management Brandy aware of patient possibly needing go back to [facility] requesting PT evaluation per insurance PT is gone for a day. His workup is still pending. <Reji Connor NP - Last Filed: 11/06/20 21:11> Reevaluation #2: Leukocytosis 16 otherwise no other signs or symptoms of systemic infection. Renal function nearly double his baseline creatinine 1.57/BUN 55. Given 1 L of normal saline. Straight cath for urine.. <Reji Connor NP - Last Filed: 11/06/20 21:11> Reevaluation #3: Urine positive nitrate, RBC, , leukocyte Estrace, positive bacteria this was on a straight cath. Given dose of ceftriaxone based on previous culture. Given LYNN and your infection Case discussed with hospitalist for admission given that there is no systemic infections and can go to SNF hospitalist is requesting hydration and recheck of renal function after gradual addition of that improves feels that patient can safely go to SNF with course of levofloxacin. <Reji Connor NP - Last Filed: 11/06/20 21:11> Additional Reevaluation(s): Patient receiving fluids. Resting comfortably offers no complaints. Watching television. Case signed out to LIEN Tapia at this time with plan for repeat BMP - and re-presentation to the hospitalist if any significant abnormality. <Reji Connor NP - Last Filed: 11/06/20 21:11> Consultations Consultation #1: Hospitalist Dr. Galaviz <Reji Connor NP - Last Filed: 11/06/20 21:11> Medical Decision Making Lab Data Result diagrams: : 11/06/20 17:03 11/06/20 21:41 <Reji Connor NP - Last Filed: 11/06/20 21:11> Labs: Lab Results 11/06/20 11/06/20 11/06/20 Range/Units 17:03 17:03 17:03 WBC 16.5 H (4.8-10.8) X10*3/uL RBC 3.99 L (4.60-5.80) X10*6/uL Hgb 11.9 L (14.0-18.0) g/dl Hct 37.8 L (42-52) % MCV 94.7 (80-98) fL MCH 29.8 (27.0-33.0) pg MCHC 31.5 (31.0-36.0) g/dl RDW 14.4 (11.0-16.0) % Plt Count 561 H D (160-400) X10*3/uL MPV 8.8 L (9.4-12.4) fL Immature Gran % (Auto) 1.0 H (0.0-0.4) % Neut % (Auto) 89.9 H (45-73) % Lymph % (Auto) 4.4 L (20-40) % [place] % (Auto) 4.6 (2-11) % Eos % (Auto) 0.0 (0-4) % Baso % (Auto) 0.1 (0-2) % Lymph # (Auto) 0.7 L (1.2-4.9) X10*3/uL [place] # (Auto) 0.8 (0.1-1.2) X10*3/uL Eos # (Auto) 0.0 (0.0-0.4) X10*3/uL Baso # (Auto) 0.0 (0.0-0.2) X10*3/uL Abs Immat Gran (auto) 0.16 H (0.00-0.03) X10*3/uL Absolute Neuts (auto) 14.8 H (2.0-8.3) X10*3/uL Absolute Nucleated RBC 0.000 (0.0-0.012) X10*3/uL Nucleated RBC % (auto) 0.0 (0.0-0.2) /100WBC PT 16.2 H D (10.8-13.0) SEC INR 1.4 H (0.9-1.1) APTT 32.7 (24.1-38.0) SEC Sodium 147 H (135-145) mmol/L Potassium 3.5 D (3.3-5.1) mmol/l Chloride 109 H (96-108) mmol/L Carbon Dioxide 23 (22-29) mmol/L Anion Gap 19 (12-20) BUN 55 H D (9-16) mg/dL Creatinine 1.57 H (0.5-1.4) mg/dL Estim Creat Clear Calc 40.6 Estimated GFR 45 Random Glucose 111 (60-115) mg/dL Calcium 8.2 L (8.4-10.2) mg/dL Total Bilirubin 0.5 (0.0-1.0) mg/dL AST 35 D (5-37) U/L ALT 19 (0-40) U/L Alkaline Phosphatase 147 H D (39-117) U/L Total Protein 7.4 (6.5-8.0) g/dL Albumin 3.4 L (3.5-5.0) g/dL Urine Color Urine Appearance Urine pH (5.0-8.0) Ur Specific Stanford (1.005-1.025) Urine Protein (NEG-TRACE) MG/DL Urine Glucose (UA) (NEG) MG/DL Urine Ketones (NEG) MG/DL Urine Blood (NEG) Urine Nitrite (NEG) Ur Leukocyte Esterase (NEG) Urine RBC (0) /HPF Urine WBC (0-4) /HPF Ur Squamous Epith Cells /LPF Urine Bacteria /LPF Urine Mucus /LPF COVID-19 (ZAN) (Negative) COVID-19 Clin Com 11/06/20 11/06/20 11/07/20 Range/Units 20:15 21:41 06:15 WBC (4.8-10.8) X10*3/uL RBC (4.60-5.80) X10*6/uL Hgb (14.0-18.0) g/dl Hct (42-52) % MCV (80-98) fL MCH (27.0-33.0) pg MCHC (31.0-36.0) g/dl RDW (11.0-16.0) % Plt Count (160-400) X10*3/uL MPV (9.4-12.4) fL Immature Gran % (Auto) (0.0-0.4) % Neut % (Auto) (45-73) % Lymph % (Auto) (20-40) % [place] % (Auto) (2-11) % Eos % (Auto) (0-4) % Baso % (Auto) (0-2) % Lymph # (Auto) (1.2-4.9) X10*3/uL [place] # (Auto) (0.1-1.2) X10*3/uL Eos # (Auto) (0.0-0.4) X10*3/uL Baso # (Auto) (0.0-0.2) X10*3/uL Abs Immat Gran (auto) (0.00-0.03) X10*3/uL Absolute Neuts (auto) (2.0-8.3) X10*3/uL Absolute Nucleated RBC (0.0-0.012) X10*3/uL Nucleated RBC % (auto) (0.0-0.2) /100WBC PT (10.8-13.0) SEC INR (0.9-1.1) APTT (24.1-38.0) SEC Sodium 147 H (135-145) mmol/L Potassium 3.6 (3.3-5.1) mmol/l Chloride 112 H (96-108) mmol/L Carbon Dioxide 25 (22-29) mmol/L Anion Gap 14 (12-20) BUN 47 H (9-16) mg/dL Creatinine 1.17 (0.5-1.4) mg/dL Estim Creat Clear Calc 54.5 Estimated GFR > 60 Random Glucose 132 H (60-115) mg/dL Calcium 7.8 L (8.4-10.2) mg/dL Total Bilirubin (0.0-1.0) mg/dL AST (5-37) U/L ALT (0-40) U/L Alkaline Phosphatase (39-117) U/L Total Protein (6.5-8.0) g/dL Albumin (3.5-5.0) g/dL Urine Color MAGDALENA Urine Appearance CLOUDY Urine pH 5.5 (5.0-8.0) Ur Specific Stanford 1.025 (1.005-1.025) Urine Protein TRACE (NEG-TRACE) MG/DL Urine Glucose (UA) NEG (NEG) MG/DL Urine Ketones NEG (NEG) MG/DL Urine Blood 3+ H (NEG) Urine Nitrite POS H (NEG) Ur Leukocyte Esterase TRACE H (NEG) Urine RBC 76-150 H (0) /HPF Urine WBC 30-49 H (0-4) /HPF Ur Squamous Epith Cells 1+ /LPF Urine Bacteria 2+ /LPF Urine Mucus 1+ /LPF COVID-19 (ZAN) Negative (Negative) COVID-19 Clin Com See Note <Reji Connor NP - Last Filed: 11/06/20 21:11> Lab Results 11/06/20 11/06/20 11/06/20 Range/Units 17:03 17:03 17:03 WBC 16.5 H (4.8-10.8) X10*3/uL RBC 3.99 L (4.60-5.80) X10*6/uL Hgb 11.9 L (14.0-18.0) g/dl Hct 37.8 L (42-52) % MCV 94.7 (80-98) fL MCH 29.8 (27.0-33.0) pg MCHC 31.5 (31.0-36.0) g/dl RDW 14.4 (11.0-16.0) % Plt Count 561 H D (160-400) X10*3/uL MPV 8.8 L (9.4-12.4) fL Immature Gran % (Auto) 1.0 H (0.0-0.4) % Neut % (Auto) 89.9 H (45-73) % Lymph % (Auto) 4.4 L (20-40) % [place] % (Auto) 4.6 (2-11) % Eos % (Auto) 0.0 (0-4) % Baso % (Auto) 0.1 (0-2) % Lymph # (Auto) 0.7 L (1.2-4.9) X10*3/uL [place] # (Auto) 0.8 (0.1-1.2) X10*3/uL Eos # (Auto) 0.0 (0.0-0.4) X10*3/uL Baso # (Auto) 0.0 (0.0-0.2) X10*3/uL Abs Immat Gran (auto) 0.16 H (0.00-0.03) X10*3/uL Absolute Neuts (auto) 14.8 H (2.0-8.3) X10*3/uL Absolute Nucleated RBC 0.000 (0.0-0.012) X10*3/uL Nucleated RBC % (auto) 0.0 (0.0-0.2) /100WBC PT 16.2 H D (10.8-13.0) SEC INR 1.4 H (0.9-1.1) APTT 32.7 (24.1-38.0) SEC Sodium 147 H (135-145) mmol/L Potassium 3.5 D (3.3-5.1) mmol/l Chloride 109 H (96-108) mmol/L Carbon Dioxide 23 (22-29) mmol/L Anion Gap 19 (12-20) BUN 55 H D (9-16) mg/dL Creatinine 1.57 H (0.5-1.4) mg/dL Estim Creat Clear Calc 40.6 Estimated GFR 45 Random Glucose 111 (60-115) mg/dL Calcium 8.2 L (8.4-10.2) mg/dL Total Bilirubin 0.5 (0.0-1.0) mg/dL AST 35 D (5-37) U/L ALT 19 (0-40) U/L Alkaline Phosphatase 147 H D (39-117) U/L Total Protein 7.4 (6.5-8.0) g/dL Albumin 3.4 L (3.5-5.0) g/dL Urine Color Urine Appearance Urine pH (5.0-8.0) Ur Specific Stanford (1.005-1.025) Urine Protein (NEG-TRACE) MG/DL Urine Glucose (UA) (NEG) MG/DL Urine Ketones (NEG) MG/DL Urine Blood (NEG) Urine Nitrite (NEG) Ur Leukocyte Esterase (NEG) Urine RBC (0) /HPF Urine WBC (0-4) /HPF Ur Squamous Epith Cells /LPF Urine Bacteria /LPF Urine Mucus /LPF COVID-19 (ZAN) (Negative) COVID-19 Clin Com 11/06/20 11/06/20 11/07/20 Range/Units 20:15 21:41 06:15 WBC (4.8-10.8) X10*3/uL RBC (4.60-5.80) X10*6/uL Hgb (14.0-18.0) g/dl Hct (42-52) % MCV (80-98) fL MCH (27.0-33.0) pg MCHC (31.0-36.0) g/dl RDW (11.0-16.0) % Plt Count (160-400) X10*3/uL MPV (9.4-12.4) fL Immature Gran % (Auto) (0.0-0.4) % Neut % (Auto) (45-73) % Lymph % (Auto) (20-40) % [place] % (Auto) (2-11) % Eos % (Auto) (0-4) % Baso % (Auto) (0-2) % Lymph # (Auto) (1.2-4.9) X10*3/uL [place] # (Auto) (0.1-1.2) X10*3/uL Eos # (Auto) (0.0-0.4) X10*3/uL Baso # (Auto) (0.0-0.2) X10*3/uL Abs Immat Gran (auto) (0.00-0.03) X10*3/uL Absolute Neuts (auto) (2.0-8.3) X10*3/uL Absolute Nucleated RBC (0.0-0.012) X10*3/uL Nucleated RBC % (auto) (0.0-0.2) /100WBC PT (10.8-13.0) SEC INR (0.9-1.1) APTT (24.1-38.0) SEC Sodium 147 H (135-145) mmol/L Potassium 3.6 (3.3-5.1) mmol/l Chloride 112 H (96-108) mmol/L Carbon Dioxide 25 (22-29) mmol/L Anion Gap 14 (12-20) BUN 47 H (9-16) mg/dL Creatinine 1.17 (0.5-1.4) mg/dL Estim Creat Clear Calc 54.5 Estimated GFR > 60 Random Glucose 132 H (60-115) mg/dL Calcium 7.8 L (8.4-10.2) mg/dL Total Bilirubin (0.0-1.0) mg/dL AST (5-37) U/L ALT (0-40) U/L Alkaline Phosphatase (39-117) U/L Total Protein (6.5-8.0) g/dL Albumin (3.5-5.0) g/dL Urine Color MAGDALENA Urine Appearance CLOUDY Urine pH 5.5 (5.0-8.0) Ur Specific Stanford 1.025 (1.005-1.025) Urine Protein TRACE (NEG-TRACE) MG/DL Urine Glucose (UA) NEG (NEG) MG/DL Urine Ketones NEG (NEG) MG/DL Urine Blood 3+ H (NEG) Urine Nitrite POS H (NEG) Ur Leukocyte Esterase TRACE H (NEG) Urine RBC 76-150 H (0) /HPF Urine WBC 30-49 H (0-4) /HPF Ur Squamous Epith Cells 1+ /LPF Urine Bacteria 2+ /LPF Urine Mucus 1+ /LPF COVID-19 (ZAN) Negative (Negative) COVID-19 Clin Com See Note <Idalia Lee DO - Last Filed: 11/07/20 06:54> Discharge Plan Discharge Clinical Impression: LYNN (acute kidney injury), Acute UTI, Adult failure to thrive <Reji Connor NP - Last Filed: 11/06/20 21:11> Prescriptions: No Action nicotine [Nicoderm CQ] 14 mg/24 hr Patch 24 Hour 1 patch TRANSDERMAL DAILY RF: 0 simvastatin 10 mg Tablet 10 mg PO DAILY RF: 0 magnesium hydroxide [Milk of Magnesia] 400 mg/5 mL Suspension 30 ml PO DAILY PRN (Reason: Constipation) RF: 0 tamsulosin [Flomax] 0.4 mg Capsule 0.4 mg PO DAILY RF: 0 baclofen 10 mg Tablet 10 mg PO BID RF: 0 bisacodyl [Dulcolax (bisacodyl)] 10 mg Suppository 10 mg NM DAILY PRN (Reason: Constipation) RF: 0 clotrimazole 1 % Cream 1 applic TOPICAL TID PRN (Reason: Rash) RF: 0 clozapine 200 mg Tablet 400 mg PO BEDTIME RF: 0 <Reji Connor NP - Last Filed: 11/06/20 21:11>
[2020-11-06 16:12] VITALS: BP 117/75; PULSE 90; RESP 20; TEMP 36.6; O2SAT 96; BMI 21.7
[2020-11-06 17:09] LABS: MANUAL DIFF FLAG NO
[2020-11-06 17:11] LABS: Basophils Percent Auto 0.1 % (0-2); Hematocrit 37.8 % (42-52); Hemoglobin 11.9 g/dl (14.0-18.0); Imm Gran Abs Auto 0.16 X10*3/uL (0.00-0.03); Lymphocytes Absolute Auto 0.7 X10*3/uL (1.2-4.9); Lymphocytes Percent Auto 4.4 % (20-40); Mean Corpuscular HGB Conc 31.5 g/dl (31.0-36.0); Mean Corpuscular Hemoglobin 29.8 pg (27.0-33.0); Mean Corpuscular Volume 94.7 fL (80-98); Mean Platelet Volume 8.8 fL (9.4-12.4); Monocytes Absolute Auto 0.8 X10*3/uL (0.1-1.2); Monocytes Percent Auto 4.6 % (2-11); Neutrophils Absolute Auto 14.8 X10*3/uL (2.0-8.3); Neutrophils Percent Auto 89.9 % (45-73); Platelet Count 561 X10*3/uL (160-400); Red Blood Count 3.99 X10*6/uL (4.60-5.80); Red Cell Distribution Width 14.4 % (11.0-16.0); White Blood Count 16.5 X10*3/uL (4.8-10.8)
[2020-11-06 17:27] LABS: INTERNATIONAL NORM RATIO 1.4 (0.9-1.1); Prothrombin Time 16.2 SEC (10.8-13.0)
[2020-11-06 17:30] LABS: Partial Thromboplastin Time 32.7 SEC (24.1-38.0)
[2020-11-06 17:41] LABS: Alanine Aminotransferase 19 U/L (0-40); Albumin Level 3.4 g/dL (3.5-5.0); Alkaline Phosphatase 147 U/L (39-117); Anion Gap 19 (12-20); Aspartate Amino Transferase 35 U/L (5-37); Bilirubin Total 0.5 mg/dL (0.0-1.0); Blood Urea Nitrogen 55 mg/dL (9-16); Calcium 8.2 mg/dL (8.4-10.2); Carbon Dioxide 23 mmol/L (22-29); Chloride 109 mmol/L (96-108); Creatinine Clr Calc Pharmacy 40.6; Estimated Glomerular Filt Rate 45; Glucose Random 111 mg/dL (60-115); Potassium 3.5 mmol/l (3.3-5.1); Sodium 147 mmol/L (135-145); Total Protein 7.4 g/dL (6.5-8.0)
[2020-11-06 18:02] VITALS: RESP 18
--- NOTE | 2020-11-06 19:11 | PC.NURSE ---
Patient is case management. Report taken from Indio Farmer Rn. Patient's brother is unable to care for patient. Patient has a psychiatric history
[2020-11-06 20:00] VITALS: BP 114/74; PULSE 90; RESP 18; O2SAT 96
--- NOTE | 2020-11-06 20:33 | PC.NURSE ---
LIEN Connor placed and IV in patient's left anticub and administered NS IV.
[2020-11-06 20:41] LABS: Glucose Urine UA NEG (NEG); Leukocyte Esterase Urine TRACE (NEG); Nitrite Urine POS (NEG); PH 5.5 (5.0-8.0); Specific Gravity - Urine 1.025 (1.005-1.025); Urine Blood 3+ (NEG); Urine Ketones NEG (NEG); Urine Protein TRACE MG/DL (NEG-TRACE)
[2020-11-06 20:42] LABS: Appearance Urine CLOUDY; Color Urine AMBER
[2020-11-06 20:45] LABS: WBC Urine 30-49 /HPF (0-4)
[2020-11-06 20:46] LABS: Bacteria Urine 2+ /LPF; Mucus Urine 1+ /LPF; Squamous Epithelial Cell Urine 1+ /LPF
[2020-11-06] MEDS: cefTRIAXone sodium 1 GM in 0.9 % Sodium Chloride 50 ML IV (21:53)
[2020-11-06 22:08] LABS: Anion Gap 14 (12-20); Blood Urea Nitrogen 47 mg/dL (9-16); Calcium 7.8 mg/dL (8.4-10.2); Carbon Dioxide 25 mmol/L (22-29); Chloride 112 mmol/L (96-108); Creatinine Clr Calc Pharmacy 54.5; Estimated Glomerular Filt Rate > 60; Glucose Random 132 mg/dL (60-115); Potassium 3.6 mmol/l (3.3-5.1); Sodium 147 mmol/L (135-145)
[2020-11-06 22:11] VITALS: BP 125/73; PULSE 87; RESP 18; TEMP 36.6; O2SAT 93
[2020-11-07 00:48] VITALS: BP 116/74; PULSE 84; RESP 15; O2SAT 94
[2020-11-07 06:00] VITALS: BP 118/72; PULSE 84; RESP 16; O2SAT 94
--- NOTE | 2020-11-07 06:30 | PC.NURSE ---
Pharmacy came down last night to do a medication reconciliation and patient's medication is flagging yellow for an uncomfirmed medication
[2020-11-07 06:33] VITALS: O2SAT 94
[2020-11-07 06:37] LABS: COVID-19 Test Negative (Negative); IDNOW Serial# 9DD0AD1C
[2020-11-07 07:20] VITALS: O2SAT 94
[2020-11-07] MEDS: levoFLOXacin 750 MG TABLET PO (08:01)
--- NOTE | 2020-11-07 09:42 | MHC.CM.ED ---
Pt sleeping. Known to CM. D/C from [facility] 3 days ago. Returned to ED yesterday. Here for placement. Pt wants to return to [facility]. Willing to accept. PT recommends STR for safety vs transition to LTC. [facility] willing to accept. Updated clinicals uploaded. Will follow for D/C needs.
--- NOTE | 2020-11-07 12:17 | MHC.CM.ED ---
[facility] can offer a bed. Spoke with Beto, guardian, and he is agreeable to STR at [facility]. Beto tells CM that he wants LTC for his brother, as he is disruptive at home and he can no longer care for him. Suggested he call [facility] and speak with social media marketing manager to make LTC arrangements. [facility] booked for 1pm. MD and RN aware. Pt aware
== END 2020-11-07 13:48 | disposition skilled nursing facility (03) ==
PROVIDERS: Nurse Practitioner Primary Care; Student in an Organized Health Care Education/Training Program; Emergency Provider Emergency Medicine
DX: N17.9 Acute kidney failure, unspecified (principal); N39.0 Urinary tract infection, site not specified; R62.7 Adult failure to thrive; Z20.828 Contact with and (suspected) exposure to other viral communicable diseases; F20.9 Schizophrenia, unspecified; F29 Unspecified psychosis not due to a substance or known physiological condition; Z79.899 Other long term (current) drug therapy
CPT/HCPCS: 36415; 51798; 80048; 80053; 81001; 85025; 85610; 85730; 87086; 87088; 87186; 87635; 96361; 96374; 97162; 99284; 99285; J0696

== ENCOUNTER 2020-11-26 | Outpatient (REF) | payer MEDICARE, MEDICAID, SELFPAY ==
[2020-11-26 07:19] LABS: MANUAL DIFF FLAG NO
[2020-11-26 07:29] LABS: Basophils Percent Auto 0.4 % (0-2); Eosinophils Absolute Auto 0.4 X10*3/uL (0.0-0.4); Eosinophils Percent Auto 3.8 % (0-4); Hematocrit 37.5 % (42-52); Hemoglobin 11.9 g/dl (14.0-18.0); Imm Gran Abs Auto 0.04 X10*3/uL (0.00-0.03); Imm Gran Pct Auto 0.4 % (0.0-0.4); Lymphocytes Absolute Auto 1.7 X10*3/uL (1.2-4.9); Lymphocytes Percent Auto 17.6 % (20-40); Mean Corpuscular HGB Conc 31.7 g/dl (31.0-36.0); Mean Corpuscular Hemoglobin 30.6 pg (27.0-33.0); Mean Corpuscular Volume 96.4 fL (80-98); Mean Platelet Volume 9.7 fL (9.4-12.4); Monocytes Absolute Auto 0.7 X10*3/uL (0.1-1.2); Monocytes Percent Auto 7.2 % (2-11); Neutrophils Absolute Auto 6.9 X10*3/uL (2.0-8.3); Neutrophils Percent Auto 70.6 % (45-73); Platelet Count 363 X10*3/uL (160-400); Red Blood Count 3.89 X10*6/uL (4.60-5.80); Red Cell Distribution Width 15.7 % (11.0-16.0); White Blood Count 9.8 X10*3/uL (4.8-10.8)
[2020-11-26 07:59] LABS: Anion Gap 11 (12-20); Blood Urea Nitrogen 21 mg/dL (9-16); Calcium 8.2 mg/dL (8.4-10.2); Carbon Dioxide 27 mmol/L (22-29); Chloride 107 mmol/L (96-108); Estimated Glomerular Filt Rate > 60; Glucose Random 82 mg/dL (60-115); Potassium 4.8 mmol/l (3.3-5.1); Sodium 140 mmol/L (135-145)
== END 2020-11-26 00:01 | disposition home or self-care (01) ==
LOC: HO.MMNH3L
PROVIDERS: Visit Provider Family Medicine
DX: E78.5 Hyperlipidemia, unspecified (principal); N17.9 Acute kidney failure, unspecified
CPT/HCPCS: 36415; 80048; 85025

== ENCOUNTER 2020-12-03 13:33 | Outpatient (REF) | payer MEDICARE, MEDICAID, SELFPAY ==
[2020-12-03 07:27] LABS: MANUAL DIFF FLAG NO
[2020-12-03 07:57] LABS: Basophils Percent Auto 0.2 % (0-2); Eosinophils Absolute Auto 0.2 X10*3/uL (0.0-0.4); Hematocrit 35.8 % (42-52); Hemoglobin 11.2 g/dl (14.0-18.0); Imm Gran Abs Auto 0.04 X10*3/uL (0.00-0.03); Imm Gran Pct Auto 0.4 % (0.0-0.4); Lymphocytes Absolute Auto 1.3 X10*3/uL (1.2-4.9); Lymphocytes Percent Auto 11.9 % (20-40); Mean Corpuscular HGB Conc 31.3 g/dl (31.0-36.0); Mean Corpuscular Hemoglobin 29.7 pg (27.0-33.0); Mean Platelet Volume 9.7 fL (9.4-12.4); Monocytes Absolute Auto 1.3 X10*3/uL (0.1-1.2); Neutrophils Absolute Auto 7.9 X10*3/uL (2.0-8.3); Neutrophils Percent Auto 73.5 % (45-73); Platelet Count 333 X10*3/uL (160-400); Red Blood Count 3.77 X10*6/uL (4.60-5.80); Red Cell Distribution Width 16.2 % (11.0-16.0); White Blood Count 10.8 X10*3/uL (4.8-10.8)
[2020-12-03 08:24] LABS: Anion Gap 11 (12-20); Blood Urea Nitrogen 15 mg/dL (9-16); Calcium 8.1 mg/dL (8.4-10.2); Carbon Dioxide 26 mmol/L (22-29); Chloride 105 mmol/L (96-108); Estimated Glomerular Filt Rate > 60; Glucose Random 97 mg/dL (60-115); Potassium 4.2 mmol/L (3.3-5.1); Sodium 138 mmol/L (135-145)
== END 2020-12-03 13:34 | disposition home or self-care (01) ==
LOC: HO.MMNH3L 13:33
PROVIDERS: Visit Provider Family Medicine
DX: N17.9 Acute kidney failure, unspecified (principal); E78.5 Hyperlipidemia, unspecified
CPT/HCPCS: 36415; 80048; 85025

== ENCOUNTER 2020-12-10 10:39 | Outpatient (REF) | payer MEDICARE, MEDICAID, SELFPAY ==
[2020-12-10 07:46] LABS: MANUAL DIFF FLAG NO
[2020-12-10 07:57] LABS: Basophils Percent Auto 0.3 % (0-2); Eosinophils Absolute Auto 0.2 X10*3/uL (0.0-0.4); Eosinophils Percent Auto 2.8 % (0-4); Hematocrit 39.9 % (42-52); Hemoglobin 12.4 g/dl (14.0-18.0); Imm Gran Abs Auto 0.06 X10*3/uL (0.00-0.03); Imm Gran Pct Auto 0.7 % (0.0-0.4); Lymphocytes Absolute Auto 1.4 X10*3/uL (1.2-4.9); Lymphocytes Percent Auto 15.6 % (20-40); Mean Corpuscular HGB Conc 31.1 g/dl (31.0-36.0); Mean Corpuscular Volume 96.6 fL (80-98); Mean Platelet Volume 9.3 fL (9.4-12.4); Monocytes Absolute Auto 0.7 X10*3/uL (0.1-1.2); Monocytes Percent Auto 8.3 % (2-11); Neutrophils Absolute Auto 6.3 X10*3/uL (2.0-8.3); Neutrophils Percent Auto 72.3 % (45-73); Platelet Count 401 X10*3/uL (160-400); Red Blood Count 4.13 X10*6/uL (4.60-5.80); Red Cell Distribution Width 15.8 % (11.0-16.0); White Blood Count 8.7 X10*3/uL (4.8-10.8)
[2020-12-10 08:08] LABS: Anion Gap 13 (12-20); Blood Urea Nitrogen 22 mg/dL (9-16); Calcium 8.9 mg/dL (8.4-10.2); Carbon Dioxide 29 mmol/L (22-29); Chloride 104 mmol/L (96-108); Estimated Glomerular Filt Rate > 60; Glucose Random 96 mg/dL (60-115); Potassium 4.7 mmol/L (3.3-5.1); Sodium 141 mmol/L (135-145)
== END 2020-12-10 10:40 | disposition home or self-care (01) ==
LOC: HO.MMNH3L 10:39
PROVIDERS: Visit Provider Family Medicine
DX: E78.5 Hyperlipidemia, unspecified (principal); N17.9 Acute kidney failure, unspecified
CPT/HCPCS: 36415; 80048; 85025

== ENCOUNTER 2020-12-17 10:29 | Outpatient (REF) | payer MEDICARE, MEDICAID, SELFPAY ==
[2020-12-17 07:45] LABS: Thyroid Stimulating Hormone 1.27 uIU/mL (0.32-4.0); Vitamin D 25-OH Total 19.2 ng/mL (>30)
[2020-12-17 08:02] LABS: Folate 8.8 ng/mL (> or = 4.0); Vitamin B12 391 pg/mL (200-900)
== END 2020-12-17 10:30 | disposition home or self-care (01) ==
LOC: HO.MMNH3L 10:29
PROVIDERS: Visit Provider Family Medicine
DX: N40.1 Benign prostatic hyperplasia with lower urinary tract symptoms (principal); N17.9 Acute kidney failure, unspecified; I49.9 Cardiac arrhythmia, unspecified
CPT/HCPCS: 36415; 82306; 82607; 82746; 84443

== ENCOUNTER 2020-12-24 09:01 | Outpatient (REF) | payer MEDICARE, MEDICAID, SELFPAY ==
[2020-12-24 07:17] LABS: MANUAL DIFF FLAG NO
[2020-12-24 07:41] LABS: Basophils Percent Auto 0.3 % (0-2); Eosinophils Absolute Auto 0.2 X10*3/uL (0.0-0.4); Eosinophils Percent Auto 3.2 % (0-4); Hematocrit 41.1 % (42-52); Hemoglobin 12.8 g/dl (14.0-18.0); Imm Gran Abs Auto 0.02 X10*3/uL (0.00-0.03); Imm Gran Pct Auto 0.3 % (0.0-0.4); Lymphocytes Absolute Auto 1.3 X10*3/uL (1.2-4.9); Lymphocytes Percent Auto 17.2 % (20-40); Mean Corpuscular HGB Conc 31.1 g/dl (31.0-36.0); Mean Corpuscular Hemoglobin 29.8 pg (27.0-33.0); Mean Corpuscular Volume 95.6 fL (80-98); Mean Platelet Volume 9.6 fL (9.4-12.4); Monocytes Absolute Auto 0.5 X10*3/uL (0.1-1.2); Monocytes Percent Auto 7.2 % (2-11); Neutrophils Absolute Auto 5.2 X10*3/uL (2.0-8.3); Neutrophils Percent Auto 71.8 % (45-73); Platelet Count 337 X10*3/uL (160-400); Red Cell Distribution Width 16.5 % (11.0-16.0); White Blood Count 7.3 X10*3/uL (4.8-10.8)
[2020-12-24 07:56] LABS: Anion Gap 14 (12-20); Blood Urea Nitrogen 24 mg/dL (9-16); Calcium 8.9 mg/dL (8.4-10.2); Carbon Dioxide 27 mmol/L (22-29); Chloride 107 mmol/L (96-108); Estimated Glomerular Filt Rate > 60; Glucose Random 102 mg/dL (60-115); Potassium 4.7 mmol/L (3.3-5.1); Sodium 143 mmol/L (135-145)
== END 2020-12-24 09:02 | disposition home or self-care (01) ==
LOC: HO.MMNH3L 09:01
PROVIDERS: Visit Provider Family Medicine
DX: M62.511 Muscle wasting and atrophy, not elsewhere classified, right shoulder (principal); F20.9 Schizophrenia, unspecified; I49.9 Cardiac arrhythmia, unspecified
CPT/HCPCS: 36415; 80048; 85025

== ENCOUNTER 2021-01-07 00:31 | Outpatient (REF) | payer MEDICARE, MEDICAID, SELFPAY ==
[2021-01-07 07:26] LABS: MANUAL DIFF FLAG NO
[2021-01-07 07:43] LABS: Basophils Percent Auto 0.3 % (0-2); Eosinophils Absolute Auto 0.3 X10*3/uL (0.0-0.4); Eosinophils Percent Auto 3.2 % (0-4); Hematocrit 40.5 % (42-52); Imm Gran Abs Auto 0.04 X10*3/uL (0.00-0.03); Imm Gran Pct Auto 0.5 % (0.0-0.4); Lymphocytes Absolute Auto 1.4 X10*3/uL (1.2-4.9); Lymphocytes Percent Auto 18.6 % (20-40); Mean Corpuscular HGB Conc 32.1 g/dl (31.0-36.0); Mean Corpuscular Hemoglobin 30.7 pg (27.0-33.0); Mean Corpuscular Volume 95.7 fL (80-98); Mean Platelet Volume 9.6 fL (9.4-12.4); Monocytes Absolute Auto 0.7 X10*3/uL (0.1-1.2); Monocytes Percent Auto 8.5 % (2-11); Neutrophils Absolute Auto 5.3 X10*3/uL (2.0-8.3); Neutrophils Percent Auto 68.9 % (45-73); Platelet Count 323 X10*3/uL (160-400); Red Blood Count 4.23 X10*6/uL (4.60-5.80); Red Cell Distribution Width 16.7 % (11.0-16.0); White Blood Count 7.7 X10*3/uL (4.8-10.8)
[2021-01-07 08:19] LABS: Anion Gap 12 (12-20); Blood Urea Nitrogen 18 mg/dL (9-16); Calcium 9.1 mg/dL (8.4-10.2); Carbon Dioxide 29 mmol/L (22-29); Chloride 104 mmol/L (96-108); Estimated Glomerular Filt Rate > 60; Glucose Random 95 mg/dL (60-115); Potassium 4.8 mmol/L (3.3-5.1); Sodium 140 mmol/L (135-145)
== END 2021-01-07 00:32 | disposition home or self-care (01) ==
LOC: HO.MMNH3L 00:31
PROVIDERS: Visit Provider Family Medicine
DX: M62.511 Muscle wasting and atrophy, not elsewhere classified, right shoulder (principal); F20.9 Schizophrenia, unspecified; I49.9 Cardiac arrhythmia, unspecified
CPT/HCPCS: 36415; 80048; 85025

== ENCOUNTER 2021-01-14 01:07 | Outpatient (REF) | payer MEDICARE, MEDICAID, SELFPAY ==
[2021-01-14 06:34] LABS: MANUAL DIFF FLAG NO
[2021-01-14 07:05] LABS: Basophils Percent Auto 0.4 % (0-2); Eosinophils Absolute Auto 0.2 X10*3/uL (0.0-0.4); Eosinophils Percent Auto 2.9 % (0-4); Hematocrit 37.6 % (42-52); Hemoglobin 11.9 g/dl (14.0-18.0); Imm Gran Abs Auto 0.04 X10*3/uL (0.00-0.03); Imm Gran Pct Auto 0.5 % (0.0-0.4); Lymphocytes Absolute Auto 1.8 X10*3/uL (1.2-4.9); Lymphocytes Percent Auto 22.3 % (20-40); Mean Corpuscular HGB Conc 31.6 g/dl (31.0-36.0); Mean Corpuscular Hemoglobin 30.7 pg (27.0-33.0); Mean Corpuscular Volume 97.2 fL (80-98); Mean Platelet Volume 9.4 fL (9.4-12.4); Monocytes Absolute Auto 0.8 X10*3/uL (0.1-1.2); Monocytes Percent Auto 9.2 % (2-11); Neutrophils Absolute Auto 5.3 X10*3/uL (2.0-8.3); Neutrophils Percent Auto 64.7 % (45-73); Platelet Count 311 X10*3/uL (160-400); Red Blood Count 3.87 X10*6/uL (4.60-5.80); White Blood Count 8.2 X10*3/uL (4.8-10.8)
[2021-01-14 07:28] LABS: Anion Gap 11 (12-20); Blood Urea Nitrogen 22 mg/dL (9-16); Calcium 8.8 mg/dL (8.4-10.2); Carbon Dioxide 31 mmol/L (22-29); Chloride 106 mmol/L (96-108); Estimated Glomerular Filt Rate > 60; Glucose Random 97 mg/dL (60-115); Potassium 4.7 mmol/L (3.3-5.1); Sodium 143 mmol/L (135-145)
== END 2021-01-14 01:08 | disposition home or self-care (01) ==
LOC: HO.MMNH3L 01:07
PROVIDERS: Visit Provider Family Medicine
DX: F20.9 Schizophrenia, unspecified (principal); I49.9 Cardiac arrhythmia, unspecified; M62.511 Muscle wasting and atrophy, not elsewhere classified, right shoulder
CPT/HCPCS: 36415; 80048; 85025

== ENCOUNTER 2021-01-21 06:45 | Outpatient (REF) | payer MEDICARE, MEDICAID, SELFPAY ==
[2021-01-21 07:01] LABS: MANUAL DIFF FLAG NO
[2021-01-21 07:18] LABS: Basophils Percent Auto 0.3 % (0-2); Eosinophils Absolute Auto 0.2 X10*3/uL (0.0-0.4); Eosinophils Percent Auto 2.1 % (0-4); Hematocrit 39.4 % (42-52); Hemoglobin 12.4 g/dl (14.0-18.0); Imm Gran Abs Auto 0.05 X10*3/uL (0.00-0.03); Imm Gran Pct Auto 0.5 % (0.0-0.4); Lymphocytes Absolute Auto 1.5 X10*3/uL (1.2-4.9); Lymphocytes Percent Auto 13.9 % (20-40); Mean Corpuscular HGB Conc 31.5 g/dl (31.0-36.0); Mean Corpuscular Hemoglobin 30.6 pg (27.0-33.0); Mean Corpuscular Volume 97.3 fL (80-98); Mean Platelet Volume 9.6 fL (9.4-12.4); Monocytes Absolute Auto 0.9 X10*3/uL (0.1-1.2); Monocytes Percent Auto 8.4 % (2-11); Neutrophils Absolute Auto 8.1 X10*3/uL (2.0-8.3); Neutrophils Percent Auto 74.8 % (45-73); Platelet Count 340 X10*3/uL (160-400); Red Blood Count 4.05 X10*6/uL (4.60-5.80); Red Cell Distribution Width 16.9 % (11.0-16.0); White Blood Count 10.8 X10*3/uL (4.8-10.8)
[2021-01-21 07:41] LABS: Anion Gap 14 (12-20); Blood Urea Nitrogen 22 mg/dL (9-16); Calcium 8.9 mg/dL (8.4-10.2); Carbon Dioxide 28 mmol/L (22-29); Chloride 106 mmol/L (96-108); Estimated Glomerular Filt Rate > 60; Glucose Random 90 mg/dL (60-115); Potassium 4.8 mmol/L (3.3-5.1); Sodium 143 mmol/L (135-145)
== END 2021-01-21 06:46 | disposition home or self-care (01) ==
LOC: HO.MMNH3L 06:45
PROVIDERS: Visit Provider Family Medicine
DX: M62.511 Muscle wasting and atrophy, not elsewhere classified, right shoulder (principal); F20.9 Schizophrenia, unspecified; I49.9 Cardiac arrhythmia, unspecified
CPT/HCPCS: 36415; 80048; 85025

== ENCOUNTER 2021-01-28 00:43 | Outpatient (REF) | payer MEDICARE, MEDICAID, SELFPAY ==
[2021-01-28 06:22] LABS: MANUAL DIFF FLAG NO
[2021-01-28 06:48] LABS: Basophils Percent Auto 0.2 % (0-2); Eosinophils Absolute Auto 0.2 X10*3/uL (0.0-0.4); Eosinophils Percent Auto 2.5 % (0-4); Hematocrit 42.1 % (42-52); Hemoglobin 13.3 g/dl (14.0-18.0); Imm Gran Abs Auto 0.03 X10*3/uL (0.00-0.03); Imm Gran Pct Auto 0.3 % (0.0-0.4); Lymphocytes Absolute Auto 1.7 X10*3/uL (1.2-4.9); Lymphocytes Percent Auto 19.1 % (20-40); Mean Corpuscular HGB Conc 31.6 g/dl (31.0-36.0); Mean Corpuscular Hemoglobin 30.6 pg (27.0-33.0); Mean Platelet Volume 9.9 fL (9.4-12.4); Monocytes Absolute Auto 0.7 X10*3/uL (0.1-1.2); Monocytes Percent Auto 7.9 % (2-11); Neutrophils Absolute Auto 6.3 X10*3/uL (2.0-8.3); Platelet Count 336 X10*3/uL (160-400); Red Blood Count 4.34 X10*6/uL (4.60-5.80); Red Cell Distribution Width 16.6 % (11.0-16.0)
[2021-01-28 07:11] LABS: Alanine Aminotransferase 53 U/L (0-40); Albumin Level 3.7 g/dL (3.5-5.0); Alkaline Phosphatase 110 U/L (39-117); Anion Gap 16 (12-20); Aspartate Amino Transferase 33 U/L (5-37); Bilirubin Total 0.4 mg/dL (0.0-1.0); Blood Urea Nitrogen 23 mg/dL (9-16); Calcium 8.8 mg/dL (8.4-10.2); Carbon Dioxide 26 mmol/L (22-29); Chloride 106 mmol/L (96-108); Estimated Glomerular Filt Rate > 60; Glucose Random 92 mg/dL (60-115); Potassium 4.5 mmol/L (3.3-5.1); Sodium 143 mmol/L (135-145); Total Protein 6.6 g/dL (6.5-8.0)
== END 2021-01-28 00:44 | disposition home or self-care (01) ==
LOC: HO.MMNH3L 00:43
PROVIDERS: Visit Provider Family Medicine
DX: M62.511 Muscle wasting and atrophy, not elsewhere classified, right shoulder (principal); F20.9 Schizophrenia, unspecified; I49.9 Cardiac arrhythmia, unspecified
CPT/HCPCS: 36415; 80053; 85025

== ENCOUNTER 2021-02-04 07:08 | Outpatient (REF) | payer MEDICARE, MEDICAID, SELFPAY ==
[2021-02-04 07:19] LABS: MANUAL DIFF FLAG NO
[2021-02-04 07:35] LABS: Basophils Percent Auto 0.3 % (0-2); Eosinophils Absolute Auto 0.2 X10*3/uL (0.0-0.4); Eosinophils Percent Auto 2.1 % (0-4); Hematocrit 41.8 % (42-52); Hemoglobin 13.3 g/dl (14.0-18.0); Imm Gran Abs Auto 0.04 X10*3/uL (0.00-0.03); Imm Gran Pct Auto 0.5 % (0.0-0.4); Lymphocytes Absolute Auto 1.7 X10*3/uL (1.2-4.9); Lymphocytes Percent Auto 19.1 % (20-40); Mean Corpuscular HGB Conc 31.8 g/dl (31.0-36.0); Mean Corpuscular Hemoglobin 31.1 pg (27.0-33.0); Mean Corpuscular Volume 97.9 fL (80-98); Mean Platelet Volume 10.1 fL (9.4-12.4); Monocytes Absolute Auto 0.8 X10*3/uL (0.1-1.2); Monocytes Percent Auto 9.2 % (2-11); Neutrophils Percent Auto 68.8 % (45-73); Platelet Count 302 X10*3/uL (160-400); Red Blood Count 4.27 X10*6/uL (4.60-5.80); Red Cell Distribution Width 16.2 % (11.0-16.0); White Blood Count 8.7 X10*3/uL (4.8-10.8)
[2021-02-04 08:13] LABS: Anion Gap 14 (12-20); Blood Urea Nitrogen 23 mg/dL (9-16); Calcium 9.1 mg/dL (8.4-10.2); Carbon Dioxide 25 mmol/L (22-29); Chloride 107 mmol/L (96-108); Estimated Glomerular Filt Rate > 60; Glucose Random 103 mg/dL (60-115); Potassium 4.8 mmol/L (3.3-5.1); Sodium 141 mmol/L (135-145)
== END 2021-02-04 07:09 | disposition home or self-care (01) ==
LOC: HO.MMNH1L 07:08
PROVIDERS: Visit Provider Family Medicine
DX: Z00.00 Encounter for general adult medical examination without abnormal findings (principal)
CPT/HCPCS: 36415; 80048; 85025

== ENCOUNTER 2021-02-11 05:00 | Outpatient (REF) | payer MEDICARE, MEDICAID, SELFPAY ==
[2021-02-11 06:29] LABS: MANUAL DIFF FLAG NO
[2021-02-11 06:58] LABS: Basophils Percent Auto 0.4 % (0-2); Eosinophils Absolute Auto 0.3 X10*3/uL (0.0-0.4); Eosinophils Percent Auto 3.3 % (0-4); Hematocrit 42.3 % (42-52); Hemoglobin 13.4 g/dl (14.0-18.0); Imm Gran Abs Auto 0.03 X10*3/uL (0.00-0.03); Imm Gran Pct Auto 0.4 % (0.0-0.4); Lymphocytes Absolute Auto 1.7 X10*3/uL (1.2-4.9); Lymphocytes Percent Auto 20.7 % (20-40); Mean Corpuscular HGB Conc 31.7 g/dl (31.0-36.0); Mean Corpuscular Hemoglobin 31.5 pg (27.0-33.0); Mean Corpuscular Volume 99.5 fL (80-98); Mean Platelet Volume 9.7 fL (9.4-12.4); Monocytes Absolute Auto 0.8 X10*3/uL (0.1-1.2); Monocytes Percent Auto 10.1 % (2-11); Neutrophils Absolute Auto 5.3 X10*3/uL (2.0-8.3); Neutrophils Percent Auto 65.1 % (45-73); Platelet Count 284 X10*3/uL (160-400); Red Blood Count 4.25 X10*6/uL (4.60-5.80); Red Cell Distribution Width 15.9 % (11.0-16.0); White Blood Count 8.1 X10*3/uL (4.8-10.8)
[2021-02-11 07:17] LABS: Anion Gap 13 (12-20); Blood Urea Nitrogen 22 mg/dL (9-16); Calcium 9.3 mg/dL (8.4-10.2); Carbon Dioxide 29 mmol/L (22-29); Chloride 107 mmol/L (96-108); Estimated Glomerular Filt Rate > 60; Glucose Random 109 mg/dL (60-115); Potassium 4.6 mmol/L (3.3-5.1); Sodium 144 mmol/L (135-145)
== END 2021-02-11 05:01 ==
LOC: HO.MMNH3L 05:00
PROVIDERS: Visit Provider Family Medicine
DX: M62.511 Muscle wasting and atrophy, not elsewhere classified, right shoulder (principal); F20.9 Schizophrenia, unspecified; I49.9 Cardiac arrhythmia, unspecified
CPT/HCPCS: 36415; 80048; 85025

== ENCOUNTER 2021-02-18 07:45 | Outpatient (REF) | payer MEDICARE, MEDICAID, SELFPAY ==
[2021-02-18 08:25] LABS: Hematocrit 42.4 % (42-52); Hemoglobin 13.1 g/dl (14.0-18.0); Mean Corpuscular HGB Conc 30.9 g/dl (31.0-36.0); Mean Corpuscular Volume 100.2 fL (80-98); Mean Platelet Volume 9.7 fL (9.4-12.4); Platelet Count 323 X10*3/uL (160-400); Red Blood Count 4.23 X10*6/uL (4.60-5.80); Red Cell Distribution Width 15.4 % (11.0-16.0); White Blood Count 8.1 X10*3/uL (4.8-10.8)
[2021-02-18 09:25] LABS: Anion Gap 14 (12-20); Blood Urea Nitrogen 27 mg/dL (9-16); Calcium 9.2 mg/dL (8.4-10.2); Carbon Dioxide 26 mmol/L (22-29); Chloride 109 mmol/L (96-108); Estimated Glomerular Filt Rate > 60; Glucose Random 101 mg/dL (60-115); Potassium 5.1 mmol/L (3.3-5.1); Sodium 144 mmol/L (135-145)
== END 2021-02-18 07:46 | disposition home or self-care (01) ==
LOC: HO.MMNH3L 07:45
PROVIDERS: Visit Provider Family Medicine
DX: M62.511 Muscle wasting and atrophy, not elsewhere classified, right shoulder (principal); I20.9 Angina pectoris, unspecified; I49.9 Cardiac arrhythmia, unspecified
CPT/HCPCS: 36415; 80048; 85027

== ENCOUNTER 2021-02-19 08:40 | Outpatient (REF) | payer MEDICARE, MEDICAID, SELFPAY ==
[2021-02-19 08:45] LABS: MANUAL DIFF FLAG NO
[2021-02-19 09:22] LABS: Basophils Percent Auto 0.4 % (0-2); Eosinophils Absolute Auto 0.2 X10*3/uL (0.0-0.4); Hematocrit 42.2 % (42-52); Hemoglobin 12.8 g/dl (14.0-18.0); Imm Gran Abs Auto 0.04 X10*3/uL (0.00-0.03); Imm Gran Pct Auto 0.5 % (0.0-0.4); Lymphocytes Absolute Auto 1.7 X10*3/uL (1.2-4.9); Mean Corpuscular HGB Conc 30.3 g/dl (31.0-36.0); Mean Corpuscular Hemoglobin 30.5 pg (27.0-33.0); Mean Corpuscular Volume 100.5 fL (80-98); Monocytes Absolute Auto 0.8 X10*3/uL (0.1-1.2); Monocytes Percent Auto 9.8 % (2-11); Neutrophils Percent Auto 64.3 % (45-73); Platelet Count 335 X10*3/uL (160-400); Red Cell Distribution Width 15.4 % (11.0-16.0); White Blood Count 7.7 X10*3/uL (4.8-10.8)
== END 2021-02-19 08:41 | disposition home or self-care (01) ==
LOC: HO.MMNH3L 08:40
PROVIDERS: Visit Provider Family Medicine
DX: N17.9 Acute kidney failure, unspecified (principal); I49.9 Cardiac arrhythmia, unspecified; I31.3 Pericardial effusion (noninflammatory)
CPT/HCPCS: 36415; 85025

== ENCOUNTER 2021-03-04 00:30 | Outpatient (REF) | payer MEDICARE, MEDICAID, SELFPAY ==
[2021-03-04 07:09] LABS: MANUAL DIFF FLAG NO
[2021-03-04 07:38] LABS: Basophils Percent Auto 0.3 % (0-2); Eosinophils Absolute Auto 0.3 X10*3/uL (0.0-0.4); Eosinophils Percent Auto 2.7 % (0-4); Hematocrit 44.3 % (42-52); Hemoglobin 13.8 g/dl (14.0-18.0); Imm Gran Abs Auto 0.08 X10*3/uL (0.00-0.03); Imm Gran Pct Auto 0.7 % (0.0-0.4); Lymphocytes Absolute Auto 2.4 X10*3/uL (1.2-4.9); Lymphocytes Percent Auto 22.4 % (20-40); Mean Corpuscular HGB Conc 31.2 g/dl (31.0-36.0); Mean Corpuscular Hemoglobin 31.2 pg (27.0-33.0); Mean Platelet Volume 9.6 fL (9.4-12.4); Monocytes Absolute Auto 0.9 X10*3/uL (0.1-1.2); Monocytes Percent Auto 8.6 % (2-11); Neutrophils Percent Auto 65.3 % (45-73); Platelet Count 378 X10*3/uL (160-400); Red Blood Count 4.43 X10*6/uL (4.60-5.80); Red Cell Distribution Width 14.6 % (11.0-16.0); White Blood Count 10.8 X10*3/uL (4.8-10.8)
[2021-03-04 08:13] LABS: Anion Gap 12 (12-20); Blood Urea Nitrogen 25 mg/dL (9-16); Calcium 9.5 mg/dL (8.4-10.2); Carbon Dioxide 29 mmol/L (22-29); Chloride 107 mmol/L (96-108); Estimated Glomerular Filt Rate > 60; Glucose Random 90 mg/dL (60-115); Potassium 5.5 mmol/L (3.3-5.1); Sodium 142 mmol/L (135-145)
== END 2021-03-04 00:31 | disposition home or self-care (01) ==
LOC: HO.MMNH3L 00:30
PROVIDERS: Visit Provider Family Medicine
DX: M62.511 Muscle wasting and atrophy, not elsewhere classified, right shoulder (principal); F20.9 Schizophrenia, unspecified; I49.9 Cardiac arrhythmia, unspecified
CPT/HCPCS: 36415; 80048; 85025

== ENCOUNTER 2021-03-18 00:43 | Outpatient (REF) | payer MEDICARE, MEDICAID, SELFPAY ==
[2021-03-18 07:48] LABS: MANUAL DIFF FLAG NO
[2021-03-18 08:15] LABS: Basophils Percent Auto 0.4 % (0-2); Eosinophils Absolute Auto 0.3 X10*3/uL (0.0-0.4); Eosinophils Percent Auto 3.4 % (0-4); Hematocrit 42.1 % (42-52); Hemoglobin 13.2 g/dl (14.0-18.0); Imm Gran Abs Auto 0.03 X10*3/uL (0.00-0.03); Imm Gran Pct Auto 0.4 % (0.0-0.4); Lymphocytes Absolute Auto 1.8 X10*3/uL (1.2-4.9); Lymphocytes Percent Auto 21.6 % (20-40); Mean Corpuscular HGB Conc 31.4 g/dl (31.0-36.0); Mean Corpuscular Hemoglobin 31.2 pg (27.0-33.0); Mean Corpuscular Volume 99.5 fL (80-98); Mean Platelet Volume 10.1 fL (9.4-12.4); Monocytes Absolute Auto 0.9 X10*3/uL (0.1-1.2); Neutrophils Absolute Auto 5.2 X10*3/uL (2.0-8.3); Neutrophils Percent Auto 63.2 % (45-73); Platelet Count 303 X10*3/uL (160-400); Red Blood Count 4.23 X10*6/uL (4.60-5.80); Red Cell Distribution Width 14.5 % (11.0-16.0); White Blood Count 8.2 X10*3/uL (4.8-10.8)
[2021-03-18 08:32] LABS: Anion Gap 12 (12-20); Blood Urea Nitrogen 21 mg/dL (9-16); Calcium 8.7 mg/dL (8.4-10.2); Carbon Dioxide 25 mmol/L (22-29); Chloride 108 mmol/L (96-108); Estimated Glomerular Filt Rate > 60; Glucose Random 89 mg/dL (60-115); Potassium 4.3 mmol/L (3.3-5.1); Sodium 141 mmol/L (135-145)
== END 2021-03-18 00:44 | disposition home or self-care (01) ==
LOC: HO.MMNH3L 00:43
PROVIDERS: Visit Provider Family Medicine
DX: M62.511 Muscle wasting and atrophy, not elsewhere classified, right shoulder (principal); F20.9 Schizophrenia, unspecified; I49.9 Cardiac arrhythmia, unspecified
CPT/HCPCS: 36415; 80048; 85025

== ENCOUNTER 2021-03-23 06:06 | Outpatient (REF) | payer MEDICARE, MEDICAID, SELFPAY ==
[2021-03-23 07:04] LABS: Cholesterol 159 mg/dL; HDL Cholesterol 44 mg/dL; LDL Cholesterol Calculated 101 mg/dl; Triglycerides 74 mg/dL
== END 2021-03-23 06:07 | disposition home or self-care (01) ==
LOC: HO.MMNH3L 06:06
PROVIDERS: Visit Provider Family Medicine
DX: N13.9 Obstructive and reflux uropathy, unspecified (principal); I31.3 Pericardial effusion (noninflammatory); N40.1 Benign prostatic hyperplasia with lower urinary tract symptoms
CPT/HCPCS: 36415; 80061

== ENCOUNTER 2021-04-02 00:33 | Outpatient (REF) | payer MEDICARE, MEDICAID, SELFPAY ==
[2021-04-02 07:02] LABS: MANUAL DIFF FLAG NO
[2021-04-02 07:22] LABS: Basophils Percent Auto 0.4 % (0-2); Eosinophils Absolute Auto 0.2 X10*3/uL (0.0-0.4); Eosinophils Percent Auto 2.7 % (0-4); Hematocrit 45.2 % (42-52); Hemoglobin 14.5 g/dl (14.0-18.0); Imm Gran Abs Auto 0.02 X10*3/uL (0.00-0.03); Imm Gran Pct Auto 0.2 % (0.0-0.4); Lymphocytes Absolute Auto 1.5 X10*3/uL (1.2-4.9); Lymphocytes Percent Auto 18.1 % (20-40); Mean Corpuscular HGB Conc 32.1 g/dl (31.0-36.0); Mean Corpuscular Hemoglobin 31.3 pg (27.0-33.0); Mean Corpuscular Volume 97.6 fL (80-98); Mean Platelet Volume 9.5 fL (9.4-12.4); Monocytes Absolute Auto 0.8 X10*3/uL (0.1-1.2); Monocytes Percent Auto 9.6 % (2-11); Neutrophils Absolute Auto 5.9 X10*3/uL (2.0-8.3); Platelet Count 275 X10*3/uL (160-400); Red Blood Count 4.63 X10*6/uL (4.60-5.80); Red Cell Distribution Width 14.4 % (11.0-16.0); White Blood Count 8.5 X10*3/uL (4.8-10.8)
[2021-04-02 07:27] LABS: Anion Gap 12 (12-20); Blood Urea Nitrogen 20 mg/dL (9-16); Calcium 9.4 mg/dL (8.4-10.2); Carbon Dioxide 28 mmol/L (22-29); Chloride 107 mmol/L (96-108); Estimated Glomerular Filt Rate > 60; Glucose Random 98 mg/dL (60-115); Potassium 4.8 mmol/L (3.3-5.1); Sodium 142 mmol/L (135-145)
== END 2021-04-02 00:34 | disposition home or self-care (01) ==
LOC: HO.MMNH3L 00:33
PROVIDERS: Visit Provider Family Medicine
DX: M62.511 Muscle wasting and atrophy, not elsewhere classified, right shoulder (principal); F20.9 Schizophrenia, unspecified; I49.9 Cardiac arrhythmia, unspecified
CPT/HCPCS: 36415; 80048; 85025

== ENCOUNTER 2021-04-15 00:35 | Outpatient (REF) | payer MEDICARE, MEDICAID, SELFPAY ==
[2021-04-15 06:35] LABS: MANUAL DIFF FLAG NO
[2021-04-15 07:02] LABS: Basophils Percent Auto 0.3 % (0-2); Eosinophils Absolute Auto 0.2 X10*3/uL (0.0-0.4); Eosinophils Percent Auto 1.4 % (0-4); Hematocrit 41.2 % (42-52); Imm Gran Abs Auto 0.05 X10*3/uL (0.00-0.03); Imm Gran Pct Auto 0.4 % (0.0-0.4); Lymphocytes Absolute Auto 1.6 X10*3/uL (1.2-4.9); Lymphocytes Percent Auto 13.5 % (20-40); Mean Corpuscular HGB Conc 31.6 g/dl (31.0-36.0); Mean Corpuscular Hemoglobin 30.8 pg (27.0-33.0); Mean Corpuscular Volume 97.6 fL (80-98); Mean Platelet Volume 9.8 fL (9.4-12.4); Monocytes Absolute Auto 0.8 X10*3/uL (0.1-1.2); Monocytes Percent Auto 6.6 % (2-11); Neutrophils Absolute Auto 8.9 X10*3/uL (2.0-8.3); Neutrophils Percent Auto 77.8 % (45-73); Platelet Count 314 X10*3/uL (160-400); Red Blood Count 4.22 X10*6/uL (4.60-5.80); Red Cell Distribution Width 14.1 % (11.0-16.0); White Blood Count 11.4 X10*3/uL (4.8-10.8)
[2021-04-15 07:49] LABS: Blood Urea Nitrogen 28 mg/dL (9-16); Calcium 8.9 mg/dL (8.4-10.2); Estimated Glomerular Filt Rate > 60; Glucose Random 97 mg/dL (60-115)
[2021-04-15 08:02] LABS: Anion Gap 16 (12-20); Carbon Dioxide 23 mmol/L (22-29); Chloride 109 mmol/L (96-108); Potassium 4.8 mmol/L (3.3-5.1); Sodium 143 mmol/L (135-145)
== END 2021-04-15 00:36 | disposition home or self-care (01) ==
LOC: HO.MMNH3L 00:35
PROVIDERS: Visit Provider Family Medicine
DX: M62.511 Muscle wasting and atrophy, not elsewhere classified, right shoulder (principal); F20.9 Schizophrenia, unspecified; I49.9 Cardiac arrhythmia, unspecified
CPT/HCPCS: 36415; 80048; 85025

== ENCOUNTER 2021-04-29 00:37 | Outpatient (REF) | payer MEDICARE, MEDICAID, SELFPAY ==
[2021-04-29 05:59] LABS: MANUAL DIFF FLAG NO
[2021-04-29 06:14] LABS: Basophils Percent Auto 0.4 % (0-2); Eosinophils Absolute Auto 0.3 X10*3/uL (0.0-0.4); Eosinophils Percent Auto 3.2 % (0-4); Hematocrit 39.9 % (42-52); Hemoglobin 12.6 g/dl (14.0-18.0); Imm Gran Abs Auto 0.03 X10*3/uL (0.00-0.03); Imm Gran Pct Auto 0.4 % (0.0-0.4); Lymphocytes Absolute Auto 1.9 X10*3/uL (1.2-4.9); Lymphocytes Percent Auto 23.6 % (20-40); Mean Corpuscular HGB Conc 31.6 g/dl (31.0-36.0); Mean Corpuscular Volume 98.3 fL (80-98); Mean Platelet Volume 9.7 fL (9.4-12.4); Monocytes Absolute Auto 0.8 X10*3/uL (0.1-1.2); Monocytes Percent Auto 9.9 % (2-11); Neutrophils Percent Auto 62.5 % (45-73); Platelet Count 286 X10*3/uL (160-400); Red Blood Count 4.06 X10*6/uL (4.60-5.80); Red Cell Distribution Width 14.4 % (11.0-16.0)
[2021-04-29 06:27] LABS: Anion Gap 9 (12-20); Blood Urea Nitrogen 27 mg/dL (9-16); Carbon Dioxide 28 mmol/L (22-29); Chloride 111 mmol/L (96-108); Estimated Glomerular Filt Rate > 60; Glucose Random 90 mg/dL (60-115); Potassium 4.8 mmol/L (3.3-5.1); Sodium 143 mmol/L (135-145)
== END 2021-04-29 00:38 | disposition home or self-care (01) ==
LOC: HO.MMNH3L 00:37
PROVIDERS: Visit Provider Family Medicine
DX: M62.511 Muscle wasting and atrophy, not elsewhere classified, right shoulder (principal); F20.9 Schizophrenia, unspecified; I49.9 Cardiac arrhythmia, unspecified
CPT/HCPCS: 36415; 80048; 85025

== ENCOUNTER 2021-05-09 06:46 | Outpatient (REF) | payer MEDICARE, MEDICAID, SELFPAY ==
[2021-05-09 08:52] LABS: Free T4 (Free Thyroxine) 0.93 ng/dL (0.71-1.85); Thyroid Stimulating Hormone 0.58 uIU/mL (0.32-4.0)
== END 2021-05-09 06:47 | disposition home or self-care (01) ==
LOC: HO.MMNH3L 06:46
PROVIDERS: Visit Provider Family Medicine
DX: N17.9 Acute kidney failure, unspecified (principal); I31.3 Pericardial effusion (noninflammatory); N40.1 Benign prostatic hyperplasia with lower urinary tract symptoms
CPT/HCPCS: 36415; 84439; 84443

== ENCOUNTER 2021-05-13 | Outpatient (REF) | payer MEDICARE, MEDICAID, SELFPAY ==
[2021-05-13 07:19] LABS: MANUAL DIFF FLAG NO
[2021-05-13 07:33] LABS: Basophils Percent Auto 0.3 % (0-2); Eosinophils Absolute Auto 0.3 X10*3/uL (0.0-0.4); Eosinophils Percent Auto 2.8 % (0-4); Hemoglobin 12.5 g/dl (14.0-18.0); Imm Gran Abs Auto 0.05 X10*3/uL (0.00-0.03); Imm Gran Pct Auto 0.5 % (0.0-0.4); Lymphocytes Absolute Auto 1.6 X10*3/uL (1.2-4.9); Lymphocytes Percent Auto 17.9 % (20-40); Mean Corpuscular HGB Conc 32.1 g/dl (31.0-36.0); Mean Corpuscular Hemoglobin 31.4 pg (27.0-33.0); Mean Platelet Volume 9.6 fL (9.4-12.4); Neutrophils Absolute Auto 6.2 X10*3/uL (2.0-8.3); Neutrophils Percent Auto 67.5 % (45-73); Platelet Count 348 X10*3/uL (160-400); Red Blood Count 3.98 X10*6/uL (4.60-5.80); Red Cell Distribution Width 14.6 % (11.0-16.0); White Blood Count 9.2 X10*3/uL (4.8-10.8)
[2021-05-13 07:57] LABS: Anion Gap 13 (12-20); Blood Urea Nitrogen 23 mg/dL (9-16); Calcium 9.1 mg/dL (8.4-10.2); Carbon Dioxide 25 mmol/L (22-29); Chloride 109 mmol/L (96-108); Estimated Glomerular Filt Rate > 60; Glucose Random 91 mg/dL (60-115); Potassium 5.1 mmol/L (3.3-5.1); Sodium 142 mmol/L (135-145)
== END 2021-05-13 00:01 | disposition home or self-care (01) ==
LOC: HO.MMNH3L
PROVIDERS: Visit Provider Family Medicine
DX: M62.511 Muscle wasting and atrophy, not elsewhere classified, right shoulder (principal); F20.9 Schizophrenia, unspecified; I49.9 Cardiac arrhythmia, unspecified
CPT/HCPCS: 36415; 80048; 85025

== ENCOUNTER 2021-05-19 13:16 | Inpatient (IN) | payer MEDICARE, MEDICAID, SELFPAY ==
[2021-05-19] VITALS (8 sets, daily range): BP systolic 107–131; BP diastolic 67–80; PULSE 81–110; RESP 18–28; TEMP 36.1–38.1; O2SAT 96–98; BMI 18.3
--- NOTE | ~2021-05-19 | XR_ITS ---
EXAMINATION: RIGHT HIP AND CHEST. CLINICAL INFORMATION: Ecchymosis and also. COMPARISON: None TECHNIQUE: Chest one view. Right hip and AP pelvis 3 views. FINDINGS: Right hip and AP pelvis: There is normal symmetry of both hip joints and SI joints. No fracture involving the pelvic bones. AP and frog-leg views of right hip reveal no fracture or subchondral changes. The soft tissues are normal. CHEST: The lungs are well-expanded and clear. There is mild elevation of left hemidiaphragm The heart size and pulmonary vascularity is normal. Mild atelectatic changes are seen in the lingula. No gross bony abnormality seen. XR/XR hip RT w PEL1V IMPRESSION: No acute fracture or dislocation AP pelvis or right hip. Minimal atelectatic changes in the lingula.
--- NOTE | ~2021-05-19 | XR_ITS ---
EXAMINATION: RIGHT HIP AND CHEST. CLINICAL INFORMATION: Ecchymosis and also. COMPARISON: None TECHNIQUE: Chest one view. Right hip and AP pelvis 3 views. FINDINGS: Right hip and AP pelvis: There is normal symmetry of both hip joints and SI joints. No fracture involving the pelvic bones. AP and frog-leg views of right hip reveal no fracture or subchondral changes. The soft tissues are normal. CHEST: The lungs are well-expanded and clear. There is mild elevation of left hemidiaphragm The heart size and pulmonary vascularity is normal. Mild atelectatic changes are seen in the lingula. No gross bony abnormality seen. XR/XR chest 1V IMPRESSION: No acute fracture or dislocation AP pelvis or right hip. Minimal atelectatic changes in the lingula.
--- NOTE | 2021-05-19 14:05 | ECG_ITS ---
Test Reason : [employer] Blood Pressure : / mmHG Vent. Rate : 109 BPM Atrial Rate : 109 BPM P-R Int : 128 ms QRS Dur : 108 ms QT Int : 364 ms P-R-T Axes : 054 -42 075 degrees QTc Int : 490 ms Sinus tachycardia with Premature supraventricular complexes Possible Left atrial enlargement Left axis deviation Abnormal ECG When compared with ECG of 21-SEP-2020 19:53, ST now depressed in Lateral leads Referred By: Lilly Oquendo Electronically Signed By:Lucien Dao
[2021-05-19] MEDS: 0.9 % Sodium Chloride 1,000 ML 999 ML IVCONT ×2 (14:37→16:24)
[2021-05-19 14:43] LABS: MANUAL DIFF FLAG NO
[2021-05-19 14:44] LABS: Basophils Percent Auto 0.2 % (0-2); Eosinophils Percent Auto 0.1 % (0-4); Hematocrit 41.3 % (42-52); Imm Gran Abs Auto 0.04 X10*3/uL (0.00-0.03); Imm Gran Pct Auto 0.3 % (0.0-0.4); Lymphocytes Absolute Auto 0.5 X10*3/uL (1.2-4.9); Lymphocytes Percent Auto 3.8 % (20-40); Mean Corpuscular HGB Conc 31.5 g/dl (31.0-36.0); Mean Corpuscular Volume 98.6 fL (80-98); Mean Platelet Volume 9.3 fL (9.4-12.4); Monocytes Percent Auto 7.9 % (2-11); Neutrophils Absolute Auto 10.9 X10*3/uL (2.0-8.3); Neutrophils Percent Auto 87.7 % (45-73); Platelet Count 331 X10*3/uL (160-400); Red Blood Count 4.19 X10*6/uL (4.60-5.80); Red Cell Distribution Width 15.5 % (11.0-16.0); White Blood Count 12.4 X10*3/uL (4.8-10.8)
[2021-05-19 15:00] LABS: Lactic Acid 1.9 mmol/L (0.5-2.0)
[2021-05-19 15:02] LABS: COVID-19 Test Negative (Negative)
--- NOTE | 2021-05-19 15:02 | ED.GENADULT ---
HPI - General Adult General Chief complaint: General Medical Stated complaint: FALLS,WEAKNESS,UNABLE TO CARE FOR SELF PER FAMILY Time Seen by Provider: 05/19/21 13:53 Source: patient, family and EMS Mode of arrival: EMS History of Present Illness HPI narrative: 66-year-old male with a past medical history of hernia, psychosis, schizophrenia, PTSD, poor historian, recently discharged from [facility] 4 days ago BIBA for generalized deconditioning, generalized weakness/fatigue and inability to care for himself at home. Per brother patient has been unable to ambulate/get out of bed has been found on the floor multiple times where brother has had to aid him to get up. At this time found soiled in his own urine/feces. Patient denies CP/SOB, abdominal pain, nausea/vomiting, dysuria/hematuria, fever, chills Onset (ago): day(s) Related Data Home Medications Medication Instructions Recorded Confirmed baclofen 10 mg PO BID 09/22/20 11/06/20 bisacodyl [Dulcolax (bisacodyl)] 10 mg PA DAILY PRN 09/22/20 11/06/20 clotrimazole 1 applic TOPICAL TID PRN 09/22/20 11/06/20 clozapine 400 mg PO BEDTIME 09/22/20 09/22/20 magnesium hydroxide [Milk of 30 ml PO DAILY PRN 09/22/20 11/06/20 Magnesia] nicotine [Nicoderm CQ] 1 patch TRANSDERMAL DAILY 09/22/20 11/06/20 simvastatin 10 mg PO DAILY 09/22/20 11/06/20 tamsulosin [Flomax] 0.4 mg PO DAILY 09/22/20 11/06/20 Allergies Allergy/AdvReac Type Severity Reaction Status Date / Time No Known Allergies Allergy Verified 05/19/21 13:22 Review of Systems Review of Systems: Constitutional: No Fever, No Chills, + Fatigue, No Malaise ENT/Mouth: No Ear Pain, No Nasal Congestion, No sore throat Eyes: No Eye Pain Cardiovascular: No Chest Pain, No SOB Respiratory: No Cough, No Dyspnea Gastrointestinal: No Nausea, No Vomiting, No Diarrhea, No Constipation, No Abdominal pain Genitourinary: No Dysuria, No Urinary Frequency, No Hematuria, No Flank Pain Musculoskeletal: No joint pain, No Myalgias, No Joint Swelling Skin: + Skin Lesions, No rash Neuro: + Weakness, No Numbness, No Loss of Consciousness, No Headache Yes all other systems are reviewed and are negative [facility] Past Medical History Attestation statement: The following information was validated with the patient. Medical History (Updated 05/19/21 @ 17:17 by ROJAS Sue) Hernia Poor historian Post traumatic stress disorder (PTSD) Psychosis Schizophrenia Social History Social History Household Members: Family Household Members Other:: BROTHER Housing: House Do you presently have visiting nurse or other home services: No Alcohol intake: unknown Patient Tobacco Use Status: Former Tobacco user Cigarette Packs Per Day: 1 Cigarettes Per Day: 20.0 Years Smoked: 45 Second Hand Smoke Exposure: No Use of substances other than those prescribed or required for medical reasons: No Advance Directives: No Advance Directives Information Provided: No service: Yes Current occupational status: employed Physical Exam Vital Signs: Vital Signs: Last Vital Signs Temp 99.1 F 05/19/21 13:22 Pulse 104 H 05/19/21 13:22 Resp 18 05/19/21 13:22 BP 114/74 05/19/21 13:22 Pulse Ox 97 05/19/21 13:22 Body Mass Index 18.3 Const: Other: Poor hygiene Nutritional Appearance: malnourished Orientation/consciousness: patient oriented x3 Limitations: no limitations HENMT: Head: Yes normal to inspection Ears: hearing grossly normal bilaterally General nose exam: Normal external nose present Face and sinus: Yes normal facial exam Eyes: General: appearance normal, both eyes and all related structures Pupils: Equal, round and reactive pupils present EOM: EOMs intact bilaterally Neck: Neck: Yes normal visual inspection and Yes no meningeal signs Resp: Effort & Inspection: normal respiratory effort Auscultation: clear to auscultation bilaterally and no wheezes Cardio: Rate: regular rate Heart sounds: S1 normal heart sound present and S2 normal heart sound present GI: Inspection: Yes normal to inspection Palpation (GI): Soft to palpation, nontender, no guarding and not rigid Skin: Other: Please refer to image is above Sacral wounds/ulcers noted with skin breakdown. No fluctuance/induration. + black necrotic wound noted to right hip with malodor Multiple abrasions/skin tears noted to bilateral lower extremities Rashes: no rashes Neuro: General: patient oriented x3, tone normal, moves all extremities, no meningeal signs, no focal motor deficits and CN's II-XI intact bilaterally Cranial nerves: Yes Equal, round and reactive pupils present Motor exam (neuro): 5/5 motor strength present throughout and Pronator motor function not present Extrem: Other: Healing ecchymosis noted to right hip. Nontender. Full range of motion intact. General: Yes normal to inspection and Yes no pedal edema Course Course Course Narrative: XR hip RT w PEL1V IMPRESSION: No acute fracture or dislocation AP pelvis or right hip. XR chest 1V Minimal atelectatic changes in the lingula. -leukocytosis 12.4, H/H stable, hypernatremia, CPK 251, troponin 10.1 >will obtain 3 hour repeat >> plan to admit for further management Medical Decision Making [facility] Narrative Medical decision making narrative: 66-year-old male with a past medical history of hernia, psychosis, schizophrenia, PTSD, poor historian, recently discharged from [facility] 4 days ago [facility] for generalized deconditioning, generalized weakness/fatigue and inability to care for himself at home. On exam mildly tachycardic, A&O x3, no focal neuro deficits multiple ulcerations/skin wounds noted to sacrum/bilateral lower extremities. Concern for metabolic/infectious etiology vs osteomyelitis/infected wounds vs dehydration Plan: EKG, labs, UA, CXR, x-ray, IVF, reassess, PT/case management consult Lab Data Result diagrams: 05/19/21 14:35 05/19/21 14:35 Labs: Lab Results 05/19/21 05/19/21 05/19/21 Range/Units 14:35 14:35 14:35 WBC 12.4 H (4.8-10.8) X10*3/uL RBC 4.19 L (4.60-5.80) X10*6/uL Hgb 13.0 L (14.0-18.0) g/dl Hct 41.3 L (42-52) % MCV 98.6 H (80-98) fL MCH 31.0 (27.0-33.0) pg MCHC 31.5 (31.0-36.0) g/dl RDW 15.5 (11.0-16.0) % Plt Count 331 (160-400) X10*3/uL MPV 9.3 L (9.4-12.4) fL Immature Gran % (Auto) 0.3 (0.0-0.4) % Neut % (Auto) 87.7 H (45-73) % Lymph % (Auto) 3.8 L (20-40) % [place] % (Auto) 7.9 (2-11) % Eos % (Auto) 0.1 (0-4) % Baso % (Auto) 0.2 (0-2) % Lymph # (Auto) 0.5 L (1.2-4.9) X10*3/uL [place] # (Auto) 1.0 (0.1-1.2) X10*3/uL Eos # (Auto) 0.0 (0.0-0.4) X10*3/uL Baso # (Auto) 0.0 (0.0-0.2) X10*3/uL Abs Immat Gran (auto) 0.04 H (0.00-0.03) X10*3/uL Absolute Neuts (auto) 10.9 H (2.0-8.3) X10*3/uL Absolute Nucleated RBC 0.000 (0.0-0.012) X10*3/uL Nucleated RBC % (auto) 0.0 (0.0-0.2) /100WBC Sodium 152 H (135-145) mmol/L Potassium 3.7 D (3.3-5.1) mmol/L Chloride 116 H (96-108) mmol/L Carbon Dioxide 26 (22-29) mmol/L Anion Gap 14 (12-20) BUN 34 H (9-16) mg/dL Creatinine 0.74 (0.5-1.4) mg/dL Estim Creat Clear Calc 73.8 Estimated GFR > 60 Random Glucose 91 (60-115) mg/dL Lactic Acid (0.5-2.0) mmol/L Calcium 9.2 (8.4-10.2) mg/dL Magnesium 2.2 (1.6-2.6) mg/dL Total Bilirubin 0.8 (0.0-1.0) mg/dL Direct Bilirubin 0.3 (0.0-0.5) mg/dL AST 20 (5-37) U/L ALT 18 (0-40) U/L Alkaline Phosphatase 125 H (39-117) U/L Total Creatine Kinase 251 H (38-174) U/L Troponin I High Sens (<3.5-35.0) ng/L Total Protein 6.9 (6.5-8.0) g/dL Albumin 3.8 (3.5-5.0) g/dL COVID-19 (ZAN) Negative (Negative) COVID-19 Clin Com See Note 05/19/21 05/19/21 Range/Units 14:35 14:35 WBC (4.8-10.8) X10*3/uL RBC (4.60-5.80) X10*6/uL Hgb (14.0-18.0) g/dl Hct (42-52) % MCV (80-98) fL MCH (27.0-33.0) pg MCHC (31.0-36.0) g/dl RDW (11.0-16.0) % Plt Count (160-400) X10*3/uL MPV (9.4-12.4) fL Immature Gran % (Auto) (0.0-0.4) % Neut % (Auto) (45-73) % Lymph % (Auto) (20-40) % [place] % (Auto) (2-11) % Eos % (Auto) (0-4) % Baso % (Auto) (0-2) % Lymph # (Auto) (1.2-4.9) X10*3/uL [place] # (Auto) (0.1-1.2) X10*3/uL Eos # (Auto) (0.0-0.4) X10*3/uL Baso # (Auto) (0.0-0.2) X10*3/uL Abs Immat Gran (auto) (0.00-0.03) X10*3/uL Absolute Neuts (auto) (2.0-8.3) X10*3/uL Absolute Nucleated RBC (0.0-0.012) X10*3/uL Nucleated RBC % (auto) (0.0-0.2) /100WBC Sodium (135-145) mmol/L Potassium (3.3-5.1) mmol/L Chloride (96-108) mmol/L Carbon Dioxide (22-29) mmol/L Anion Gap (12-20) BUN (9-16) mg/dL Creatinine (0.5-1.4) mg/dL Estim Creat Clear Calc Estimated GFR Random Glucose (60-115) mg/dL Lactic Acid 1.9 (0.5-2.0) mmol/L Calcium (8.4-10.2) mg/dL Magnesium (1.6-2.6) mg/dL Total Bilirubin (0.0-1.0) mg/dL Direct Bilirubin (0.0-0.5) mg/dL AST (5-37) U/L ALT (0-40) U/L Alkaline Phosphatase (39-117) U/L Total Creatine Kinase (38-174) U/L Troponin I High Sens 10.1 (<3.5-35.0) ng/L Total Protein (6.5-8.0) g/dL Albumin (3.5-5.0) g/dL COVID-19 (ZAN) (Negative) COVID-19 Clin Com ECG Data Attestation: I personally reviewed and interpreted this ECG as follows: Interpretation: EKG showing sinus tachycardia with rate of 109. Artifact present. QTC 490 Discharge Plan Discharge Clinical Impression: Necrotic eschar, Weakness Patient Disposition: Admitted As Inpatient Prescriptions: No Action nicotine [Nicoderm CQ] 14 mg/24 hr Patch 24 Hour 1 patch TRANSDERMAL DAILY RF: 0 simvastatin 10 mg Tablet 10 mg PO DAILY RF: 0 magnesium hydroxide [Milk of Magnesia] 400 mg/5 mL Suspension 30 ml PO DAILY PRN (Reason: Constipation) RF: 0 tamsulosin [Flomax] 0.4 mg Capsule 0.4 mg PO DAILY RF: 0 baclofen 10 mg Tablet 10 mg PO BID RF: 0 bisacodyl [Dulcolax (bisacodyl)] 10 mg Suppository 10 mg PA DAILY PRN (Reason: Constipation) RF: 0 clotrimazole 1 % Cream 1 applic TOPICAL TID PRN (Reason: Rash) RF: 0 clozapine 200 mg Tablet 400 mg PO BEDTIME RF: 0
[2021-05-19 15:09] LABS: Alanine Aminotransferase 18 U/L (0-40); Albumin Level 3.8 g/dL (3.5-5.0); Alkaline Phosphatase 125 U/L (39-117); Aspartate Amino Transferase 20 U/L (5-37); Bilirubin Direct 0.3 mg/dL (0.0-0.5); Bilirubin Total 0.8 mg/dL (0.0-1.0); Blood Urea Nitrogen 34 mg/dL (9-16); Calcium 9.2 mg/dL (8.4-10.2); Creatinine Clr Calc Pharmacy 73.8; Estimated Glomerular Filt Rate > 60; Glucose Random 91 mg/dL (60-115); Magnesium 2.2 mg/dL (1.6-2.6); Total Protein 6.9 g/dL (6.5-8.0)
[2021-05-19 15:10] LABS: Troponin-I High Sensitivity 10.1 ng/L (<3.5-35.0)
[2021-05-19 15:27] LABS: Anion Gap 14 (12-20); Carbon Dioxide 26 mmol/L (22-29); Chloride 116 mmol/L (96-108); Potassium 3.7 mmol/L (3.3-5.1); Sodium 152 mmol/L (135-145)
[2021-05-19] MEDS: Piperacillin Sodium/Tazobactam 3.375 GM in 0.9 % Sodium Chloride 50 ML IV ×2 (15:27→22:17)
[2021-05-19] MEDS: vancomycin HCL 750 MG in 0.9 % Sodium Chloride 250 ML 265 MG IV (18:00)
--- NOTE | 2021-05-19 18:18 | P.HPHOSP_ITS ---
History of Present Illness Date of Service: 05/19/21 Chief Complaint: pressure sore 66yo M with schizophrenia, PTSD who was recently discharged from [facility] 4d ago, brought in by ambulance due to deconditioning, generalized weakness, and inability to care for himself at home. He has been found on the floor several times by his brother and unable to get himself up, soild in his own feces and urine. He denies fever, chills, cough, dyspnea, chest pain, abdominal pain, nausea, or vomiting. He is a poor historian. In the ED, he was found to have SIRS physiology (leukocytosis + tachycardia) along with a large necrotic right hip ulcer and a sacral ulcer. He was given vancomycin and piperacillin/tazobactam. Initial troponin was 10.1; unclear why this was checked, as he has no chest pain, chest pressure, or dyspnea. EKG shows sinus tachycardia with PVCs and LAD, possibly lateral ST depressions. R epeat troponin pending. Review of Systems Review of Systems: Yes all other systems are reviewed and are negative [facility] Medical History Hernia Poor historian Post traumatic stress disorder (PTSD) Psychosis Schizophrenia Social History Household Members: Family Household Members Other:: BROTHER Housing: House Do you presently have visiting nurse or other home services: No Alcohol intake: unknown Patient Tobacco Use Status: Former Tobacco user Cigarette Packs Per Day: 1 Cigarettes Per Day: 20.0 Years Smoked: 45 Second Hand Smoke Exposure: No Use of substances other than those prescribed or required for medical reasons: No Advance Directives: No Advance Directives Information Provided: No service: Yes Current occupational status: employed Meds Allergies Allergy/AdvReac Type Severity Reaction Status Date / Time No Known Allergies Allergy Verified 05/19/21 13:22 Active Medications: Current Medications Generic Name Dose Route Start Last Admin Trade Name Freq PRN Reason Stop Dose Admin Acetaminophen 650 mg 05/19/21 18:16 Acetaminophen 325 Mg Tablet PO Q6H PRN Pain, Mild (Pain Scale 1-3) Docusate Sodium 100 mg 05/19/21 18:16 Docusate Sodium 100 Mg Capsule PO BID PRN constipation Enoxaparin Sodium 40 mg 05/19/21 18:30 Enoxaparin Sodium 40 Mg/0.4 Ml Syringe SUBCUT Q24H [facility] Piperacillin Sod/Tazobactam 50 mls @ 100 mls/hr 05/19/21 21:00 Sod 3.375 gm/ Sodium Chloride IV Q6H [facility] Pharmacy Consult 1 each 05/19/21 18:05 Consult Rx Vancomycin Dosing MISCELLANE DAILY PRN Consult order Sodium Chloride 3 ml 05/20/21 00:00 0.9 % Sodium Chloride Flush 3 Ml Syringe IVFLUSH QSHIFT [facility] Home Medications Medication Instructions Recorded Confirmed Last Taken Type baclofen 10 mg PO BID 09/22/20 11/06/20 Unknown History bisacodyl [Dulcolax (bisacodyl)] 10 mg IN DAILY PRN 09/22/20 11/06/20 Unknown History clotrimazole 1 applic TOPICAL TID PRN 09/22/20 11/06/20 Unknown History clozapine 400 mg PO BEDTIME 09/22/20 09/22/20 Unknown History magnesium hydroxide [Milk of 30 ml PO DAILY PRN 09/22/20 11/06/20 Unknown History Magnesia] nicotine [Nicoderm CQ] 1 patch TRANSDERMAL DAILY 09/22/20 11/06/20 Unknown History simvastatin 10 mg PO DAILY 09/22/20 11/06/20 Unknown History tamsulosin [Flomax] 0.4 mg PO DAILY 09/22/20 11/06/20 Unknown History Physical Exam Vital Signs and Narrative: Vital Signs: Last Vital Signs Temp 97.7 F 05/19/21 18:11 Pulse 102 H 05/19/21 18:11 Resp 28 H 05/19/21 18:11 BP 114/75 05/19/21 18:11 Pulse Ox 98 05/19/21 18:11 Body Mass Index 18.3 Gen: in no acute distress HEENT: sclera anicteric, moist mucus membranes, edentulous Neck: supple Lungs: clear to auscultation bilaterally Heart: tachycardic, no murmurs Abd: soft, non-tender, non-distended Ext: no edema Skin: warm/well-perfused, ulcers as per pictures below Neuro: alert and oriented to self and place only, no focal findings Psych: appropriate affect, impaired insight Results Labs CBC and Chem 7: 05/19/21 14:35 05/19/21 14:35 Labs: Laboratory Results - last 24 hr 05/19/21 05/19/21 05/19/21 14:35 14:35 14:35 MCV 98.6 H MCH 31.0 MCHC 31.5 RDW 15.5 Plt Count 331 MPV 9.3 L Immature Gran % (Auto) 0.3 Neut % (Auto) 87.7 H Lymph % (Auto) 3.8 L [place] % (Auto) 7.9 Eos % (Auto) 0.1 Baso % (Auto) 0.2 Lymph # (Auto) 0.5 L [place] # (Auto) 1.0 Eos # (Auto) 0.0 Baso # (Auto) 0.0 Abs Immat Gran (auto) 0.04 H Absolute Neuts (auto) 10.9 H Absolute Nucleated RBC 0.000 Nucleated RBC % (auto) 0.0 Anion Gap 14 Estim Creat Clear Calc 73.8 Estimated GFR > 60 Random Glucose 91 Lactic Acid Calcium 9.2 Magnesium 2.2 Total Bilirubin 0.8 Direct Bilirubin 0.3 AST 20 ALT 18 Alkaline Phosphatase 125 H Total Creatine Kinase 251 H Troponin I High Sens Total Protein 6.9 Albumin 3.8 COVID-19 (ZAN) Negative COVID-19 Clin Com See Note 05/19/21 05/19/21 14:35 14:35 MCV MCH MCHC RDW Plt Count MPV Immature Gran % (Auto) Neut % (Auto) Lymph % (Auto) [place] % (Auto) Eos % (Auto) Baso % (Auto) Lymph # (Auto) [place] # (Auto) Eos # (Auto) Baso # (Auto) Abs Immat Gran (auto) Absolute Neuts (auto) Absolute Nucleated RBC Nucleated RBC % (auto) Anion Gap Estim Creat Clear Calc Estimated GFR Random Glucose Lactic Acid 1.9 Calcium Magnesium Total Bilirubin Direct Bilirubin AST ALT Alkaline Phosphatase Total Creatine Kinase Troponin I High Sens 10.1 Total Protein Albumin COVID-19 (ZAN) COVID-19 Clin Com Imaging Radiologist's Impressions: Impressions Chest X-Ray 05/19/21 14:06 IMPRESSION: No acute fracture or dislocation AP pelvis or right hip. Minimal atelectatic changes in the lingula. Hip/Pelvis X-Ray 05/19/21 14:11 IMPRESSION: No acute fracture or dislocation AP pelvis or right hip. Minimal atelectatic changes in the lingula. Assessment and Plan (1) Necrotic eschar: Status: Acute (2) Sepsis: Status: Acute 66yo M with schizophrenia, PTSD recently discharged from SN[facility] and brought in by ambulance due to deconditoning, weakness, inability to care for self, and found to have necrotic ulcer over R hip and sacral ulcer with sepsis physiology. # sepsis due to infected ulcers - admit to M/S, follow BCx, treat with vancomycin + pip/renetta, consult ID + Wound Care # schizophrenia - continue clozapine after dose confirmed # tobacco abuse - continue NRT # BPH - continue tamsulosin # HLD - continue statin # inadequate self-care - will need Case management Consultation- does not appear to have ability to care for self. I called the pt's brother at the listed phone number- no response, but I left a message for him to call back # VTE ppx - LMWH # code - FULL Quality Stroke Does the patient have a stroke diagnosis?: No VTE Prior VTE?: No VTE Risk Level:: Medical - moderate - high VTE Device Contraindication: N/A - Device Ordered VTE Drug Contraindication: N/A - Med Ordered
[2021-05-19 18:20] LABS: C Reactive Protein 11.42 mg/dL (< or = 0.50)
[2021-05-19 19:12] LABS: Glucose Urine UA NEG (NEG); Leukocyte Esterase Urine 3+ (NEG); Nitrite Urine POS (NEG); PH 5.5 (5.0-8.0); UACC Culture Trigger YES; Urine Blood 3+ (NEG); Urine Ketones 5 MG/DL (NEG); Urine Protein 2+ MG/DL (NEG-TRACE)
[2021-05-19 19:13] LABS: Appearance Urine HAZY; Color Urine AMBER
[2021-05-19 19:25] LABS: Bacteria Urine 3+ /LPF; Squamous Epithelial Cell Urine 1+ /LPF
[2021-05-19 19:34] LABS: Troponin-I High Sensitivity 11.2 ng/L (<3.5-35.0)
[2021-05-19 19:38] LABS: Amphetamine Screen Urine Not Detected (Not Detect); Barbiturates, Urine Not Detected (Not Detect); Benzodiazepines Screen Urine Not Detected (Not Detect); Cannabinoid Screen Urine Not Detected (Not Detect); Cocaine Screen Urine Not Detected (Not Detect); Opiate Screen Urine Not Detected (Not Detect); Phencyclidine Screen Urine Not Detected (Not Detect)
[2021-05-19] MEDS: Enoxaparin Sodium 40 MG/0.4 ML SYRINGE SUBCUT (20:06)
[2021-05-19] MEDS: Acetaminophen 325 MG TABLET 650 MG PO (20:06)
--- NOTE | 2021-05-19 20:26 | PC.NURSE ---
REPORT GIVEN TO KAREN BARRERA. PADDED DSG PLACED ON UNSTAGEABLE ULCER. PT FEBRILE, GIVEN APAP.
[2021-05-19] MEDS: Atorvastatin Calcium 10 MG TABLET PO (22:17)
[2021-05-19] MEDS: Tamsulosin HCL 0.4 MG CAPSULE PO (22:18)
[2021-05-20] MEDS: 0.9 % Sodium Chloride Flush 3 ML SYRINGE IVFLUSH ×3 (00:34→17:35)
[2021-05-20] MEDS: Piperacillin Sodium/Tazobactam 3.375 GM in 0.9 % Sodium Chloride 50 ML IV ×2 (03:11→09:09)
[2021-05-20] MEDS: vancomycin HCL 750 MG in 0.9 % Sodium Chloride 250 ML 265 MG IV ×2 (05:56→17:35)
[2021-05-20 06:52] LABS: Hematocrit 37.4 % (42-52); Hemoglobin 11.5 g/dl (14.0-18.0); Mean Corpuscular HGB Conc 30.7 g/dl (31.0-36.0); Mean Corpuscular Hemoglobin 31.2 pg (27.0-33.0); Mean Corpuscular Volume 101.4 fL (80-98); Mean Platelet Volume 9.7 fL (9.4-12.4); Platelet Count 313 X10*3/uL (160-400); Red Blood Count 3.69 X10*6/uL (4.60-5.80); Red Cell Distribution Width 15.6 % (11.0-16.0); White Blood Count 10.7 X10*3/uL (4.8-10.8)
[2021-05-20 07:00] VITALS: BP 105/63; PULSE 79; RESP 20; TEMP 36.6; O2SAT 98
[2021-05-20 07:39] VITALS: BP 105/63; PULSE 79; O2SAT 98
[2021-05-20 07:44] LABS: Erythrocyte Sedimentation Rate 19 MM/HR (0-15)
[2021-05-20 07:57] LABS: Blood Urea Nitrogen 31 mg/dL (9-16); Creatinine Clr Calc Pharmacy 66.6; Estimated Glomerular Filt Rate > 60; Glucose Random 95 mg/dL (60-115); Sodium 153 mmol/L (135-145)
[2021-05-20 08:01] LABS: Anion Gap 9 (12-20); Calcium 8.3 mg/dL (8.4-10.2); Carbon Dioxide 26 mmol/L (22-29); Chloride 120 mmol/L (96-108); Potassium 3.3 mmol/L (3.3-5.1)
[2021-05-20] MEDS: Nicotine 14 MG PATCH.TD24 TRANSDERMA (09:10)
--- NOTE | 2021-05-20 09:20 | HO.PM.IMPN ---
Subjective Subjective Date of Service: 05/20/21 Interval History: sacral ulcer with sepsis Review of Systems Patient edema so simple questions denies any chest pain or shortness but the pain or fever or chills or cough or phlegm. Physical Exam Vital Signs: Vital Signs: Last Vital Signs Temp 98 F 05/20/21 07:00 Pulse 79 05/20/21 07:39 Resp 20 05/20/21 07:00 BP 105/63 05/20/21 07:39 Pulse Ox 98 05/20/21 07:39 Body Mass Index 18.3 Physical exam: Gen: no acute distress HEENT: sclera anicteric, moist mucus membranes, edentulous. Neck: supple. Lungs: clear to auscultation bilaterally Heart: tachycardic, no murmurs Abd: soft, non-tender, non-distended Ext: no edema Skin: warm/well-perfused, ulcers multiple more like ero Neuro: alert and oriented to self and place only, no focal findings Psych: appropriate affect, impaired insight Objective Data Current Medications Generic Name Dose Route Start Last Admin Trade Name Markoq PRN Reason Stop Dose Admin Acetaminophen 650 mg 05/19/21 18:16 05/19/21 20:06 Acetaminophen 325 Mg Tablet PO 650 mg Q6H PRN Administration Pain, Mild (Pain Scale 1-3) Atorvastatin Calcium 10 mg 05/19/21 21:00 05/19/21 22:17 Atorvastatin Calcium 10 Mg Tablet PO 10 mg BEDTIME BARBIE Administration Docusate Sodium 100 mg 05/19/21 18:16 Docusate Sodium 100 Mg Capsule PO BID PRN constipation Enoxaparin Sodium 40 mg 05/19/21 20:00 05/19/21 20:06 Enoxaparin Sodium 40 Mg/0.4 Ml Syringe SUBCUT 40 mg Q24H BARBIE Administration Piperacillin Sod/Tazobactam 50 mls @ 100 mls/hr 05/19/21 21:00 05/20/21 09:09 Sod 3.375 gm/ Sodium Chloride IV 100 mls/hr Q6H BARBIE Administration Vancomycin HCl 750 mg/ Sodium 265 mls @ 265 mls/hr 05/20/21 06:00 05/20/21 09:17 Chloride IV Infused Q12H BARBIE Infusion Nicotine 14 mg 05/19/21 18:45 05/20/21 09:10 Nicotine 14 Mg Patch.Td24 TRANSDERMA 14 mg DAILY [facility] Administration Pharmacy Consult 1 each 05/19/21 18:05 Consult Rx Vancomycin Dosing MISCELLANE DAILY PRN Consult order Sodium Chloride 3 ml 05/20/21 00:00 05/20/21 09:10 0.9 % Sodium Chloride Flush 3 Ml Syringe IVFLUSH 3 ml QSHIFT BARBIE Administration Tamsulosin HCl 0.4 mg 05/19/21 21:00 05/19/21 22:18 Tamsulosin Hcl 0.4 Mg Capsule PO 0.4 mg BEDTIME BARBIE Administration Labs CBC & Chem 7: 05/20/21 06:26 05/20/21 06:26 Labs: Laboratory Results - last 24 hr 05/19/21 05/19/21 05/19/21 14:35 14:35 14:35 WBC 12.4 H RBC 4.19 L Hgb 13.0 L Hct 41.3 L MCV 98.6 H MCH 31.0 MCHC 31.5 RDW 15.5 Plt Count 331 MPV 9.3 L Immature Gran % (Auto) 0.3 Neut % (Auto) 87.7 H Lymph % (Auto) 3.8 L Guthrie % (Auto) 7.9 Eos % (Auto) 0.1 Baso % (Auto) 0.2 Lymph # (Auto) 0.5 L G[place]rie # (Auto) 1.0 Eos # (Auto) 0.0 Baso # (Auto) 0.0 Abs Immat Gran (auto) 0.04 H Absolute Neuts (auto) 10.9 H Absolute Nucleated RBC 0.000 Nucleated RBC % (auto) 0.0 ESR Sodium 152 H Potassium 3.7 D Chloride 116 H Carbon Dioxide 26 Anion Gap 14 BUN 34 H Creatinine 0.74 Estim Creat Clear Calc 73.8 Estimated GFR > 60 Random Glucose 91 Lactic Acid Calcium 9.2 Magnesium 2.2 Total Bilirubin 0.8 Direct Bilirubin 0.3 AST 20 ALT 18 Alkaline Phosphatase 125 H Total Creatine Kinase 251 H Troponin I High Sens C-Reactive Protein 11.42 H Total Protein 6.9 Albumin 3.8 Urine Color Urine Appearance Urine pH Ur Specific [place] Urine Protein Urine Glucose (UA) Urine Ketones Urine Blood Urine Nitrite Ur Leukocyte Esterase Urine RBC Urine WBC Ur Squamous Epith Cells Urine Bacteria Urine Opiates Screen Ur Barbiturates Screen Ur Phencyclidine Scrn Ur Amphetamines Screen U Benzodiazepines Scrn Urine Cocaine Screen U Marijuana (THC) Screen COVID-19 (ZAN) Negative COVID-19 Clin Com See Note 05/19/21 05/19/21 05/19/21 14:35 14:35 18:49 WBC RBC Hgb Hct MCV MCH MCHC RDW Plt Count MPV Immature Gran % (Auto) Neut % (Auto) Lymph % (Auto) G[place]rie % (Auto) Eos % (Auto) Baso % (Auto) Lymph # (Auto) G[place]rie # (Auto) Eos # (Auto) Baso # (Auto) Abs Immat Gran (auto) Absolute Neuts (auto) Absolute Nucleated RBC Nucleated RBC % (auto) ESR Sodium Potassium Chloride Carbon Dioxide Anion Gap BUN Creatinine Estim Creat Clear Calc Estimated GFR Random Glucose Lactic Acid 1.9 Calcium Magnesium Total Bilirubin Direct Bilirubin AST ALT Alkaline Phosphatase Total Creatine Kinase Troponin I High Sens 10.1 11.2 C-Reactive Protein Total Protein Albumin Urine Color Urine Appearance Urine pH Ur Specific [place] Urine Protein Urine Glucose (UA) Urine Ketones Urine Blood Urine Nitrite Ur Leukocyte Esterase Urine RBC Urine WBC Ur Squamous Epith Cells Urine Bacteria Urine Opiates Screen Ur Barbiturates Screen Ur Phencyclidine Scrn Ur Amphetamines Screen U Benzodiazepines Scrn Urine Cocaine Screen U Marijuana (THC) Screen COVID-19 (ZAN) COVID-19 Clin Com 05/19/21 05/19/21 05/20/21 18:59 18:59 06:26 WBC 10.7 RBC 3.69 L Hgb 11.5 L Hct 37.4 L MCV 101.4 H MCH 31.2 MCHC 30.7 L RDW 15.6 Plt Count 313 MPV 9.7 Immature Gran % (Auto) Neut % (Auto) Lymph % (Auto) [place] % (Auto) Eos % (Auto) Baso % (Auto) Lymph # (Auto) [place]rie # (Auto) Eos # (Auto) Baso # (Auto) Abs Immat Gran (auto) Absolute Neuts (auto) Absolute Nucleated RBC 0.000 Nucleated RBC % (auto) 0.0 ESR Sodium Potassium Chloride Carbon Dioxide Anion Gap BUN Creatinine Estim Creat Clear Calc Estimated GFR Random Glucose Lactic Acid Calcium Magnesium Total Bilirubin Direct Bilirubin AST ALT Alkaline Phosphatase Total Creatine Kinase Troponin I High Sens C-Reactive Protein Total Protein Albumin Urine Color MAGDALENA Urine Appearance HAZY Urine pH 5.5 Ur Specific [place] 1.020 Urine Protein 2+ H Urine Glucose (UA) NEG Urine Ketones 5 Urine Blood 3+ H Urine Nitrite POS H Ur Leukocyte Esterase 3+ H Urine RBC 15-29 H Urine WBC 15-29 H Ur Squamous Epith Cells 1+ Urine Bacteria 3+ Urine Opiates Screen Not Detected Ur Barbiturates Screen Not Detected Ur Phencyclidine Scrn Not Detected Ur Amphetamines Screen Not Detected U Benzodiazepines Scrn Not Detected Urine Cocaine Screen Not Detected U Marijuana (THC) Screen Not Detected COVID-19 (ZAN) COVID-19 Clin Com 05/20/21 05/20/21 06:26 06:26 WBC RBC Hgb Hct MCV MCH MCHC RDW Plt Count MPV Immature Gran % (Auto) Neut % (Auto) Lymph % (Auto) [place] % (Auto) Eos % (Auto) Baso % (Auto) Lymph # (Auto) [place] # (Auto) Eos # (Auto) Baso # (Auto) Abs Immat Gran (auto) Absolute Neuts (auto) Absolute Nucleated RBC Nucleated RBC % (auto) ESR 19 H Sodium 153 H Potassium 3.3 Chloride 120 H Carbon Dioxide 26 Anion Gap 9 L BUN 31 H Creatinine 0.82 Estim Creat Clear Calc 66.6 Estimated GFR > 60 Random Glucose 95 Lactic Acid Calcium 8.3 L D Magnesium Total Bilirubin Direct Bilirubin AST ALT Alkaline Phosphatase Total Creatine Kinase Troponin I High Sens C-Reactive Protein Total Protein Albumin Urine Color Urine Appearance Urine pH Ur Specific [place] Urine Protein Urine Glucose (UA) Urine Ketones Urine Blood Urine Nitrite Ur Leukocyte Esterase Urine RBC Urine WBC Ur Squamous Epith Cells Urine Bacteria Urine Opiates Screen Ur Barbiturates Screen Ur Phencyclidine Scrn Ur Amphetamines Screen U Benzodiazepines Scrn Urine Cocaine Screen U Marijuana (THC) Screen COVID-19 (ZAN) COVID-19 Clin Com Quality Stroke Does the patient have a stroke diagnosis?: No VTE Prior VTE?: No VTE Risk Level:: Medical - moderate - high VTE Device Contraindication: N/A - Device Ordered VTE Drug Contraindication: N/A - Med Ordered Assessment and Plan (1) Sepsis: Status: Acute (2) Bacteriuria: Status: Acute Assessment and Plan: 66yo M with schizophrenia, PTSD recently discharged from SNF and brought in by ambulance due to deconditoning, weakness, inability to care for self, and found to have necrotic ulcer over R hip and sacral ulcer with sepsis physiology. 1. intially thought to be sepsis due to infected ulcers: ? d/w Id -seems less likely infectious Seems like back urea is colonization probably Hold off antibiotic - admit to M/S, follow BCx, Wound Care consult pending. 2. schizophrenia - continue clozapine after dose confirmed 3. tobacco abuse - continue NRT 4. BPH - continue tamsulosin 5. HLD - continue statin 6.inadequate self-care - will need Case management Consultation- does not appear to have ability to care for self. Initially try to call the family but no response, will call back again. # VTE ppx - LMWH
[2021-05-20 13:14] VITALS: BMI 18.3
--- NOTE | 2021-05-20 13:23 | MHC.CM.PN ---
CM CONTACTED PTS BROTHER/LEGAL GUARDIAN, INDIGO [facility] ([phone]) WHO REPORTS THE PT WAS AT [facility] FOR 4-5 MONTHS FOR STR. HE REPORTS HE FELT LIKE THE PT WAS DOING BETTER SO HE BROUGHT HIM HOME HOWEVER ONCE HE GOT HOME HE DID NOT GET OUT OF BED. WHEN THE PT DID EVENTUALLY TRY TO GET UP, HE IMMEDIATELY FELL. INDIGO REPORTS HE WOULD PREFER THE PT NOT RETURN TO [facility]. HE REPORTS THEY RECEIVED A BILL FOR $900 FOR THE LAST MONTH HE WAS THERE. CM EXPLAINED THAT THE PT HAD LIKELY RUN OUT OF MEDICARE STR DAYS AND WOULD HAVE TO BE PLACED ON HIS MEDICAID BENEFITS WHICH WOULD LIKELY BE RESIDENTIAL ONLY. INDIGO REQUESTED REFERRALS BE SENT TO SEE IF PT CAN GO TO A DIFFERENT FACILITY, HE WOULD LIKE PT TO GO ON MEDICARE SO THAT HE CAN HAVE THERAPY HOWEVER HE IS AWARE THIS MAY NOT BE AN OPTION. CM WILL MAKE LOCAL REFERRALS AND THEN CONTACT INDIGO WITH BED OFFERS. CURRENT DC PLAN IS SNF PLACEMENT. BLS TRANSPORT
--- NOTE | 2021-05-20 13:28 | MHC.CLN ---
NUTRITION/CONSULT STARTED OSCAR 1 PACKET BID AND ENSURE 240 ML TID. PATIENT QUALIFIES MODERATE MALNUTRITION IN THE CONTEXT OF ACUTE ILLNESS/INJURY.
[2021-05-20] MEDS: Dextrose 5 % and 0.45 % NaCl 1,000 ML 50 ML IVCONT (14:58)
[2021-05-20 15:29] VITALS: BP 122/67; PULSE 68; RESP 20; TEMP 37.4; O2SAT 96
--- NOTE | 2021-05-20 15:50 | W.PM.IDCN ---
History of Present Illness Data of Consult Service Date: 05/20/21 Requesting physician: Patrice Zavaleta Primary Care Provider: Alexander Billings MD HPI Reason for consult: necrotic hip ulcer,leukocytosis He presents with weakness and fatigue He was found down in home soiled with urine and feces He has one temperature of 100.4 and leukocytosis of 12 on admission He has right hip eschar and abrasions on arms and legs Urine gram negative rods Review of Systems Review of Systems: Yes Unobtainable due to mental condition [facility] Past Medical History Medical History (Updated 05/20/21 @ 15:56 by Rafaela Friend MD) Bacteriuria Fever of unknown origin Hernia Poor historian Post traumatic stress disorder (PTSD) Psychosis Schizophrenia Family History Family history: reviewed and not pertinent Social History Social History Household Members: Family Household Members Other:: brother and his Housing: House Do you presently have visiting nurse or other home services: No Alcohol intake: unknown Patient Tobacco Use Status: Former Tobacco user Cigarette Packs Per Day: 1 Cigarettes Per Day: 20.0 Years Smoked: 45 Second Hand Smoke Exposure: No Use of substances other than those prescribed or required for medical reasons: No Currently Displaying Signs/Symptoms of Drug Intoxication Withdrawal: No Have you been hit, kicked, punched, or otherwise hurt by someone within the past year? If so, by whom?: No Do you feel safe in your current relationship?: Yes Is there a partner from a previous relationship who is making you feel unsafe now?: No Are you made to feel afraid or neglected: No Advance Directives: No Advance Directives Information Provided: No Do you have thoughts of harming others: None Do you have a plan to hurt others: No Plan Recently lost weight without trying: No Nutrition Risks: No Nutritional Risk Poor oral hygiene: Yes service: No Current occupational status: disabled Meds Allergies Allergy/AdvReac Type Severity Reaction Status Date / Time No Known Allergies Allergy Verified 05/19/21 13:22 Active Medications: Current Medications Generic Name Dose Route Start Last Admin Trade Name Freq PRN Reason Stop Dose Admin Acetaminophen 650 mg 05/19/21 18:16 05/19/21 20:06 Acetaminophen 325 Mg Tablet PO 650 mg Q6H PRN Administration Pain, Mild (Pain Scale 1-3) Atorvastatin Calcium 10 mg 05/19/21 21:00 05/19/21 22:17 Atorvastatin Calcium 10 Mg Tablet PO 10 mg BEDTIME BARBIE Administration Docusate Sodium 100 mg 05/19/21 18:16 Docusate Sodium 100 Mg Capsule PO BID PRN constipation Enoxaparin Sodium 40 mg 05/19/21 20:00 05/19/21 20:06 Enoxaparin Sodium 40 Mg/0.4 Ml Syringe SUBCUT 40 mg Q24H BARBIE Administration Vancomycin HCl 750 mg/ Sodium 265 mls @ 265 mls/hr 05/20/21 06:00 05/20/21 09:17 Chloride IV Infused Q12H BARBIE Infusion Dextrose/Sodium Chloride 1,000 mls @ 50 mls/hr 05/20/21 13:15 05/20/21 14:58 D51/2ns IVCONT 50 mls/hr .Q20H BARBIE Administration Nicotine 14 mg 05/19/21 18:45 05/20/21 09:10 Nicotine 14 Mg Patch.Td24 TRANSDERMA 14 mg DAILY BARBIE Administration Pharmacy Consult 1 each 05/19/21 18:05 Consult Rx Vancomycin Dosing MISCELLANE DAILY PRN Consult order Sodium Chloride 3 ml 05/20/21 00:00 05/20/21 09:10 0.9 % Sodium Chloride Flush 3 Ml Syringe IVFLUSH 3 ml QSHIFT BARBIE Administration Tamsulosin HCl 0.4 mg 05/19/21 21:00 05/19/21 22:18 Tamsulosin Hcl 0.4 Mg Capsule PO 0.4 mg BEDTIME BARBIE Administration Home Medications Medication Instructions Recorded Confirmed Last Taken Type baclofen 10 mg PO BID 09/22/20 05/19/21 Unknown History bisacodyl [Dulcolax (bisacodyl)] 10 mg ME DAILY PRN 09/22/20 05/19/21 Unknown History clozapine 400 mg PO BEDTIME 09/22/20 05/19/21 Unknown History magnesium hydroxide [Milk of 30 ml PO DAILY PRN 09/22/20 05/19/21 Unknown History Magnesia] nicotine [Nicoderm CQ] 1 patch TRANSDERMAL DAILY 09/22/20 05/19/21 Unknown History simvastatin 10 mg PO DAILY 09/22/20 05/19/21 Unknown History tamsulosin [Flomax] 0.4 mg PO DAILY 09/22/20 05/19/21 Unknown History oxybutynin chloride 1 tab PO DAILY 05/19/21 05/19/21 Unknown History Physical Exam Vital Signs: Vital Signs: Last Vital Signs Temp 99.3 F 05/20/21 15:29 Pulse 68 05/20/21 15:29 Resp 20 05/20/21 15:29 BP 122/67 05/20/21 15:29 Pulse Ox 96 05/20/21 15:29 Body Mass Index 18.3 Const: General: cooperative HENMT: Head: Yes normal to inspection Mouth: Normal oral and palatal mucosa present Resp: Effort & Inspection: normal respiratory effort Cardio: Rate: regular rate Rhythm: regular rhythm GI: Palpation (GI): Soft to palpation and nontender : General: Yes no CVA tenderness Back/Spine/Pelvis: Back: no CVA tenderness Skin: Other: large necrotic right hip ulcer abrasions knees Neuro: General: moves all extremities Results Labs CBC & Chem 7: 05/20/21 06:26 05/20/21 06:26 Labs: Short CBC 05/20/21 Range/Units 06:26 WBC 10.7 (4.8-10.8) X10*3/uL Hgb 11.5 L (14.0-18.0) g/dl Hct 37.4 L (42-52) % Plt Count 313 (160-400) X10*3/uL BMP 05/20/21 06:26 Sodium 153 H Potassium 3.3 Chloride 120 H Carbon Dioxide 26 BUN 31 H Creatinine 0.82 Calcium 8.3 L D Urine 05/19/21 Range/Units 18:59 Urine Color MAGDALENA Urine Appearance HAZY Urine pH 5.5 (5.0-8.0) Ur Specific [place] 1.020 (1.005-1.025) Urine Protein 2+ H (NEG-TRACE) MG/DL Urine Glucose (UA) NEG (NEG) MG/DL Microbiology Microbiology Results: Microbiology 05/19/21 19:20 Urine clean catch - Clean Catch Midstream Urine Culture - Preliminary Gram negative lloyd Assessment and Plan (1) Necrotic eschar: Status: Acute This eschar appears superficial due to pressure necrosis at this time Local wound care Hold antibiotics for now (2) Bacteriuria: Status: Acute He has possible colonized urine as had had chronically found organisms such as Providencia Hold antibiotics for now (3) Fever of unknown origin: Status: Acute He had low grade temperature consistent with rhabdomyolysis from laying on floor and superficial pressure necrosis Would observe and check CT or MRI if concerning for erythema Restart antibiotics to Vancomycin and Zosyn if temperature 101 or higher and check CT or MRI hip and CRP/ESR
[2021-05-20 17:37] LABS: Sodium 153 mmol/L (135-145)
[2021-05-20] MEDS: Atorvastatin Calcium 10 MG TABLET PO (20:45)
[2021-05-20] MEDS: cloZAPine 100 MG TABLET 400 MG PO (20:45)
[2021-05-20] MEDS: Tamsulosin HCL 0.4 MG CAPSULE PO (20:45)
[2021-05-20] MEDS: Enoxaparin Sodium 40 MG/0.4 ML SYRINGE SUBCUT (20:45)
[2021-05-20 23:32] VITALS: BP 125/76; PULSE 86; RESP 18; TEMP 36; O2SAT 97
[2021-05-21] VITALS: RESP 18
[2021-05-21 05:22] LABS: Vancomycin Trough 7.5 mcg/mL (10.0-20.0)
--- NOTE | 2021-05-21 05:45 | PC.NURSE ---
VANCO TROUGH RESULTS OF 7.5 THIS AM REPORTED TO HOSPITALIST, ALSO MADE MD AWARE OF RECOMMENDATION TO DISCONTINUE ABX UNLESS TEMP >=101 BY ID MD, RETURN ANSWER WAS TO HANG 0600 CURRENT DOSE.
[2021-05-21] MEDS: vancomycin HCL 750 MG in 0.9 % Sodium Chloride 250 ML 265 MG IV (06:03)
[2021-05-21 07:20] VITALS: BP 103/66; PULSE 76; RESP 16; TEMP 36.5; O2SAT 96
[2021-05-21] MEDS: Nicotine 14 MG PATCH.TD24 TRANSDERMA (07:54)
[2021-05-21 08:28] LABS: Hematocrit 35.2 % (42-52); Hemoglobin 10.8 g/dl (14.0-18.0); Mean Corpuscular HGB Conc 30.7 g/dl (31.0-36.0); Mean Corpuscular Hemoglobin 30.9 pg (27.0-33.0); Mean Corpuscular Volume 100.9 fL (80-98); Mean Platelet Volume 9.7 fL (9.4-12.4); Platelet Count 292 X10*3/uL (160-400); Red Blood Count 3.49 X10*6/uL (4.60-5.80); Red Cell Distribution Width 15.6 % (11.0-16.0); White Blood Count 9.4 X10*3/uL (4.8-10.8)
[2021-05-21 08:59] LABS: Anion Gap 10 (12-20); Blood Urea Nitrogen 21 mg/dL (9-16); Calcium 7.7 mg/dL (8.4-10.2); Carbon Dioxide 24 mmol/L (22-29); Chloride 119 mmol/L (96-108); Creatinine Clr Calc Pharmacy 92.6; Estimated Glomerular Filt Rate > 60; Glucose Random 97 mg/dL (60-115); Potassium 3.5 mmol/L (3.3-5.1); Sodium 149 mmol/L (135-145)
[2021-05-21] MEDS: Dextrose 5 % and 0.45 % NaCl 1,000 ML 50 ML IVCONT (10:13)
[2021-05-21 10:44] VITALS: BP 103/66; PULSE 76; O2SAT 96
--- NOTE | 2021-05-21 11:50 | MHC.CM.PN ---
ANANDA MASON ([phone]) IS AGREEABLE TO REHAB PLACEMENT AT [facility] IN [place] ANANDA WILL NEED AUTHORITY TO ADMIT, LAST ORDER WAS TEMPORARY AND FOR ADMISSION TO [facility].
--- NOTE | 2021-05-21 12:14 | MHC.CM.PN ---
BROTHER/GUARDIAN MARLON IS LOOKING FOR THE CURRENT [place] ORDER AND AUTHORITY TO ADMIT TO A SNF. HE WILL BRING IN AND ASK FOR THIS TRANSACTION PROCESSOR. MARLON IS AWARE THAT PATIENT CANNOT DC TO A SNF WITHOUT THESE DOCUMENTS. [facility] IS WILLING TO ACCEPT ONCE PROPER DOCUMENTATION IS UPLOADED.
--- NOTE | 2021-05-21 12:21 | P.CDIC_ITS ---
CDI Concurrent Query Service Date: 05/21/21 Documentation Clarification: Please clarify if you are treating a proba ble/suspected/likely or confirmed: Mild Protein Calorie Malnutrition Moderate Protein Calorie Malnutrition-yes Severe Protein Calorie Malnutrition Other, please specify if known Provider Response: Other Other Diagnosis: Moderate protein calorie malnutrition. PLEASE DO NOT DELETE/MODIFY EXISTING CONTENT Additional information is needed in order to code to the highest accuracy and appropriate Severity of Illness (SOI). Please clarify the information noted below in your progress notes and discharge summary. Risk Factors/Clinical Indicators/Treatments BMI 18.4 Per Nutrition note 05/20/21: started Claudio 1 pack BID and Ensure. Qualifies as moderate malnutrition in context of acute illness/injury CDS: Maria Victoria Rain RN Contact Number: [phone] Please Review the information above and exercise your independent professional judgment in responding to the query. If you concur, pleas document in the PROGRESS NOTES and DISCHARGE SUMMARY. If you do not agree with the query, please document in the query above. THIS QUERY IS PART OF THE PERMANENT MEDICAL RECORD
--- NOTE | 2021-05-21 12:26 | HO.PM.IMPN ---
Subjective Subjective Date of Service: 05/21/21 Interval History: Multiple ulcer, bateruria , hyponatremia Review of Systems Patient denies any chest pain or shortness of breath abdominal pain or fever chills No new complaints Physical Exam Vital Signs: Vital Signs: Last Vital Signs Temp 97.7 F 05/21/21 07:20 Pulse 76 05/21/21 10:44 Resp 16 05/21/21 07:20 BP 103/66 05/21/21 10:44 Pulse Ox 96 05/21/21 10:44 Body Mass Index 18.3 physical exam: Gen: no acute distress. Lungs: clear to auscultation bilaterally Heart: rrr,s1s2 heard, no murmurs Abd: soft, non-tender, non-distended Ext: no edema Skin: warm/well-perfused, ulcers multiple more like ero Neuro: alert and oriented to self and place only, no focal findings Psych: appropriate affect, impaired insight Objective Data Current Medications Generic Name Dose Route Start Last Admin Trade Name Freq PRN Reason Stop Dose Admin Acetaminophen 650 mg 05/19/21 18:16 05/19/21 20:06 Acetaminophen 325 Mg Tablet PO 650 mg Q6H PRN Administration Pain, Mild (Pain Scale 1-3) Atorvastatin Calcium 10 mg 05/19/21 21:00 05/20/21 20:45 Atorvastatin Calcium 10 Mg Tablet PO 10 mg BEDTIME BARBIE Administration Clozapine 400 mg 05/20/21 21:00 05/20/21 20:45 Clozapine 100 Mg Tablet PO 400 mg BEDTIME BARBIE Administration Docusate Sodium 100 mg 05/19/21 18:16 Docusate Sodium 100 Mg Capsule PO BID PRN constipation Enoxaparin Sodium 40 mg 05/19/21 20:00 05/20/21 20:45 Enoxaparin Sodium 40 Mg/0.4 Ml Syringe SUBCUT 40 mg Q24H BARBIE Administration Vancomycin HCl 1,000 mg/ 270 mls @ 270 mls/hr 05/21/21 17:00 Sodium Chloride IV Q12H BARBIE Dextrose/Sodium Chloride 1,000 mls @ 50 mls/hr 05/21/21 09:30 05/21/21 10:13 D51/2ns IVCONT 50 mls/hr .Q20H BARBIE Administration Nicotine 14 mg 05/19/21 18:45 05/21/21 07:54 Nicotine 14 Mg Patch.Td24 TRANSDERMA 14 mg DAILY [facility] Administration Pharmacy Consult 1 each 05/19/21 18:05 Consult Rx Vancomycin Dosing MISCELLANE DAILY PRN Consult order Sodium Chloride 3 ml 05/20/21 00:00 05/21/21 07:55 0.9 % Sodium Chloride Flush 3 Ml Syringe IVFLUSH Not Given QSHIFT BARBIE Tamsulosin HCl 0.4 mg 05/19/21 21:00 05/20/21 20:45 Tamsulosin Hcl 0.4 Mg Capsule PO 0.4 mg BEDTIME BARBIE Administration Labs CBC & Chem 7: 05/21/21 07:54 05/21/21 07:54 Labs: Laboratory Results - last 24 hr 05/20/21 05/21/21 05/21/21 16:54 04:39 07:54 WBC RBC Hgb Hct MCV MCH MCHC RDW Plt Count MPV Absolute Nucleated RBC Nucleated RBC % (auto) Sodium 153 H 149 H Potassium 3.5 Chloride 119 H Carbon Dioxide 24 Anion Gap 10 L BUN 21 H Creatinine 0.59 Estim Creat Clear Calc 92.6 Estimated GFR > 60 Random Glucose 97 Calcium 7.7 L D Vancomycin Trough 7.5 L 05/21/21 07:54 WBC 9.4 RBC 3.49 L Hgb 10.8 L Hct 35.2 L MCV 100.9 H MCH 30.9 MCHC 30.7 L RDW 15.6 Plt Count 292 MPV 9.7 Absolute Nucleated RBC 0.000 Nucleated RBC % (auto) 0.0 Sodium Potassium Chloride Carbon Dioxide Anion Gap BUN Creatinine Estim Creat Clear Calc Estimated GFR Random Glucose Calcium Vancomycin Trough Microbiology Microbiology Results: Microbiology 05/19/21 19:20 Urine Culture - Final Urine clean catch - Clean Catch Midstream Pseudomonas aeruginosa 05/19/21 15:26 Blood Culture - Preliminary Blood - Venous No growth after 24 hours. 05/19/21 14:35 Blood Culture - Preliminary Blood - Venous No growth after 24 hours. Quality Stroke Does the patient have a stroke diagnosis?: No VTE Prior VTE?: No VTE Risk Level:: Medical - moderate - high VTE Device Contraindication: N/A - Device Ordered VTE Drug Contraindication: N/A - Med Ordered Assessment and Plan (1) Hypernatremia: Status: Acute (2) Fever of unknown origin: Status: Acute Assessment and Plan: 66yo M with schizophrenia, PTSD recently discharged from SNF and brought in by ambulance due to deconditoning, weakness, inability to care for self, and found to have necrotic ulcer over R hip and sacral ulcer with sepsis physiology. 1. intially thought to be sepsis due to infected ulcers: ? d/w Id -seems less likely infectious urine culture Seems like back urea is colonization probably Hold off antibiotic, follow BCx, Wound Care consult appeciated . follow up today 2. schizophrenia - continue clozapine after dose confirmed 3. tobacco abuse - continue NRT 4. BPH - continue tamsulosin 5. HLD - continue statin 6.schizophrenia/inadequate self-care - will need Case management Consultation- does not appear to have ability to care for self. 7. Hyponatremia: Probably related dehydration Continue D5/045ns, monitor electrolytes closely. Currently patient sodium improving slowly 149 . # VTE ppx - LMWH
--- NOTE | 2021-05-21 13:57 | MHC.CM.PN ---
ANANDA (MARLON) DELIVERED: DECREE AND ORDER OF EXPANSION OF ANANDA PALMER MONITOR APPOINTMENT AND TREATMENT (ESTELA) ORDER DOCUMENTS UPLOADED INTO [employer]
[2021-05-21 15:25] VITALS: BP 120/73; PULSE 93; RESP 20; TEMP 36.6; O2SAT 99
[2021-05-21] MEDS: vancomycin HCL 1,000 MG in 0.9 % Sodium Chloride 250 ML 270 MG IV (16:32)
[2021-05-21] MEDS: 0.9 % Sodium Chloride Flush 3 ML SYRINGE IVFLUSH (16:33)
[2021-05-21 19:44] LABS: Sodium 147 mmol/L (135-145)
[2021-05-21] MEDS: cloZAPine 100 MG TABLET 400 MG PO (21:27)
[2021-05-21] MEDS: Enoxaparin Sodium 40 MG/0.4 ML SYRINGE SUBCUT (21:27)
[2021-05-21] MEDS: Tamsulosin HCL 0.4 MG CAPSULE PO (21:28)
[2021-05-21] MEDS: Atorvastatin Calcium 10 MG TABLET PO (21:28)
[2021-05-21 23:32] VITALS: BP 117/68; PULSE 101; RESP 18; TEMP 36.7; O2SAT 93
[2021-05-22] MEDS: 0.9 % Sodium Chloride Flush 3 ML SYRINGE IVFLUSH (00:52)
[2021-05-22] MEDS: Dextrose 5 % and 0.45 % NaCl 1,000 ML 50 ML IVCONT (05:42)
[2021-05-22] MEDS: vancomycin HCL 1,000 MG in 0.9 % Sodium Chloride 250 ML 270 MG IV (05:42)
[2021-05-22 06:23] LABS: Hematocrit 35.4 % (42-52); Mean Corpuscular HGB Conc 31.1 g/dl (31.0-36.0); Mean Corpuscular Hemoglobin 30.7 pg (27.0-33.0); Mean Corpuscular Volume 98.9 fL (80-98); Mean Platelet Volume 9.9 fL (9.4-12.4); Platelet Count 334 X10*3/uL (160-400); Red Blood Count 3.58 X10*6/uL (4.60-5.80); White Blood Count 8.3 X10*3/uL (4.8-10.8)
[2021-05-22 07:13] LABS: Anion Gap 10 (12-20); Blood Urea Nitrogen 16 mg/dL (9-16); Calcium 8.2 mg/dL (8.4-10.2); Carbon Dioxide 28 mmol/L (22-29); Chloride 112 mmol/L (96-108); Creatinine Clr Calc Pharmacy 92.6; Estimated Glomerular Filt Rate > 60; Glucose Random 104 mg/dL (60-115); Potassium 3.8 mmol/L (3.3-5.1); Sodium 146 mmol/L (135-145)
[2021-05-22 08:00] VITALS: BP 129/76; PULSE 91; RESP 18; TEMP 36.2; O2SAT 95
[2021-05-22] MEDS: Baclofen 10 MG TABLET PO ×2 (08:55→20:18)
[2021-05-22] MEDS: Dextrose 5 % 1,000 ML 100 ML IVCONT ×2 (08:59→18:13)
--- NOTE | 2021-05-22 12:20 | HO.PM.IMPN ---
Subjective Subjective Date of Service: 05/22/21 Interval History: no compmlaints Cardiovascular Cardiovascular: Reports no additional cardiovascular complaints Respiratory Respiratory: Reports no additional respiratory complaints Physical Exam Vital Signs: Vital Signs: Last Vital Signs Temp 97.1 F 05/22/21 08:00 Pulse 91 05/22/21 08:00 Resp 18 05/22/21 08:00 BP 129/76 05/22/21 08:00 Pulse Ox 95 05/22/21 08:00 Body Mass Index 18.3 General: AO X 3, no acute distress Resp: CTA bilateral CVS: S1,S2,RRR GI: soft, non tender, non distended Neuro: motor grossly intact Psych: appropriate affect skin: as shown previoulsy Objective Data Current Medications Generic Name Dose Route Start Last Admin Trade Name Freq PRN Reason Stop Dose Admin Acetaminophen 650 mg 05/19/21 18:16 05/19/21 20:06 Acetaminophen 325 Mg Tablet PO 650 mg Q6H PRN Administration Pain, Mild (Pain Scale 1-3) Atorvastatin Calcium 10 mg 05/19/21 21:00 05/21/21 21:28 Atorvastatin Calcium 10 Mg Tablet PO 10 mg BEDTIME BARBIE Administration Baclofen 10 mg 05/22/21 09:00 05/22/21 08:55 Baclofen 10 Mg Tablet PO 10 mg BID BARBIE Administration Clozapine 400 mg 05/20/21 21:00 05/21/21 21:27 Clozapine 100 Mg Tablet PO 400 mg BEDTIME BARBIE Administration Docusate Sodium 100 mg 05/19/21 18:16 Docusate Sodium 100 Mg Capsule PO BID PRN constipation Enoxaparin Sodium 40 mg 05/19/21 20:00 05/21/21 21:27 Enoxaparin Sodium 40 Mg/0.4 Ml Syringe SUBCUT 40 mg Q24H BARBIE Administration Dextrose 1,000 mls @ 100 mls/hr 05/22/21 07:45 05/22/21 08:59 D5w IVCONT 100 mls/hr .Q10H BARBIE Administration Nicotine 14 mg 05/19/21 18:45 05/22/21 09:03 Nicotine 14 Mg Patch.Td24 TRANSDERMA Not Given DAILY BARBIE Pharmacy Consult 1 each 05/19/21 18:05 Consult Rx Vancomycin Dosing MISCELLANE DAILY PRN Consult order Sodium Chloride 3 ml 05/20/21 00:00 05/22/21 08:56 0.9 % Sodium Chloride Flush 3 Ml Syringe IVFLUSH Not Given QSHIFT BARBIE Tamsulosin HCl 0.4 mg 05/19/21 21:00 05/21/21 21:28 Tamsulosin Hcl 0.4 Mg Capsule PO 0.4 mg BEDTIME BARBIE Administration Labs CBC & Chem 7: 05/22/21 05:46 05/22/21 05:46 Labs: Laboratory Results - last 24 hr 05/21/21 05/22/21 05/22/21 19:11 05:46 05:46 WBC 8.3 RBC 3.58 L Hgb 11.0 L Hct 35.4 L MCV 98.9 H MCH 30.7 MCHC 31.1 RDW 15.0 Plt Count 334 MPV 9.9 Absolute Nucleated RBC 0.000 Nucleated RBC % (auto) 0.0 Sodium 147 H 146 H Potassium 3.8 Chloride 112 H Carbon Dioxide 28 Anion Gap 10 L BUN 16 Creatinine 0.59 Estim Creat Clear Calc 92.6 Estimated GFR > 60 Random Glucose 104 Calcium 8.2 L D Microbiology Microbiology Results: Microbiology 05/19/21 15:26 Blood Culture - Preliminary Blood - Venous No growth after 48 hours. 05/19/21 14:35 Blood Culture - Preliminary Blood - Venous No growth after 48 hours. Quality Stroke Does the patient have a stroke diagnosis?: No VTE Prior VTE?: No VTE Risk Level:: Medical - moderate - high VTE Device Contraindication: N/A - Device Ordered VTE Drug Contraindication: N/A - Med Ordered Assessment and Plan (1) Hypernatremia: Status: Acute (2) Fever of unknown origin: Status: Acute Assessment and Plan: 66yo M with schizophrenia, PTSD recently discharged from SNF and brought in by ambulance due to deconditoning, weakness, inability to care for self, and found to have necrotic ulcer over R hip and sacral ulcer with sepsis physiology. ulcers do not appear infected will dc antibiotics and monitor hypernatremia D5w, monitor schizophrenia clozapine tobacco abuse - continue NRT BPH tamsulosin HLD statin VTE ppx - LMWH
--- NOTE | 2021-05-22 14:01 | MHC.CLN ---
FOLLOW UP PATIENT WITH WOUNDS AND NUTRITION DX MODERATE MALNUTRITION IN THE CONTEXT OF ACUTE ILLNESS/INJURY. REVIEW OF WOUND DOCUMENTATION SHOWS PRESSURE INJURY BILATERAL FEET, IN ADDITION TO NECROTIC RIGHT HIP AND STAGE I SACRUM. REGULAR DIET WITH OSCAR BID AND ENSURE TID TO PROMOTE NUTRITION AND WOUND HEALING. CONTINUE CURRENT DIET AND SUPPLEMENTS.
--- NOTE | 2021-05-22 14:45 | MHC.CM.PN ---
[facility] ARE OFFERING UNDER MEDICAID BENEFIT. PATIENT WILL NEED MDS COMPLETED AND UPLOADED. FAMILY IS DISCUSSING IF PATIENT SHOULD TRANSFER TO [facility], [facility], OR [facility], WHICH ARE ALL BEING OFFERED.
[2021-05-22 14:58] VITALS: BP 129/76; PULSE 91; O2SAT 95
[2021-05-22 15:57] VITALS: BP 119/73; PULSE 86; RESP 16; TEMP 36.2; O2SAT 98
[2021-05-22] MEDS: Tamsulosin HCL 0.4 MG CAPSULE PO (20:18)
[2021-05-22] MEDS: Atorvastatin Calcium 10 MG TABLET PO (20:18)
[2021-05-22] MEDS: Enoxaparin Sodium 40 MG/0.4 ML SYRINGE SUBCUT (20:18)
[2021-05-22] MEDS: cloZAPine 100 MG TABLET 400 MG PO (20:18)
[2021-05-23] VITALS: BP 120/70; PULSE 91; RESP 16; TEMP 36.4; O2SAT 97
[2021-05-23 03:58] LABS: Hematocrit 34.5 % (42-52); Hemoglobin 10.9 g/dl (14.0-18.0); Mean Corpuscular HGB Conc 31.6 g/dl (31.0-36.0); Mean Corpuscular Hemoglobin 31.4 pg (27.0-33.0); Mean Corpuscular Volume 99.4 fL (80-98); Mean Platelet Volume 9.2 fL (9.4-12.4); Platelet Count 316 X10*3/uL (160-400); Red Blood Count 3.47 X10*6/uL (4.60-5.80); White Blood Count 9.7 X10*3/uL (4.8-10.8)
[2021-05-23 04:31] LABS: Vancomycin Trough 5.9 mcg/mL (10.0-20.0)
[2021-05-23 04:36] LABS: Anion Gap 11 (12-20); Blood Urea Nitrogen 18 mg/dL (9-16); Calcium 7.8 mg/dL (8.4-10.2); Carbon Dioxide 26 mmol/L (22-29); Chloride 110 mmol/L (96-108); Creatinine Clr Calc Pharmacy 75.9; Estimated Glomerular Filt Rate > 60; Glucose Fasting 117 mg/dL (60-99); Potassium 3.7 mmol/L (3.3-5.1); Sodium 143 mmol/L (135-145)
[2021-05-23] MEDS: Dextrose 5 % 1,000 ML 100 ML IVCONT (06:30)
[2021-05-23 07:27] VITALS: BP 124/79; PULSE 84; RESP 18; TEMP 36.6; O2SAT 95
[2021-05-23] MEDS: Baclofen 10 MG TABLET PO (09:18)
[2021-05-23 10:13] VITALS: BP 124/79; PULSE 84; O2SAT 95
--- NOTE | 2021-05-23 10:58 | PM.DS ---
DS: Providers Provider Date of Service: 05/23/21 Date of admission: 05/19/21 18:16 Primary care physician: Alexander Billings MD Consults: 05/19/21 18:02 Consult to Infectious Diseases Routine Consulting Provider: Rafaela Friend Reason for consultation: infected/necrotic wound to R hip and sacral pressure ulcers Consult to Wound Care Routine Consulting Provider: [facility] Reason for consultation: infected/necrotic wound to R hip and sacral pressure ulcers DS: Diagnosis Discharge Diagnosis (1) Hypernatremia: Status: Acute (2) Fever of unknown origin: Status: Acute DS: Medications Discharge Medications Home Medications: Home Medications Medication Instructions Recorded Confirmed baclofen 10 mg PO BID 09/22/20 05/19/21 bisacodyl [Dulcolax (bisacodyl)] 10 mg GA DAILY PRN 09/22/20 05/19/21 clozapine 400 mg PO BEDTIME 09/22/20 05/19/21 magnesium hydroxide [Milk of 30 ml PO DAILY PRN 09/22/20 05/19/21 Magnesia] nicotine [Nicoderm CQ] 1 patch TRANSDERMAL DAILY 09/22/20 05/19/21 simvastatin 10 mg PO DAILY 09/22/20 05/19/21 tamsulosin [Flomax] 0.4 mg PO DAILY 09/22/20 05/19/21 oxybutynin chloride 1 tab PO DAILY 05/19/21 05/19/21 DS: Summary Hospital Course Hospital Course: Was admitted for fall, deconditioning, hypernatremia, suspected sepsis due to necrotic ulcer. He was initially given antibiotics and IV fluids. He was seen by infectious disease recommended holding antibiotics. Patient did not have any further fevers, his cultures were negative, therefore, was felt that his ulcer was unlikely to be infected. His sodium returned to normal. Will be discharged to long term facility, is encouraged to continue oral intake and work with rehab. he is expected to need less than 30 days at rehab. Time Spent with Patient Time attestation: Total time spent providing and/or coordinating discharge services: Discharge coordination time: Greater than 30 minutes Quality: Stroke Does the patient have a stroke diagnosis?: No Physical Exam Vital Signs: Vital Signs: Last Vital Signs Temp 98 F 05/23/21 07:27 Pulse 84 05/23/21 10:13 Resp 18 05/23/21 07:27 BP 124/79 05/23/21 10:13 Pulse Ox 95 05/23/21 10:13 Body Mass Index 18.3 physical exam: Gen: no acute distress. Lungs: clear to auscultation bilaterally Heart: rrr,[id number] heard, no murmurs Abd: soft, non-tender, non-distended Ext: no edema Skin: warm/well-perfused, ulcers multiple more like ero Neuro: alert and oriented to self and place only, no focal findings Psych: appropriate affect, impaired insight DS: Data Data Completed and Pending Labs on day of discharge: Laboratory Results - last 24 hr 05/23/21 05/23/21 05/23/21 03:52 03:52 03:52 WBC 9.7 RBC 3.47 L Hgb 10.9 L Hct 34.5 L MCV 99.4 H MCH 31.4 MCHC 31.6 RDW 15.0 Plt Count 316 MPV 9.2 L Absolute Nucleated RBC 0.000 Nucleated RBC % (auto) 0.0 Sodium 143 Potassium 3.7 Chloride 110 H Carbon Dioxide 26 Anion Gap 11 L BUN 18 H Creatinine 0.72 Estim Creat Clear Calc 75.9 Estimated GFR > 60 Fasting Glucose 117 H D Calcium 7.8 L Vancomycin Trough 5.9 L Preliminary micro results at discharge 05/19/21 15:26 Blood Culture - Preliminary Blood - Venous No growth after 48 hours. 05/19/21 14:35 Blood Culture - Preliminary Blood - Venous No growth after 48 hours. Discharge Plan Discharge Patient Disposition: [facility] Discharge Diagnosis: hypernatremia Referrals: Alexander Billings MD [Primary Care Provider] - 1 Week Discharge Medications: Continued oxybutynin chloride 15 mg tablet extended release 24 hr 1 tab PO DAILY RF: 0 nicotine [Nicoderm CQ] 14 mg/24 hr Patch 24 Hour 1 patch TRANSDERMAL DAILY RF: 0 simvastatin 10 mg Tablet 10 mg PO DAILY RF: 0 magnesium hydroxide [Milk of Magnesia] 400 mg/5 mL Suspension 30 ml PO DAILY PRN (Reason: Constipation) RF: 0 tamsulosin [Flomax] 0.4 mg Capsule 0.4 mg PO DAILY RF: 0 baclofen 10 mg Tablet 10 mg PO BID RF: 0 bisacodyl [Dulcolax (bisacodyl)] 10 mg Suppository 10 mg GA DAILY PRN (Reason: Constipation) RF: 0 clozapine 200 mg Tablet 400 mg PO BEDTIME RF: 0 Discharge Orders: Discharge Order (Routine); Ordered 05/23/21 Ordered By: Oswaldo Dubose Diet: advance to usual diet Activity on Discharge: As tolerated Stand Alone Forms: Patient Portal Discharge page Care Plan Goals: recovery Health Concerns: hypernatremia Plan of Treatment: enourage po intake Assessment: see above
[2021-05-23 12:30] LABS: COVID-19 Test Negative (Negative); IDNOW Serial# 9DD0AD1C
--- NOTE | 2021-05-23 14:26 | MHC.CM.PN ---
PATIENT IS DISCHARGED [facility]. TIME SET FOR 16:00 BROTHER MARLON ([phone]) AWARE AND IS GOING TO BE AT THE FACILITY PRIOR TO PATIENT ARRIVAL. PLANS ARE MARLON WITH SIGN PATIENT IN REQUIRED. IMM 05/22 IN CHART
--- NOTE | 2021-05-23 15:08 | MHC.CM.PN ---
ADIA ELDER MADE AWARE OF PATIENT TRANSFER TO [facility] TODAY. JERROD WAS ACTIVE WITH PATIENT CARE PRIOR TO ADMISSION HERE.
[2021-05-23 15:20] VITALS: BP 119/80; PULSE 68; RESP 16; TEMP 36.3; O2SAT 97
== END 2021-05-23 17:36 | disposition skilled nursing facility (03) | DRG 641 ==
LOC: HO.ED 17:22 → HO.EDOVER 18:41 → HO.S3 19:30
PROVIDERS: Internal Medicine; Physician Assistant; Admitting Provider Family Medicine; Emergency Provider Internal Medicine; Visit Provider Internal Medicine
DX: E87.0 Hyperosmolality and hypernatremia (principal); E44.0 Moderate protein-calorie malnutrition; Z68.1 Body mass index [BMI] 19.9 or less, adult; L97.829 Non-pressure chronic ulcer of other part of left lower leg with unspecified severity; L97.819 Non-pressure chronic ulcer of other part of right lower leg with unspecified severity; F43.10 Post-traumatic stress disorder, unspecified; R29.6 Repeated falls; E78.5 Hyperlipidemia, unspecified; F20.9 Schizophrenia, unspecified; E86.0 Dehydration; N40.0 Benign prostatic hyperplasia without lower urinary tract symptoms; Z74.1 Need for assistance with personal care; F17.210 Nicotine dependence, cigarettes, uncomplicated; Z71.6 Tobacco abuse counseling; Z91.81 History of falling; Z20.822 Contact with and (suspected) exposure to COVID-19; Z87.891 Personal history of nicotine dependence; Z79.899 Other long term (current) drug therapy
CPT/HCPCS: 36415; 71045; 73502; 80048; 80076; 80202; 80307; 81001; 81003; 82550; 83605; 83735; 84295; 84484; 85025; 85027; 85652; 86140; 87040; 87086; 87088; 87186; 87635; 93005; 97110; 97116; 97163; 99285; J1650; J2543; J3370

== ENCOUNTER 2021-05-27 08:10 | Outpatient (REF) | payer MEDICARE, MEDICAID, SELFPAY | END 2021-05-27 08:11 | disposition home or self-care (01) | LOC: HO.MMNH3L 08:10 | PROVIDERS: Visit Provider Family Medicine | DX: Z13.89 Encounter for screening for other disorder (principal) ==

== ENCOUNTER 2021-06-03 21:22 | Outpatient (REF) | payer MEDICARE, MEDICAID, SELFPAY | END 2021-06-03 21:23 | disposition home or self-care (01) | LOC: HO.MMNH3L 21:22 | PROVIDERS: Visit Provider Family Medicine | DX: Z13.89 Encounter for screening for other disorder (principal) ==

== ENCOUNTER → 2022-01-28 08:49 | Outpatient (BNVA) | payer MEDICARE, MEDICAID, SELFPAY | PROVIDERS: Visit Provider Urology | DX: N40.1 Benign prostatic hyperplasia with lower urinary tract symptoms (principal); N13.8 Other obstructive and reflux uropathy | CPT/HCPCS: 51798; 99212 ==